=== PATIENT | female | born 1950 | race Caucasian/White ===

== ENCOUNTER 2024-04-01 09:28 | Outpatient (REF) | payer MEDICARE, SELFPAY ==
--- NOTE | ~2024-04-01 | XR_ITS ---
EXAMINATION: XR KNEE 3 VIEWS LEFT HISTORY: M25.562 - Pain in left knee COMPARISON: There are no prior studies available for comparison. FINDINGS: Three views of the left knee are submitted. Osseous mineralization is normal. There is no fracture or dislocation. There is severe osteoarthritis of the medial compartment with joint space narrowing and osteophyte formation. Milder changes are noted involving the lateral patellofemoral compartments there is no joint effusion. XR/XR knee LT 3V IMPRESSION: Osteoarthritis of the left knee as described. Electronically signed by: Reese Cartagena MD 04/04/2024 08:46 AM EST
== END 2024-04-01 09:29 | disposition home or self-care (01) ==
LOC: HO.HOSX 09:28
PROVIDERS: Visit Provider Orthopaedic Surgery
DX: M25.562 Pain in left knee (principal); M17.12 Unilateral primary osteoarthritis, left knee
CPT/HCPCS: 73562; 99212

== ENCOUNTER 2024-04-01 11:06 | Outpatient (AMB) | payer MEDICARE, SELFPAY ==
--- NOTE | 2024-04-01 11:07 | MHC.OFFVIS ---
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 She did undergo right total knee replacement surgery several years ago. She reports minimal discomfort in her right knee. She describes her left knee pain as sharp and severe in nature. She has failed the last 3 months of conservative treatment which has included Tylenol, meloxicam, topical creams and physical therapy exercises. She has had cortisone injections in the past which gave her minimal relief. She has not had a viscosupplementation injection. She wishes to hold off on left total knee replacement surgery for as long as possible. She states that her left knee pain is now interfering with her activities of daily living and her ability to sleep well through night. Allergies No Known Allergies Allergy (Verified 04/01/24 11:24) Medication List - Last Reviewed 04/01/24 by SHRADDHA Dooley albuterol sulfate 90 mcg/actuation inhalation azithromycin 250 mg PO DIRECTED bupropion HCl XL 300 mg PO DAILY meloxicam 15 mg PO DAILY mirabegron ER (Myrbetriq) 50 mg PO DAILY tacrolimus 0.1% topical DAILY PFS Social History (Updated 04/01/24 @ 11:26 by SHRADDHA Dooley) Patient Tobacco Use Status: Never used Tobacco Current occupational status: retired Current occupation: rt handed Physical Exam Vital Signs: BMI result Body Mass Index 25.4 Const Other: Well-nourished well-developed very friendly female awake alert and oriented x3 in no acute distress Extrem Other: Bilateral lower extremity examination shows good capillary refill, no skin lesions noted, normal sensation light touch Left knee examination shows a minimal effusion, palpable crepitus with range of motion, pain with range of motion, range of motion from -3 degrees to 115 degrees, no instability Results Reviewed Results Reviewed: X-rays of the patient's left knee show severe joint space narrowing, subchondral sclerosis, no acute bony abnormalities Assessment & Plan Assessment & Plan (1) Osteoarthritis of left knee: Code(s): M17.12 - Unilateral primary osteoarthritis, left knee Category: Medical Plan Mrs. Patel presents with progressively worsening left knee pain due to osteoarthritis. I had a lengthy discussion with the patient regarding the treatment options. She wishes to hold off on left total knee replacement surgery for as long as possible. I agree with this plan. She has not gotten good relief from cortisone injections in the past. Thus, I will see whether or not her insurance company will cover a viscosupplementation injection. I will see her back once the injection is available. If she fails continued non operative treatments we will further discuss the risks and benefits of left total knee replacement surgery. Feel free to call me at any time should questions regarding her orthopedic management arise. I spent 21 minutes in reviewing the patient's records and imaging studies, seeing the patient and documenting in the medical record. Orders: Orders XR knee LT 3V Today M25.562 - Pain in left knee Coding Level of Care Code Est Pt Level 3 (51780) Complex EM visit Add On G2211 Diagnoses Osteoarthritis of left knee M17.12
[2024-04-01 11:23] VITALS: BMI 25.4
--- OUTSIDE RECORDS SUMMARY | 2024-04-01 12:33 | XMS_ITS ---
Author Name [facility] Organization Unknown History of Medication Use Medication Directions Dispensed Refills Start Date End Date Stat bupropion HCl XL 300 mg 24 hr tablet, extended release TAKE 1 TABLET BY MOUTH EVERY DAY 12/09/2022 active amoxicillin 500 mg tablet TAKE 4 TABS 1 HOUR PRIOR TO DENTAL APPOINTMENT 12/09/2022 active oxybutynin chloride ER 15 mg tablet,extended release 24 hr TAKE 1 TABLET BY MOUTH EVERY DAY 12/09/2022 active meloxicam 15 mg tablet TAKE 1 TABLET (15 MG TOTAL) BY MOUTH NEEDED. 12/09/2022 active amoxicillin 500 mg capsule TAKE 4 TABS 1 HOUR PRIOR TO DENTAL APPOINTMENT 12/09/2022 active BinaxNOW COVID-19 Ag Self Test kit USE DIRECTED 12/09/2022 com pleted
--- OUTSIDE RECORDS SUMMARY | 2024-04-01 12:33 | XMS_ITS | Continuity of Care Document ---
Author Organization [facility] Address [address], [place] [address]- Care Team Providers Care Senior Teradata Developer Name Role Phone Oumou SHORE, Liborio Barcenas Primary Care Physician [id number] Date[facility]s): 02/19/24 - 03/20/24 [facility] [address], [address] [place] [address] Attending Physician: Baldo Soliman Admitting Physician: Baldo Soliman Referring Physician: Baldo Soliman Encounter Type: Triage Allergies, Adverse Reactions, Alerts No Known Allergies Immunizations Given and Recorded Vaccine Date Status Refusal Reason tetanus-diphtheria toxoids (Td) 03/26/10 Given Medications 20-30 calf compression stockings 20-30 calf compression stockings, See Instructions, # 2 each, Refills 2, Tot. Refills 2, Maintenance, use as directed, 05/25/15 11:00:12 AM EST, Compound Start Date: 05/25/15 Status: Ordered Quantity: 2.0 Unit: each Repeat number: 3 buPROPion 300 mg/24 hours (XL) oral tablet, extended release 1 tablet = 300 mg, By Mouth, Daily, # 30 tablet, 0 Refills, Maintenance, 08/24/20 12:03:00 PM EDT, ERTablet, Partial fill upon patient request if the prescription is for a schedule II opioid drug. Start Date: 08/24/20 Status: Ordered Quantity: 30.0 Unit: tablet Repeat number: 1 calcium and vitamin D combination 500 mg-200 iu oral tablet 0 Refills Start Date: 12/24/06 Status: Ordered Repeat number: 1 Compression Stockings See Instructions, # 4 each, Maintenance, surgical, knee length 20-30 mm Hg, 08/24/20 12:32:00 PM EDT,Supply Start Date: 08/24/20 Status: Ordered Quantity: 4.0 Unit: each Repeat number: 1 Glucosamine Chondroitin MSM Complex oral tablet 1 tablet, By Mouth, 3 times a day, 0 Refills, Maintenance, 11/18/10 11:26:52 AM EDT Start Date: 11/18/10 Status: Ordered Repeat number: 1 meloxicam 15 mg oral tablet See Instructions, 1 tablet By Mouth PRN, 0 Refills, Maintenance, 11/12/18 10:51:20 AM EDT Start Date: 11/12/18 Status: Ordered Repeat number: 1 multivitamin Multiple Vitamins oral tablet 1, tablet, By Mouth, Daily, 0 Refills Start Date: 12/24/06 Status: Ordered Repeat number: 1 Myrbetriq 50 mg oral tablet, extended release 1 tablet = 50 mg, By Mouth, Daily, # 90 tablet, 3 Refills, Maintenance, 02/19/24 9:53:00 AM EST, [facility], Partial fill upon patient request if the prescription is for a schedule II opioid drug., 159, cm, 08/31/23 16:43:00 EDT, Height, 58.7, kg, 02/14/23 12:03:00 EST, Dry Weight Start Date: 02/19/24 Status: Ordered Quantity: 90.0 Unit: tablet Repeat number: 4 sertraline 50 mg oral tablet See Instructions, week 1: take 1/2 tab daily weeks 2-3: take 1 tab daily week 4 and after: take 2 tabs daily, # 60 tablet, 1 Refills, Maintenance, 03/07/16 4:01:33 PM EST, [id number] Start Date: 03/07/16 Status: Ordered Quantity: 60.0 Unit: tablet Repeat number: 2 Turmeric = 300 mg, By Mouth, Daily, 0 Refills, Maintenance, 11/12/18 10:48:13 AM EDT Start Date: 11/12/18 Status: Ordered Repeat number: 1 Problem List Condition Confirmation Course Effective Dates Status Health St atus Informant Acute lumbar back pain Confirmed Active Ankle Sprain Confirmed 06/21/12 Active Anxiety Confirmed Active Arthralgia of the ankle and/or foot Confirmed Active Asymptomatic Varicose Veins Confirmed 01/03/11 Active Depression Confirmed Active External hemorrhoids Confirmed Active Hammer toe Confirmed Active Insomnia Confirmed Active Insomnia Confirmed Active Sprains and Strains of Knee and Leg Confirmed 01/03/11 Active Social History Social History Type Response Smoking Status Never smoker entered on: 11/15/15 Sex Sex Representation Female (finding) Laboratory * Event Display: Non BH Lab Results Authored Date: Patient Care team information Care Team Personnel Name: Oumou SHORE, Liborio Barcenas Position: Reference Physician Member Role: PCP Address: [address] [place] [address] [address] Telecom: Care Team Related Persons Name: CONOR HERNANDEZ Insurance Providers Guarantor name: JUAN HERNANDEZ Health Plan Information #: 1 Payer: NA Member Number: NA Policy Number: NA Group Number: NA
--- OUTSIDE RECORDS SUMMARY | 2024-04-01 12:33 | XMS_ITS | Data Portability ---
Author Organization [place] [facility] [place] Address [address] [facility] [address] [place] [address] Assessment Encounter Date Assessment Date Assessment LastModified by Organization Details LastModified Time 12/05/2022 12/05/2022 72-year-old female status post R-TKA 11/28/19. She appears to be doing well clinically they will continue with stretching exercises. There are no longer need to take antibiotic prophylaxis prior to dental work. If her dentist wishes to take over management they can do so. Follow-up visit 5 years for recall. Should patient have any orthopedic needs should they arise she should contact our office and should be referred to the appropriate specialist. Regarding her left knee intermittent pain we did discuss treatment options however she would like to hold at this time. If she does change her mind she will call our office and we will schedule an appointment accordingly. She agrees to the above-noted plan Indirect care and treatment in conjunction with Dr. Sales Additional treatment plan discussed with the patient (only initiated if in boldface font) otherwise not applicable. Treatment may include the following; - Provider focused nonsteroidal anti-inflammator y regimen (discussed were the pros, cons, benefits and risks as well as any black box warnings) in patients over 60 years old they should be very cautious in taking these medications due to potential decreased kidney function and or elevated blood pressure. - Analgesic pain medication for pain suppression (discussed were the pros, cons, benefits and risks as well as any black box warnings) - The use of topical pain relieving medication were discussed - The use of ice to decrease inflammation and pain - The use of assistive ambulatory devices for ambulation and fall prevention - Formal specific guided physical therapy program I reviewed my findings at length with the patient today. ??We discussed the nature and etiology of this problem along with current treatment options. We discussed the expected course and outcomes and what to expect. We also discussed risks and benefits. ?? All of their questions were answered today, and there was exhibited understanding and comprehension of all that was discussed. Time Spent: 10 minutes were spent reviewing previous imaging and charting. ??10 minutes were spent obtaining patient history. ??5 minutes were spent on physical exam. ??5??minutes were spent explaining diagnosis and assessment. Today's documentation was made using voice recognition software. This note may contain grammatical errors secondary to the software. Not available 12/07/2022 08:41:22 Plan of Treatment Reminders Order Date Submit Date Provider Last Modified By Organization Details Last Modified Time Details Appointments None record ed. Lab None record ed. Referral None record ed. Procedures None record ed. Surgeries None record ed. Imaging XR, knee, 4 or more view 023 12/06/19 23 [email or web address] [id number] [facility], [address], [place], [address], 3 10:56:36 XR, knee, 4 or more view 023 12/06/19 23 [email or web address] [facility], [address], [place], [address], 3 10:56:36 Medication Orders None record ed. Patient TargetsNo targets recorded. Patient Instructions Encounter Date Encounter Id Patient Instructions Last Modified By Organization Details Last Modified Time 12/05/2022 [id number] X-ray of the rig ht knee reveals well-seated well-positioned total knee arthroplasty without sign of loosening. Left knee AP, [place], lateral and sunrise view reveals tricompartmental severe degenerative change. Not available 12/07/2022 08:40:15 Reason for Referral None Reported. Medical Equipment None Reported. Medications Name Sig Start Date Stop Date Status Note LastModified by Organization Details LastModified Time amoxicillin 500 mg capsule TAKE 4 TABS 1 HOUR PRIOR TO DENTAL APPOINTME NT active Not Available Not Available No t Available oxybutynin chloride ER 15 mg tablet,exte nded release 24 hr TAKE 1 TABLET BY MOUTH EVERY DAY active Not Available Not Available No t Available meloxicam 15 mg tablet TAKE 1 TABLET (15 MG TOTAL) BY MOUTH NEEDED. active Not Available Not Available No t Available amoxicillin 500 mg tablet TAKE 4 TABS 1 HOUR PRIOR TO DENTAL APPOINTME NT 2022 active Not Available Not Available Not Avai lable bupropion HCl XL 300 mg 24 hr tablet, extended release TAKE 1 TABLET BY MOUTH EVERY DAY active Not Available Not Available No t Available BinaxNOW COVID-19 Ag Self Test kit USE DIRECTED 12/05 completed Not Available Not Available Not Available Vitals None Recorded Social History None recorded. Functional Status None recorded. Mental Status None recorded. Family History Nothing Reported. Medical History No medical history recorded. Gynecological HistoryNo gynecological history recorded. Obstetrics History GPAL:G 0 P 0 0 0 0 Past Encounters Encounter ID Performer Location Encounter Start Date Encounter Closed Date Diagnosis/Indication Diagnosis SNOMED-CT Code Diagnosis ICD10 Code Diagnosis Note [id number] MD LUPILLO [facility] [address] [facility] [address] [place] [address] 12/05/2022 13:04:58 12/05/2022 14:04:05 History of right total knee replacement [id number] 254265 Z96.651 Pain of le ft knee joint [id number] 66016 M25.562 Health Concerns Section Related Observation LastModified by Organization Detai ls LastModified Time None Recorded Concern Status LastModified by Organization Details LastModified Time None Recorded Advance Directives Directive None Recorded Payers Encounter Date Sequence Insurance Name Policy Number Policy Aaron Covered Member ID Aaron Member ID Guarantor Name 12/05/2022 1 [facility]: [place]IC[place] P[place] BLUE (MEDICARE REPLACEMENT PPO) [id number] Lucinda Patel [id number] Lucinda Patel Notes Date Note Type Note Provider Name and Address Organization Details Recorded Time 12/05/2022 text/html She does complai n of intermittent left knee pain however it is tolerable to her at this time. 72-year-old female status post R-TKA 11/28/19. Here for scheduled follow-up. Patient states she is doing well do stretching exercises takes antibiotics prior to dental work. No other complaints at this time. TAHIR BEAR PA-C [address] [facility] [address], [place], [address], [place] [facility], P 12/07/2022 08:41:40 OBGyn Episode No OBEpisode recorded.
== END 2024-04-01 11:41 | disposition home or self-care (01) ==
PROVIDERS: PCP Internal Medicine; Visit Provider Orthopaedic Surgery
DX: M17.12 Unilateral primary osteoarthritis, left knee (principal)
CPT/HCPCS: 99213; G2211

== ENCOUNTER 2024-07-31 11:32 | Outpatient (AMB) | payer MEDICARE, SELFPAY ==
--- NOTE | 2024-07-31 11:33 | A.OFFVIS_ITS ---
Vital Signs 07/31/24 11:36 Height 5 ft 0.5 in Weight 132 lb BMI 25.4 Intake Visit Reasons: Left knee pain Intake Note: Lucinda is a 73 year old female who presents with complaints of progressively worsening left knee pain. She did undergo right total knee replacement surgery approximately 3 years ago. She reports minimal discomfort in her right knee. She describes her left knee pain as sharp and severe in nature. She has failed the last 3 months of conservative treatment which has included Tylenol, meloxicam, topical creams and physical therapy exercises. She has had cortisone injections in the past which gave her minimal relief. She states that her left knee pain is now interfering with her activities of daily living and her ability to sleep well through night. Allergies No Known Allergies Allergy (Verified 07/31/24 11:36) Medication List - Last Reconciled 07/31/24 by Michelet Connors MD albuterol sulfate 90 mcg/actuation inhalation azithromycin 250 mg PO DIRECTED bupropion HCl XL 300 mg PO DAILY meloxicam 15 mg PO DAILY mirabegron ER (Myrbetriq) 50 mg PO DAILY tacrolimus 0.1% topical DAILY PFSH Social History Patient Tobacco Use Status: Never used Tobacco Current occupational status: retired Current occupation: rt handed Physical Exam Vital Signs: BMI result Body Mass Index 25.4 Const Other: Well-nourished well-developed very friendly female awake alert and oriented x3 in no acute distress Extrem Other: Bilateral lower extremity examination shows good capillary refill, no skin lesions noted, normal sensation light touch Left knee examination shows a minimal effusion, palpable crepitus with range of motion, pain with range of motion, range of motion from -3 degrees to 115 degrees, no instability Results Reviewed Results Reviewed: X-rays of the patient's left knee taken previously show end-stage degenerative joint disease with grade 4 [id number] arthritis, osteophyte formation, subchondral sclerosis, no acute bony abnormalities Assessment & Plan Assessment & Plan (1) Left knee pain: Code(s): M25.562 - Pain in left knee Category: Medical (2) Osteoarthritis of left knee: Code(s): M17.12 - Unilateral primary osteoarthritis, left knee Category: Medical Plan Ms. Patel presents with progressively worsening left knee pain due to end- stage degenerative joint disease. I had a lengthy discussion with the patient regarding the treatment options. At this point she appears to be failing continued non operative treatments. The risks and benefits of left total knee replacement surgery were discussed at length with the patient. She is interested in proceeding with surgery later this year. She will contact my office to pick a surgery date. I will see her back 1 week prior to her surgery to answer any final questions that she might have. Feel free to call me at any time should questions regarding her orthopedic management arise. I spent 22 minutes in reviewing the patient's records and imaging studies, seeing the patient and documenting in the medical record. Coding Level of Care Code Est Pt Level 3 (48783) Complex EM visit Add On G2211 Diagnoses Left knee pain M25.562 Osteoarthritis of left knee M17.12
[2024-07-31 11:36] VITALS: BMI 25.4
--- OUTSIDE RECORDS SUMMARY | 2024-07-31 13:05 | XMS_ITS | Clinical Summary ---
Author Organization [facility] Address [address] [place] [address] Care Team Providers Care Slab Puller Name Role Phone Liborio Coello MD Primary Care Provider [phone] Allergies Active Allergy Reactions Criticality Noted Date Comments Bee Pollen Swelling,Rash Low 04/11/2018 Rash>significant bruising - pt advised to carry epipen for future Sertraline Other (See Comments) Low 04/11/2018 No energy, sleepy Medications Medication Sig Dispensed Refills Start Date End Date Status Probiotic Product (ALIGN) capsule Take 1 capsule by mouth daily. 0 Active CINNAMON PO Take 1,000 mg by mouth daily as needed. 0 Active raloxifene (EVISTA) tablet 60 mg Take 60 mg by mouth daily. 0 Active buPROPion (WELLBUTRIN SR) 150 MG 12 hr tablet Take 150 mg by mouth 2 (two) times a day. 0 10/13/2019 Active DULoxetine HCl 30 MG CSDR Take 30 mg by mouth daily. 0 10/09/2019 Active LUTEIN PO Take 1 caplet by mouth daily. 0 Active Multiple Vitamin (MULTI-VITAMIN) tablet Take 1 tablet by mouth daily. 0 Active oxybutynin (DITROPAN XL) 15 MG 24 hr tablet Take 15 mg by mouth daily. 0 Active Misc Natural Products (OSTEO BI-FLEX JOINT SHIELD PO) Take 2 tablets by mouth daily. 0 Active Calcium Citrate-Vitamin D (CALCIUM CITRATE + D3 PO) Take 1 tablet by mouth every evening. 0 Active cholecalciferol (VITAMIN D3) 10 MCG (400 UNIT) CAPS capsule Take 1 capsule by mouth every evening. 0 Active oxyCODONE (ROXICODONE) 5 MG immediate release tablet Take 1 tablet (5 mg total) by mouth every 4 (four) hours as needed. 40 tablet 0 11/28/2019 Active aspirin EC 81 MG EC tablet Take 1 tablet (81 mg total) by mouth 2 (two) times a day after meals. 84 tablet 0 11/28/2019 Active senna-docusate (PERICOLACE) 8.6-50 MG Take 1 tablet by mouth 2 (two) times a day. 20 tablet 0 11/28/2019 Active methocarbamol (ROBAXIN) 750 MG tablet Take 1 tablet (750 mg total) by mouth every 6 (six) hours as needed. 40 tablet 0 11/28/2019 Active amoxicillin (AMOXIL) 500 MG tablet Take 4 tabs 1 hour prior to dental appointment 20 tablet 3 12/11/2019 Active darifenacin (ENABLEX) 7.5 MG 24 hr tablet 0 01/22/2020 Active meloxicam (MOBIC) 15 MG tablet Take 1 tablet (15 mg total) by mouth daily. 30 tablet 3 12/14/2020 Active Active Problems Problem Noted Date Diagnosed Date Arthritis of right knee 11/27/2019 Arthritis of knee, right 07/05/2018 Arthritis of knee, left 07/05/2018 Family History Medical History Relation Name Comments Hypertension Father Cancer Mother Diabetes Mother Relation Name Status Comments Father Mother Social History Tobacco Use Types Packs/Day Years Used Date Smoking Tobacco: Never Smokeless Tobacco: Never Alcohol Use Standard Drinks/Week Comments Yes 3 (1 standard drink = 0.6 oz pur e alcohol) Sex and Gender Information Value Date Recorded Sex Assigned at Female 11/11/2019 11:17 AM EDT Gender Identity Female 11/11/2019 11:17 AM EDT Sexual Orientation Straight 11/27/2019 7: 07 AM EDT Job Start Date Occupation Industry Not on file Not on file Not on file Last Filed Vital Signs Vital Sign Reading Time Taken Comments Blood Pressure 112/75 11/28/2019 8:11 AM EDT Pulse 65 11/28/2019 8:11 AM EDT Temperature 36.7 ??C (98 ??F) 11/28/2019 8:11 AM EDT Respiratory Rate 16 11/28/2019 8:11 AM EDT Oxygen Saturation 98% 11/28/2019 8:11 AM EDT Inhaled Oxygen Concentration - - Weight 68 kg (150 lb) 11/27/2019 6:55 AM EDT Height 154.9 cm (5' 1 ) 11/27/2019 6:55 AM EDT Body Mass Index 28.34 11/27/2019 6:55 AM EDT Plan of Treatment Health Maintenance Due Date Last Done Comments Depression Screening 1962 Preventative Health Evaluation 12/05/1969 Colon Cancer Screening (Colonoscopy) 12/05/1996 Breast Cancer Screening (Mammogram) 12/05/2001 Shingrix-Zoster Vaccine (1 o f 2) 12/05/2001 Fall Risk Assessment 12/05/2016 Osteoporosis Screening (DEXA Scan) 12/05/2016 COVID-19 Vaccine (3 - 2023-2 5 season) 2023 05/18/2020, 04/27/2020 Influenza Vaccine (#1) 2023 , 01/10/2019, 12/25/2017 RSV Adult > 60+ Yrs or (1 - 1-dose 75+ series) 12/05/2026 DTap / Tdap / Td (2 - Td or Tdap) 10/05/2027 10/04/2017 Pneumococcal Vaccine Completed 01/10/2019, 12/13/2017 Hepatitis C Screening Completed 09/14/2020 Hepatitis B Vaccines Aged Out No long er eligible based on patient's age to complete this topic RSV Ped < 20 months Aged Out No longe r eligible based on patient's age to complete this topic Medical Devices Implanted Type Area Central Office Associate Device Identifier Shelf Expiration Date Model / Serial / Lot Cement Simplex P Radiopaque Full Dose Bone 10 Pack - [id number] - [id number] Implanted:Qty: 1 on 11/27/2019 by Michelet Connors MD at [facility] Right: Knee [employer] 6191-1-010 / / Description:LOT [id number] Cement Simplex P Radiopaque Full Dose Bone 10 Pack - [id number] - [id number] Implanted:Qty: 1 on 11/27/2019 by Michelet Connors MD at [facility] Right: Knee [employer] 6191-1-010 / / [id number] Component Triathlon 3 Posterior Stabilized Cemented Femoral - [id number] - [id number] Implanted:Qty: 1 on 11/27/2019 by Michelet Connors MD at [facility] Right: Knee [employer] [id number] 04/20/2024 5515-F-302 / / [id number] Peg Triathlon Modular Fix Distal Femur Knee - [id number] - [id number] Implanted:Qty: 1 on 11/27/2019 by Michelet Connors MD at [facility] Right: Knee [employer] [id number] 02/28/2024 5575-X-000 / / [id number] Baseplate Triathlon 4 Primary Cemented Tibial Knee - [id number] - [id number] Implanted:Qty: 1 on 11/27/2019 by Michelet Connors MD at [facility] Right: Knee [employer] [id number] 05/18/2024 5520-B-400 / / [id number] Insert Triathlon 4 11mm Posterior Stabilized Bearing X3 - [id number] - [id number] Implanted:Qty: 1 on 11/27/2019 by Michelet Connors MD at [facility] Right: Knee [employer] [id number] 01/16/2024 5532-G-411 / / [id number] Component Triathlon 8mm 29mm Symmetric X3 Ptlar Totl Knee - [id number] - [id number] Implanted:Qty: 1 on 11/27/2019 by Michelet Connors MD at [facility] Right: Knee [employer] [id number] 05/06/2024 5550-G-298 / / [id number] Advance Directives For more information, please contact: [phone] Latest Code Status on File Code Status Date Activated Date Inactivated Comments Full Code 11/27/2019 10:24 AM 11/28/2019 8:01 PM This c ode status was ascertained in the following way: discussion with patient . Code Status History Code Status Date Activated Date Inactivated Comments Full Code 11/27/2019 6:36 AM 11/27/2019 10:24 AM This c ode status was ascertained in the following way: discussion with patient . Care Teams Slab Puller Relationship Specialty Start Date End Date Liborio Coello MD [address] [place] [id number] PCP - General Internal Medicine 07/02/18
--- OUTSIDE RECORDS SUMMARY | 2024-07-31 13:05 | XMS_ITS | Data Portability ---
Author Organization [place] [facility] [place] Address [address] [facility] [address] [place] [address] Assessment Encounter Date Assessment Date Assessment LastModified [...] findings at length with the patient today. ? ? ?We discussed the nature and etiology of this problem along with current treatment options. We discussed the expected course and outcomes and what to expect. We also discussed risks and benefits. ? ? ? All of their questions were answered today, and there was exhibited understanding and comprehension of all that was discussed. Time Spent: 10 minutes were spent reviewing previous imaging and charting. ? ? ?10 minutes were spent obtaining patient history. ? ? ?5 minutes were spent on physical exam. ? ? ?5? ? ?minutes were spent explaining diagnosis and assessment. Today's [...] 4 or more view 023 12/06/19 23 [email or web address] [facility], [address], [place], [address], 3 10:56:36 XR, knee, 4 or more view 023 12/06/19 23 [email or web address] [facility], [address], [place], [address], 3 10:56:36 Medication Orders None record ed. Patient TargetsNo targets recorded. Patient Instructions Encounter Date Encounter Id Patient Instructions Last Modified By Organization Details Last Modified Time 12/05/2022 [id number] X-ray of the rig ht knee reveals [...] SNOMED-CT Code Diagnosis ICD10 Code Diagnosis Note [id number] SHANNON ALEMAN [address] [address] 12/05/2022 13:04:58 12/05/2022 14:04:05 History of right total knee replacement [id number] 633139 Z96.651 Pain of le ft knee joint [id number] 59489 M25.562 Health Concerns Section Related Observation LastModified by Organization Detai ls LastModified Time None Recorded Concern Status LastModified by Organization Details LastModified Time None Recorded Advance Directives Directive None Recorded Payers Encounter Date Sequence Insurance Name Policy Number Policy Aaron Covered Member ID Aaron Member ID Guarantor Name 12/05/2022 1 [facility]: MEDIC[place] P[place] BLUE (MEDICARE REPLACEMENT PPO) [id number] Lucinda Patel [id number] Lucinda Patel Notes Date Note Type [...] complaints at this time. TAHIR BEAR PA-C [address] [place] [address],[facility] [address], [place], [address], [place] [facility], P 12/07/2022 08:41:40 OBGyn Episode No OBEpisode recorded.
== END 2024-07-31 11:53 | disposition home or self-care (01) ==
LOC: HO.HOS 11:33
PROVIDERS: Visit Provider Orthopaedic Surgery
DX: M25.562 Pain in left knee (principal); M17.12 Unilateral primary osteoarthritis, left knee
CPT/HCPCS: 99213; G2211

== ENCOUNTER → 2024-07-31 11:32 | Outpatient (BNVA) | payer MEDICARE, SELFPAY | PROVIDERS: Visit Provider Orthopaedic Surgery | DX: M25.562 Pain in left knee (principal); M17.12 Unilateral primary osteoarthritis, left knee | CPT/HCPCS: 99212 ==

== ENCOUNTER → 2024-12-01 13:07 | Outpatient (BNV) | payer MEDICARE, SELFPAY | PROVIDERS: PCP Internal Medicine; Visit Provider Internal Medicine Cardiovascular Disease | DX: R94.31 Abnormal electrocardiogram [ECG] [EKG] (principal); Z01.810 Encounter for preprocedural cardiovascular examination | CPT/HCPCS: 93010 ==

== ENCOUNTER → 2024-12-05 13:14 | Outpatient (BNVA) | payer MEDICARE, SELFPAY | DX: Z01.818 Encounter for other preprocedural examination (principal) ==

== ENCOUNTER 2024-12-25 08:13 | Outpatient (AMB) | payer MEDICARE, SELFPAY ==
--- OUTSIDE RECORDS SUMMARY | 2024-01-08 12:07 | XMS_ITS | Encounter Summary ---
Author Organization [facility] Address [address] [place] [address] Care Team Providers Care Overseamer Name Role Phone Liborio Coello MD Primary Care Provider +1- [phone] Encounter Details Date Type Department Care Team (Latest Contact Info) Description 01/08/2024 12:07 PM EDT Hospital Encounter TH HISTORIC ENCOUNTERS EASTERN CONVERSION ONLY Arslan Delgadillo MD Need updated address, phone and fax Constipation, unspecified Social History Tobacco Use Types [...] PM EDT Narrative 01/09/2024 8:05 AM EDT [facility] Diagnostic Imaging Department [address] [place] [address] Patient: JUAN PATEL /Age/Sex: 1950 - 73 - F Unit#: [id number] Location/Status: SPDIGEN/REG CLI Mnemonic/Ordering Site: ABDOFLEREC/SPDI Ordering [...] There is evidence of moderate constipation. Code 49026 Dictating Physician: SHUKRI SURESH MD Electronically Signed by: SHUKRI SURESH MD Dic Date/Time: 01/09/24803 Sign date/Time: 01/09/24804 Procedure Note Shukri Suresh MD - 01/22/2024 [facility] Diagnostic Imaging Department [address] [place], [place] [address] Patient: JUAN PATEL /Age/Sex: 1950 - 73 - F Unit#: [id number] Location/Status: SPDIGEN/REG CLI Mnemonic/Ordering Site: [facility] Ordering Physician: ARSLAN DELGADILLO MD DR Abdomen [...] pattern. There is evidence ofmoderate constipation. Code 74437 Dictating Physician: SHUKRI SURESH MD Electronically Signed by: SHUKRI SURESH MD Dic Date/Time: 01/09/24803 Sign date/Time: 01/09/24804 Arslan Delgadillo MD IMG XR PROCEDURES Final Result documented in this encounter Visit Diagnoses Diagnosis Constipation, unspecified documented in this encounter Care Teams Overseamer Relationship Specialty Start Date End Date Liborio Coello MD [address] [place] [address] PCP - General Internal Medicine 07/02/18 documented as of this encounter
--- NOTE | 2024-12-25 08:20 | A.OFFVIS_ITS ---
Vital Signs 12/25/24 08:29 Height 5 ft 0.5 in Weight 135 lb BMI 25.9 Intake Visit Reasons: Pre-Op: L TKA w/ 12/29/24 Intake Note: Lucinda is a 74 year old female who presents with complaints of progressively worsening left knee pain. The patient did undergo right total knee replacement surgery in 2021. She reports minimal discomfort in her right knee. She describes her left knee pain as sharp and severe in nature. Her left knee pain has gotten worse over the last few years in spite of continued non operative treatments. She has had multiple injections given into her left knee. The most recent injection gave her minimal relief. At this point her left knee pain is interfering with her activities of daily living and her ability to sleep well through the night. She has tried Tylenol and anti-inflammatory medicines which gave her only mild relief. The patient has difficulty walking even short distances because of her left knee pain. Allergies bee pollen (bee stings) Allergy (Intermediate, Verified 12/25/24 08:29) Swelling for several weeks Medication List - Last Reconciled 12/25/24 by Michelet Connors MD Bifidobacterium longum (Align (B.longum)) 10,000,000 cells PO DAILY biotin 10,000 mcg PO DAILY bupropion HCl XL 300 mg PO QAM calcium carbonate (Calcium 500) 1,000 mg PO BEDTIME cholecalciferol (vitamin D3) (Vitamin D3) 10 mcg PO BEDTIME docusate sodium (Colace) 100 mg PO QAM meloxicam 15 mg PO DAILY PRN quwrsikkpnfi-syct-trpux acid 18-400 mg-mcg (Centrum Women) 1 tab PO QAM polyethylene glycol 3350 (Miralax) 17 grams PO 2XW vibegron (Gemtesa) 75 mg PO QAM walker Folding front wheeled walker [facility] Medical History Family history of colon cancer in mother Spinal stenosis Scoliosis Back pain Varicose vein of leg Depression Osteoarthritis Surgical History History of lumpectomy of left breast Hx of varicose vein ligation H/O colonoscopy History of total right knee replacement Social History Are you a primary memory care program director to a significant other at home: Yes (son w/Down's Syndrome) Do you presently have visiting nurse or other home services: No Patient Tobacco Use Status: Never used Tobacco Current occupational status: retired Current occupation: rt handed Physical Exam Const Other: Well-nourished well-developed very friendly female awake alert and oriented x3 in no acute distress Extrem Other: Bilateral lower extremity examination shows good capillary refill, no skin lesions noted, normal sensation light touch Left knee examination shows a minimal effusion, palpable crepitus with range of motion, pain with range of motion, range of motion from -3 degrees to 115 degrees, no instability Results Reviewed Results Reviewed: X-rays of the patient's left knee show end-stage degenerative joint disease with grade 4 rzxf-fs-sbso arthritis, subchondral sclerosis, osteophyte formation, no acute bony abnormalities Assessment & Plan Assessment & Plan (1) Osteoarthritis of left knee: Code(s): M17.12 - Unilateral primary osteoarthritis, left knee Category: Medical Plan Ms. Patel presents with progressively worsening left knee pain due to end- stage degenerative joint disease. I had a lengthy discussion with the patient regarding the treatment options. At this point she has failed continued non operative treatments. The risks and benefits of left total knee replacement surgery were discussed at length with the patient. The patient wishes to proceed with surgery. mountain services manager will be consulted following her surgery for home physical therapy and nursing. The patient will follow-up as instructed. Feel free to call me at any time should questions regarding her orthopedic management arise. I spent 20 minutes in reviewing the patient's records and imaging studies, seeing the patient and documenting in the medical record. Orders: Orders Hemoglobin A1c Today Z01.818 - Encounter for other preprocedural examination Coding Level of Care Code Est Pt Level 3 (13941) Complex EM visit Add On G2211 Diagnoses Osteoarthritis of left knee M17.12
--- OUTSIDE RECORDS SUMMARY | 2024-12-25 08:26 | XMS_ITS | Clinical Summary ---
Author Organization [facility] [address] [facility] Address [address] [place] [address] Phone Care Team Providers Care Entry Level Account Representative Name Role Phone Liborio Coello MD Primary Care Provider [phone] Allergies Active Allergy Reactions Criticality Noted Date [...] 1 tablet by mouth. Active glucos sul 7KEt-jya-nurbc- C-Mn (Glucosamine Chondroitin) 550-30-1 mg capsule Take [...] Patient aware to call or message in [facility] pending symptomatic improvement. Patient would like to [...] sites 04/11/2018 Overview (09/24/2024): Followed by her food inspector. Treated with Evista until 2020. By patient report bone density had improved and treatment was discontinued in 2020. 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 ([facility] V24) 04/11/2018 Ankle sprain 06/21/2012 Varicose vein of leg 01/03/2011 Overview (09/24/2024): Edema is well controlled with compression stockings. Immunizations Immunization Administration Dates Next Due Pfizer SARS-CoV-2 COVID-19, mRNA, LNP-S, preservative free 05/18/2020,04/27/2020 Surgical History Surgery Date Site/Laterality Comments OTHER SURGICAL HISTORY Bilateral PROCEDURE:veiin ablation;COMMENT:X2 BREAST LUMPECTOMY Left PROCEDURE:BREAST LUMPECTOMY KNEE SURGERY Right PROCEDURE:KNEE SURGERY;COMMENT:SCOPE COLONOSCOPY 04/20/2021 FLEXIBLE SIGMOIDOSCOPY PROCEDURE:SIGMOIDOSCOPY TOTAL KNEE ARTHROPLASTY 11/27/2019 Right PROCEDURE:TOTAL KNEE ARTHROPLASTY;COMMENT:Procedure: REPLACEMENT TOTAL KNEE; Surgeon: Michelet Connors MD; Location: [facility] Service: Orthopedics; Laterality: Right; JOINT REPLACEMENT [...] 05/06/2024 11:20 AM EST Plan of Treatment Health Maintenance Due Date Last Done Comments Breast Cancer Screening 1950 Zoster Vaccines (1 of 2) 12/05/1970 Falls Risk Assessment 02/22/2022 Medicare Annual Wellness Visit 02/22/2022 Osteoporosis Screening (Bone Density Screening) 02/22/2022 Social Influencers of Health Screening 02/22/2022 Depression Screening 03/26/2024 COVID-19 Vaccine ( season) 2024 04/14/2023, 02/07/2022, 02/08/2021, Additional history exists Influenza Vaccine (#1) 2024 , 01/19/2023, 01/13/2022, [...] this topic Medical Devices Implanted Type Area Business Development Associate Device Identifier Shelf Expiration Date Model / Serial / Lot Cement Simplex P Radiopaque Full Dose Bone 10 Pack - [id number] Implanted:Qty: 1 on 11/27/2019 by Michelet Connors MD Right: Knee [employer] 6191-010 / / Description:LOT [id number] Cement Simplex P Radiopaque Full Dose Bone 10 Pack - [id number] Implanted:Qty: 1 on 11/27/2019 by Michelet Connors MD Right: Knee [employer] 6191-010 / / [id number] Component Triathlon 3 Posterior Stabilized Cemented Femoral - [id number] Implanted:Qty: 1 on 11/27/2019 by Michelet Connors MD Right: Knee [employer] [id number] 04/20/2024 5515-F-302 / / [id number] Peg Triathlon Modular Fix Distal Femur Knee - [id number] Implanted:Qty: 1 on 11/27/2019 by Michelet Connors MD Right: Knee [employer] [id number] 02/28/2024 5575-X-000 / / [id number] Baseplate Triathlon 4 Primary Cemented Tibial Knee - [id number] Implanted:Qty: 1 on 11/27/2019 by Michelet Connors MD Right: Knee [employer] [id number] 05/18/2024 5520-B-400 / / [id number] Insert Triathlon 4 11mm Posterior Stabilized Bearing X3 - [id number] Implanted:Qty: 1 on 11/27/2019 by Michelet Connors MD Right: Knee [employer] [id number] 01/16/2024 5532-G-411 / / [id number] Component Triathlon 8mm 29mm Symmetric X3 Ptlar Totl Knee - [id number] Implanted:Qty: 1 on 11/27/2019 by Michelet Connors MD Right: Knee [employer] [id number] 05/06/2024 5550-G-298 / / PTRL Procedures Procedure Name Priority Date/Time Associated Diagnosis Comments EXTERNAL COLONOSCOPY REPORT Routine 05/19/2024 10:16 AM EST from Last 3 Months or Most Recently Relevant to Health Maintenance Results * External Colonoscopy Report (05/19/2024 10:16 AM EST) Anatomical Region Laterality Modality Endoscopy Historical Provider GI~PROCEDURE ORDERABLES F inal Result from Last 3 Months or Most Recently Relevant to Health Maintenance Insurance BLUE [employer]OSS - [place] MEDICARE ADVANTAGE Care Teams Entry Level Account Representative Relationship Specialty Start Date End Date Liborio Coello MD [address] [place] [address] PCP - General Internal Medicine 07/02/18
--- OUTSIDE RECORDS SUMMARY | 2024-12-25 08:26 | XMS_ITS | Encounter Summary ---
Author Organization [facility] Address [address] [facility] [address] [place] [address] Phone Care Team Providers Care Connection Worker Name Role Phone Liborio Coello MD Primary Care Provider [phone] Eamon Mayer MD Unavailable Arslan Hamlin MD Unavailable [phone] Michelet Connors MD Unavailable [phone] Karthik Patel DO Unavailable [phone] Reason for Visit * Reason Onset Date Comments Pre-op Visit 10/09/2024 [facility] + + Left total knee replacement Encounter Details Date Type Department Care Team (Late st Contact Info) Description 10/09/2024 Telephone [employer] [address] [place] [address] Liborio Coello MD [address] [place] [address], [address] [place] [address] [email or web address] Pre-op Visit ([facility] + + Left total knee replacement [...] as of this encounter Progress Notes * Nuria Spears - 12/01/2024 3:36 PM EDT [facility] called and pt already had lab work, and EKG for pre-op and they will fax the results. * Cyndy Sarmiento MA - 10/20/2024 1:01 PM EDT Received pre-op form from [facility]. Pt need appointment- surgery date . * Latesha Ramirez - 10/09/2024 9:16 AM EDT [facility] Phrases: Pre-op Appointment Request Type of Anesthesia: Spinal and block Procedure / Surgery Type: Left total knee replacement Location of Procedure: [facility] Is EKG needed:YES/NO: yes Is Lab Work needed:YES/NO: yes Procedure Date: 12/29/2024 Name of Surgeon (First, Last): Dr. Michelet Connors Name of person to contact with Pre-op info, including contact number: Lisa Confirm you have informed the patient that the Pre-op Paperwork must be faxed to the office before the appt.:yes or no or NA: Yes [facility] Call [facility] CSS Agent (Please do not reply to this user, as this inbox is not monitored.) Thank you documented in this encounter Plan of Treatment Upcoming Encounters Date Type Department Care Team ([facility] st Contact Info) Description 07/16/2025 11:00 AM EDT Office Visit [address] [place] [address] Liborio Coello MD [address] [place] [address], [address] [place] [address] documented as of this encounter Visit Diagnoses Not on filedocumented in this encounter Additional Health Concerns Assessment Noted Time PHQ-2 Depression Total Score: 0 07/09/19 25 1:06 AM EDT documented as of this encounter Care Teams Connection Worker Relationship Specialty Start Date End Date Liborio Coello MD [address] [place] [address], [address] [place] [address] PCP - General Family Medicine 04/01/18 Eamon Mayer MD [address] [place] [address] Obstetrics and Gynecology 01/10/19 Arslan Hamlin MD [address] [place] [address] Gastroenterology 01/10/19 Michelet Connors MD [address] [place] [address] [place] [address] Orthopedic Surgery 11/03/19 Karthik Patel DO [address] [place] [address] Dr [address] [place] [address] [email or web address] Cardiology 06/15/20 documented as of this encounter Additional Source Comments The information contained in this document represents components of the legal health record. It is not the complete legal health record.[facility]
--- OUTSIDE RECORDS SUMMARY | 2024-12-25 08:26 | XMS_ITS | Clinical Summary ---
Author Organization [facility] Address [address] [facility] [address] [place] [address] Phone Care Team Providers Care Warehouse Order Puller Name Role Phone Liborio Coello MD Primary Care Provider [phone] Eamon Mayer MD Unavailable Arslan Hamlin MD Unavailable [phone] Michelet Connors MD Unavailable [phone] Karthik Patel DO Unavailable Allergies Active Allergy Reactions Criticality Noted Date [...] NEEDED. 30 tablet 2 08/05/19 25 Active Automated Blood Pressure Kit - M Cuff (Arm circ 22-32 cm/8.6-12.6 in)Indications:Ess ential hypertension Check BP every 2-3 times a week 1 kit 08/15/19 Active GEMTESA 75 mg tablet Take 75 mg by mouth daily. 11/27/19 25 Active docusate sodium (COLACE) 100 MG capsule 04/26/19 Active ciclopirox-salicyl ic acid 0.77-2 % Sham Apply topically. 025 Discontin ued(No longer taking) triamcinolone acetonide 0.1 % cream Apply topically 2 (two) times a day. 025 Discontin ued(No longer taking) tkjfcjbv-axvl-zyg9 -C-breana-bosw (OSTEO BI-FLEX TRIPLE STRENGTH) 750 mg-644 mg- 30 mg-1 mg Tab Take by mouth. Plus turmeric 025 Discontin ued(No longer taking) Active Problems Problem Noted Date Diagnosed Date Degeneration of intervertebr al disc of lumbar region with discogenic back pain 12/04/2024 Assessment & Plan (12/04/2024 3:53 PM EDT): Better with home exercise program, continue the same. Overactive bladder 08/14/2024 Assessment & Plan (12/04/2024 3:51 PM EDT): Doing well with current medication, continue the same. Assessment & Plan (08/14/2024 4:05 PM EDT): If she is not able to tolerate Myrbetriq, I would consider trial of Gemtesa Chronic constipation 07/10/2024 Assessment & Plan (07/10/2024 2:17 PM EDT): Has improved using a stool softener as recommended by her supervisor intermediates, but she continues to have symptoms. They [...] Hepatic hemangioma 11/03/2019 Overview (11/03/2019): Dx approx 1999, followed by Dr Boubacar VALENTIN Recurrent major depressive disorder in partial r emission 04/11/2018 Assessment & Plan (12/04/2024 3:51 PM EDT): Well-controlled, continue current medication. Assessment & Plan (07/10/2024 2:16 PM EDT): [...] son moving back to his apartment in [place] and concerns about her 's alcohol use. [...] second opinion I can refer her to [facility] vascular. Assessment & Plan (11/03/2019 12:07 PM EDT): Ankle edema is due to varicose veins. This should not be a significant complicating factor for surgery. Osteopenia of multiple sites 04/11/2018 Overview (09/14/2020): Followed by her hand gluer and slicer. Treated with Evista until 2020. By patient [...] her diet. She will follow-up with her hand gluer and slicer to discuss when she is due for another bone density. I told her that I can manage this in the future once her hand gluer and slicer retires. Primary osteoarthritis of left knee 04/11/2018 Assessment & Plan (12/04/2024 3:50 PM EDT): Labs and EKG done earlier this week at [facility] were reviewed and showed no significant abnormality. The patient is at low risk for complication related to surgery and there is no contraindication to proceed with her knee arthroplasty. Assessment & Plan (10/31/2022 1:00 PM EDT): Doing reasonably well, only rarely needing medication to control her pain. Continue current activity and use meloxicam as needed. Assessment & Plan (10/11/2021 12:35 PM EDT): Gait abnormality likely has to do with arthritic changes in her knees and her back. Agree with recommendation from her employee service officer to start physical therapy. If this is [...] Patient is planning to follow-up with Dr. Cnonors to discuss a total knee replacement. Assessment & Plan (04/12/2018 5:15 PM EST): Patient's pain is most likely due to osteoarthritis in her knees. We will start her on meloxicam. If she does not see any improvement next week she will call back and we will try her on diclofenac. If this does not improve her pain I would refer to rheumatology. Bee sting allergy 04/11/2018 Primary osteoarthritis involving multiple joints 04/11/2018 Assessment & Plan (05/07/2023 1:06 PM EST): Doing well, continue current medication Resolved Problems Problem Noted Date Diagnosed Date Resolved Date Essential hypertension 08/14/202408/14 Elevated blood pressure read ing in office without diagnosis of hypertension 08/14/20242024 Assessment & Plan (08/14/2024 4:05 PM EDT): [...] so helpful with her overactive bladder symptoms. COVID-19 11/26/2023 07/10/2024 Assessment & Plan (11/26/2023 [...] needed at this point. Abdominal bloating 07/14/2019 Assessment & Plan (07/14/2019 11:49 AM EDT): [...] me know if things are gradually improving. Malaise and fatigue 10/10/2018 12/05/19 25 Assessment & Plan (10/10/2018 10:45 AM EDT): Most likely this is due to venlafaxine so I will change her to duloxetine. Patient would like to have some labs checked to make sure there is nothing else abnormal so we will do that today. Primary osteoarthritis of knee 04/12/2018 10/10/2018 Mild single current episode of major depressive disorder 04/11/2018 10/10/2018 Degenerative lumbar spinal stenosis 04/11/2018 12/04/2024 Assessment & Plan (04/11/2022 4:05 PM EST): [...] Either way this may improve with meloxicam Encounters Date Type Department Care Team Description 12/17/[address] [place] [address] Liborio Coello MD orders (Hearing test) 12/04/2024 3:30 PM EDT Office Visit [address] [place] [address] Liborio Coello MD Primary osteoarthritis of left knee (Primary Dx); Degeneration of intervertebral disc of lumbar region with discogenic back pain; Overactive bladder; Recurrent major depressive disorder in partial remission 12/02/[address] [address] Liborio Coello MD Triage (Covid question) 11/11/[address] [place] [address] Cyndy Sarmiento MA Forms & Paperwork ([facility] PT 10/31/24) 11/05/[address] [place] [address] Cyndy Sarmiento MA Forms & Paperwork ([facility] PT) 10/09/[address] [place] [address] Liborio Coello MD Pre-op Visit ([facility] + + Left total knee replacement [...] Sign Reading Time Taken Comments Blood Pressure 127/75 12/04/2024 3:23 PM EDT Pulse 57 12/04/2024 3:17 PM EDT Temperature 36.7 C (98 F) 12/04/2024 3:17 PM EDT Respiratory Rate - - Oxygen Saturation 100% 12/04/2024 3:17 PM EDT Inhaled Oxygen Concentration - - Weight 60.3 kg (133 lb) 12/04/2024 3:17 PM EDT Height 151.7 cm (4' 11.72 ) 12/04/2024 3:17 PM E DT Body Mass Index 26.22 12/04/2024 3:17 PM EDT Plan of Treatment Upcoming Encounters Date Type Department Care Team (Late st Contact Info) Description 07/16/2025 11:00 AM EDT Office Visit [facility] Medical [facility] Medicine [address] [place] [address] [place] [address] Liborio Coello MD [address] [facility], [address] [place] [address] Health Maintenance Due Date Last Done Comments HEPATITIS A VACCINES (1 of 2 - Risk 2-dose series) 12/05/1970 COLOGUARD 12/05/1996 FIT TEST 12/05/1996 FOBT 12/05/1996 SIGMOIDOSCOPY 12/05/1996 VIRTUAL COLONOSCOPY 12/05/1996 ZOSTER VACCINES (1 of 2) 12/05/2001 RSV VACCINE (1 - Risk 60-74 years 1-dose series) 2011 INFLUENZA VACCINE (#1) 2024 , 01/19/2023, 01/13/2022, Additional history exists MAMMOGRAM 10/31/2024 10/31/2022, 04/26, 01/17/2018 COVID-19 VACCINE ( season) 2024 04/14/2023, 02/07/2022, 02/08/2021, Additional history exists DEPRESSION SCREENING 07/08/2025 07/08/2024 COLONOSCOPY 04/20/2026 04/20/2021, 02/20/2018 COLORECTAL CANCER SCREENING 04/20/2026 Adult Td,Tdap Booster 10/05/2027 10/04/2017, 011 OSTEOPOROSIS SCREENING INITIAL (ONE-TIME) 11/03/2030 Postponed from 12/05/2016 (Not Clinically Appropriate) PNEUMOCOCCAL VACCINES (50+ years) Completed 01/10/2019, 12/13/2017 HEPATITIS C SCREENING Completed 09/14/2020 SMOKING STATUS SCREENING (Once After 26 Yrs) Completed 12/04/2024 HIB VACCINES Aged Out No longer eligi [...] AM EDT Breast cancer screening by mammogram HM COLONOSCOPY FOR RESULT ENTRY ONLY Routine 04/20/2021 HEPATITIS C ANTIBODY, QUALITATIVE Routine 09/14/2020 12:29 PM EDT Need for hepatitis C screening test from Last 3 Months or Most Recently Relevant to Health Maintenance Results * COLONOSCOPY FOR RESULT ENTRY ONLY (04/20/2021) Historical Provider HEALTH MAINTENANCE Edited Result - Final * Hepatitis C antibody, qualitative (09/14/2020 12:29 PM EDT) HCV NON-REACTIV E NON-REACTI VE [facility] Blood 09/14/2020 12:2 9 PM EDT 09/14/2020 12:34 PM EDT Liborio Coello MD LAB BLOOD ORDERABLES Final Result [address] [address] * HM MAMMOGRAPHY FOR RESULT ENTRY ONLY (05/11/2020) us Historical Provider HEALTH MAINTENANCE Edited Result - Final from Last 3 Months or Most Recently Relevant to Health Maintenance [place] [address] [place] [address] MEDICARE PPO BLUE REPLACEMENT Care Teams Warehouse Order Puller Relationship Specialty Start Date End Date Liborio Coello MD [address] [place] [address], [address] [place] [address] PCP - General Family Medicine 04/01/18 Eamon Mayer MD [address] [place] [address] Obstetrics and Gynecology 01/10/19 Arslan Hamlin MD [address] [place] [address] Gastroenterology 01/10/19 Michelet Connors MD [address] [place] [address] Dr [address] [place] [address] Orthopedic Surgery 11/03/19 Karthik Patel DO [address] [place] [address] Dr [address] [place] [address] Cardiology 06/15/20 Additional Source Comments The information contained in this document represents components of the legal health record. It is not the complete legal health record.[facility]
--- OUTSIDE RECORDS SUMMARY | 2024-12-25 08:26 | XMS_ITS | Clinical Summary ---
Author Organization [facility] Address [address] [place] [address] Care Team Providers Care Dispersion Mixer Name Role Phone Liborio Coello MD Primary Care Provider [phone] Allergies Active Allergy Reactions Criticality Noted Date [...] (DEXA Scan) 12/05/2016 COVID-19 Vaccine (3 - 2024-2 6 season) 2024 05/18/2020, 04/27/2020 Influenza Vaccine (#1) 2024 , [...] this topic Medical Devices Implanted Type Area Third Mate Device Identifier Shelf Expiration Date Model / Serial / Lot Cement Simplex P Radiopaque Full Dose Bone 10 Pack - [id number] - [id number] Implanted:Qty: 1 on 11/27/2019 by Michelet Connors MD at [facility] Right: Knee [employer] 6191-1-010 / / Description:LOT [id number] Cement Simplex P Radiopaque Full Dose Bone 10 Pack - [id number] - [id number] Implanted:Qty: 1 on 11/27/2019 by Michelet Connors MD at [facility] Right: Knee [employer] 6191-1-010 / / [id number] Component Triathlon 3 Posterior Stabilized Cemented Femoral - [id number] - [id number] Implanted:Qty: 1 on 11/27/2019 by Michelet Connors MD at [facility] Right: Knee [employer] [id number] 04/20/2024 5515-F-302 / / [id number] Peg Triathlon Modular Fix Distal Femur Knee - 135388 - [id number] Implanted:Qty: 1 on 11/27/2019 by Michelet Connors MD at [facility] Right: Knee [employer] [id number] 02/28/2024 5575-X-000 / / [id number] Baseplate Triathlon 4 Primary Cemented Tibial Knee - [id number] - [id number] Implanted:Qty: 1 on 11/27/2019 by Michelet Connors MD at [facility] Right: Knee [employer] [id number] 05/18/2024 5520-B-400 / / [id number] Insert Triathlon 4 11mm Posterior Stabilized Bearing X3 - [id number] - [id number] Implanted:Qty: 1 on 11/27/2019 by Michelet Connors MD at [facility] Right: Knee [employer] [id number] 01/16/2024 5532-G-411 / / [id number] Component Triathlon 8mm 29mm Symmetric X3 Ptlar Totl Knee - [id number] - [id number] Implanted:Qty: 1 on 11/27/2019 by Michelet Connors MD at [facility] Right: Knee [employer] [id number] 05/06/2024 5550-G-298 / / PTRL Advance Directives For more information, please contact: [phone] Latest Code Status on File Code Status [...] way: discussion with patient . Care Teams Dispersion Mixer Relationship Specialty Start Date End Date Liborio Coello MD [address] [place] [id number] PCP - General Internal Medicine 07/02/18
--- OUTSIDE RECORDS SUMMARY | 2024-12-25 08:26 | XMS_ITS | Data Portability ---
Author Organization [place] [facility] Address [address] [place] [address] Assessment Encounter Date Assessment Date Assessment LastModified [...] findings at length with the patient today. We discussed the nature and etiology of this problem along with current treatment options. We discussed the expected course and outcomes and what to expect. We also discussed risks and benefits. All of their questions were answered today, and there was exhibited understanding and comprehension of all that was discussed. Time Spent: 10 minutes were spent reviewing previous imaging and charting. 10 minutes were spent obtaining patient history. 5 minutes were spent on physical exam. 5minutes were spent explaining diagnosis and assessment. Today's [...] knee, 4 or more view 023 12/06/19 [email or web address] [facility], [address], [place], [address], 3 10:56:36 XR, knee, 4 or more view 023 12/06/19 [email or web address] [facility], [address], [place], [address], 3 10:56:36 Medication Orders None record ed. Patient TargetsNo targets recorded. Patient Instructions Encounter Date Encounter Id Patient Instructions Last Modified By Organization Details Last Modified Time 12/05/2022 [id number] X-ray of the rig ht knee reveals well-seated well-positioned total knee arthroplasty without sign of loosening. Left knee AP, [place], lateral and sunrise view reveals tricompartmental severe degenerative change. Not available 12/07/2022 08:40:15 Reason for Referral None Reported. Problems Name Problem SNOMED Code Status Onset Date Resolution Date Notes Provider Name and Address Organization Details Recorded Time Arthritis of right knee joint 82964691914 48376 Active 2018 Arthritis of knee, right Art hritis of right knee Not Available [facility] 5 00:26:20 Arthritis of left knee joint 10277202168 84651 Active 2018 Arthritis of knee, left Not Available [facility] 5 00:26:21 Problem Notes None recorded. Medical Equipment None Reported. Allergies Allergen ID Allergen Name Allergen Category Reaction Reaction Severity Criticality Documentation Date Start Date Code Code System Note Provider Name and Address Organization Details Recorded Time 017314 sertralin e medicatio n Not available Not available Not available 12/16/20242018 72067 RxNorm React ion: Other (See Comme nts), sever ity: Unkno wn;No energ y, sleep y Not Available [facility] 5 01:30:50 465556 bee pollen environme nt,medica tion Not available Not available Not available 12/16/20242018 42259 7 RxNorm React ion: Swell ing, sever ity: Unkno wn;Re actio n: Rash, sever ity: Unkno wn;Ra sh>si gnifi cant bruis ing - pt advis ed to carry epipe n for futur e Not Available [facility] 5 01:30:51 Medications Name Sig Start Date Stop Date Status Note LastModified by Organization Details LastModified Time amoxicillin 500 mg capsule TAKE 4 TABS 1 HOUR PRIOR TO DENTAL APPOINTME NT active Not Available Not Available No t Available bupropion HCl SR 150 mg tablet,12 hr sustained-r elease Take 150 mg by mouth 2 (two) times a day. 2019 active Not Available Not Available Not Avai lable venlafaxine ER 75 mg capsule,ext ended release 24 hr Take 75 mg by mouth. 11/10 completed Not Available Not Available Not Available oxybutynin chloride ER 15 mg tablet,exte nded release 24 hr Take 15 mg by mouth daily. active Not Available Not Available No t Available meloxicam 15 mg tablet TAKE 1 TABLET (15 MG TOTAL) BY MOUTH NEEDED. active Not Available Not Available No t Available sennosides 8.6 mg-docusate sodium 50 mg tablet Take 1 tablet by mouth 2 (two) times a day. 2019 active Not Available Not Available Not Avai lable lidocaine-p rilocaine 2.5 %-2.5 % topical kit APPLY TO AFFECTED AREA 2 HOURS PRIOR TO APPOINTME NT 11/10 completed Not Available Not Available Not Available aspirin 81 mg tablet,laurent yed release Take 1 tablet (81 mg total) by mouth 2 (two) times a day after meals. 2019 active Not Available Not Available Not Avai lable amoxicillin 500 mg tablet TAKE 4 TABS 1 HOUR PRIOR TO DENTAL APPOINTME NT 2022 active Not Available Not Available Not Avai lable methocarbam ol 750 mg tablet Take 1 tablet (750 mg total) by mouth every 6 (six) hours as needed. 2019 active Not Available Not Available Not Avai lable methylpredn isolone acetate 40 mg/mL suspension for injection 07/05 completed Not Available Not Available Not Available glucosamine sulfate 500 mg capsule Take 500 mg by mouth. 11/10 completed Not Available Not Available Not Available omeprazole 20 mg capsule,del ayed release Take 1 capsule (20 mg total) by mouth daily. 11/28 completed Not Available Not Available Not Available raloxifene 60 mg tablet Take 60 mg by mouth daily. active Not Available Not Available No t Available epinephrine 0.3 mg/0.3 mL injection, auto-inject or Inject 0.3 mg into the muscle. 11/10 completed Not Available Not Available Not Available oxycodone 5 mg tablet Take 1 tablet (5 mg total) by mouth every 4 (four) hours as needed. 2019 active Not Available Not Available Not Avai lable cholecalcif sylvester (vitamin D3) 10 mcg (400 unit) capsule Take 1 capsule by mouth every evening. active Not Available Not Available No t Available bupropion HCl XL 300 mg 24 hr tablet, extended release TAKE 1 TABLET BY MOUTH EVERY DAY active Not Available Not Available No t Available darifenacin ER 7.5 mg tablet,exte nded release 24 hr 2019 active Not Available Not Available Not Avai lable calcium 500 mg (as carbonate)- vit D3 10 mcg (400 unit) chewable tablet Chew 1 tablet by mouth. 11/10 completed Not Available Not Available Not Available lidocaine (PF) 10 mg/mL (1 %) injection solution 07/05 completed Not Available Not Available Not Available duloxetine 30 mg capsule,del ayed release sprinkle Take 30 mg by mouth daily. 2019 active Not Available Not Available Not Avai lable BinaxNOW COVID-19 Ag Self Test kit USE [...] Diagnosis SNOMED-CT Code Diagnosis ICD10 Code Diagnosis IMO Codes Diagnosis Note [id number] SHANNON ALEMAN [facility] [address] [facility] [address] [place] [address] 12/05/2022 13:04:58 12/05/2022 14:04:05 History of right total knee replacement [id number] 992181 Z96.651 Pain of le ft knee joint 1390595167 59128 M25.562 Health Concerns Section Related Observation LastModified by Organization Detai ls LastModified Time None Recorded Concern Status LastModified by Organization Details LastModified Time None Recorded Advance Directives Directive None Recorded Payers Insurance Date Sequence Insurance Name Policy Number Policy Aaron Covered Member ID Aaron Member ID Guarantor Name 12/05/2022 1 [facility] MEDICARE PPO BLUE (MEDICARE REPLACEMENT PPO) [id number] Lucinda Patel [id number] Lucinda Patel Notes Date Note Type Note Provider Name and Address Organization Details Recorded Time 12/05/2022 text/html She does complain of intermittent left knee pain however it is tolerable to her at this time. 72-year-old female status post R-TKA 11/28/19. Here for scheduled follow-up. Patient states she is doing well do stretching exercises takes antibiotics prior to dental work. No other complaints at this time. TAHIR BEAR PA-C [address] [facility] [address], [place], [address], [place] [facility] 12/07/2022 08:41:40 OBGyn Episode No OBEpisode recorded.
[2024-12-25 08:29] VITALS: BMI 25.9
== END 2024-12-25 08:43 | disposition home or self-care (01) ==
LOC: HO.HOS 08:14
PROVIDERS: Visit Provider Orthopaedic Surgery
DX: M17.12 Unilateral primary osteoarthritis, left knee (principal)
CPT/HCPCS: 99024

== ENCOUNTER → 2024-12-25 08:13 | Outpatient (BNVA) | payer MEDICARE, SELFPAY | PROVIDERS: Visit Provider Orthopaedic Surgery | DX: Z01.818 Encounter for other preprocedural examination (principal); M17.12 Unilateral primary osteoarthritis, left knee | CPT/HCPCS: 99212 ==

== ENCOUNTER 2024-12-29 06:15 | Day surgery (SDC) | payer MEDICARE, SELFPAY ==
--- OUTSIDE RECORDS SUMMARY | 2024-01-08 12:07 | XMS_ITS | Encounter Summary ---
Author Organization Address [address] [place] [address] Care Team Providers Care Hay Buckler Name Role Phone Liborio Coello MD Primary Care Provider +1- [phone] Encounter Details Date Type Department Care Team (Latest Contact Info) Description 01/08/2024 12:07 PM EDT Hospital Encounter TH HISTORIC ENCOUNTERS EASTERN CONVERSION ONLY Arslan Delgadillo MD [address] [place] [address] Constipation, unspecified Social History Tobacco Use Types [...] as of this encounter Plan of Treatment Upcoming Encounters Date Type Department Care Team (Late st Contact Info) Description 12/12/2024 2:20 PM EDT Office Visit Gastroenterology - [address] [place] [phone] Pauly Cherry PA [address] [place] [address] documented as of this encounter Procedures Procedure Name Priority Date/Time Associated Diagnosis Comments ABDOMEN FLAT AND ERECT Routine 01/09/2024 8:05 AM EDT Constipation, unspecified documented in this encounter Results * DR ABDOMEN FLAT AND ERECT (01/09/2024 8:05 AM EDT) Anatomical Region Laterality Modality Radiographic Nisha ging 01/08/2024 12:1 5 PM EDT Narrative 01/09/2024 8:05 AM EDT [facility] Diagnostic Imaging Department [address] [place] [address] Patient: JUAN PATEL /Age/Sex: 1950 - 73 - F Unit#: [id number] Location/Status: SPDIGEN/REG CLI Mnemonic/Ordering Site: [facility] Ordering Physician: ARSLAN DELGADILLO [...] There is evidence of moderate constipation. Code 14827 Dictating Physician: SHUKRI SURESH MD Electronically Signed by: SHUKRI SURESH MD Dic Date/Time: 01/09/24803 Sign date/Time: 01/09/24804 Procedure Note Shukri Suresh MD - 01/22/2024 [facility] Diagnostic Imaging Department [address] [place] [address] Patient: JUAN PATEL /Age/Sex: 1950 - 73 - F Unit#: [id number] Location/Status: SPDIGEN/REG CLI Mnemonic/Ordering Site: ABDOFLEREC/SPDI Ordering [...] pattern. There is evidence ofmoderate constipation. Code 33049 Dictating Physician: SHUKRI SURESH MD Electronically Signed by: SHUKRI SURESH MD Dic Date/Time: 01/09/24803 Sign date/Time: 01/09/24804 Arslan Delgadillo MD IMG XR PROCEDURES Final Result documented in this encounter Visit Diagnoses Diagnosis Constipation, unspecified documented in this encounter Care Teams Hay Buckler Relationship Specialty Start Date End Date Liborio Coello MD [address] [place] [address] PCP - General Internal Medicine 07/02/18 documented as of this encounter
--- OUTSIDE RECORDS SUMMARY | 2024-11-20 12:46 | XMS_ITS | Encounter Summary ---
Author Organization [facility] Address [address] [place] [id number] Phone Care Team Providers Care Law Firm Administrator Name Role Phone Liborio Coello MD Primary Care Provider [phone] Eamon Mayer MD Unavailable Arslan Hamlin MD Unavailable [phone] Michelet Connors MD Unavailable [phone] Karthik Patel DO Unavailable [phone] Reason for Visit * Reason Onset Date Comments Pre-op Visit 10/09/2024 [facility] + + Left total knee replacement Encounter Details Date Type Department Care Team (Late st Contact Info) Description 10/09/2024 Telephone [facility] [address] [place] [address] Liborio Coello MD [address] [place] [address], [address] [place] [address] [email or web address] Pre-op Visit ([facility] + + Left total knee replacement ) Social History Tobacco Use Types Packs/Day Years Used Date Smoking Tobacco: Never Smokeless Tobacco: Never Alcohol Use Standard Drinks/Week Comments Yes 1 (1 standard drink = 0.6 oz pur e alcohol) wine Education Answer Date Recorded Are you interested in more education? Not on priscilla e 07/21/2022 Are you concerned about learning? Not on file 07/21/2022 No 07/21/2022 No 07/21/2022 Digital Access Answer Date Recorded No 08/19/2022 No 08/19/2022 Reliable internet access at home? Not on file 08/19/2022 Device with a working camera? Not on file Intimate Partner Violence Answer Date R ecorded Denied Basic Needs Not on file 07/08/2024 In the past 12 months have y ou been in a relationship with a person who hurts, threatens, or tries to control you? No 07/08/2024 Worried food would run out Not on file 07/08 In the past 12 months have y ou been in a relationship with a person who hurts, threatens, or tries to control you? No 07/08/2024 Comments Unknown Sex and Gender Information Value Date Recorded Sex Assigned at Not on file Legal Sex Female 1:41 PM EST Gender Identity Not on file Sexual Orientation Not on file documented as of this encounter Progress Notes * Cyndy Sarmiento MA - 10/20/2024 1:01 PM EDT Received pre-op form from [facility]. Pt need appointment- surgery date . * Latesha Ramirez - 10/09/2024 9:16 AM EDT [facility] Phrases: Pre-op Appointment Request Type of Anesthesia: Spinal and block Procedure / Surgery Type: Left total knee replacement Location of Procedure: [facility] Is EKG needed:YES/NO: yes Is Lab Work needed:YES/NO: yes Procedure Date: 12/29/2024 Name of Surgeon (First, Last): Dr. Michelet Connors Name of person to contact with Pre-op info, including contact number: Lisa Confirm you have informed the patient that the Pre-op Paperwork must be faxed to the office before the appt.:yes or no or NA: Yes [facility] CSS Agent (Please do not reply to this user, as this inbox is not monitored.) Thank you documented in this encounter Plan of Treatment Upcoming Encounters Date Type Department Care Team (Late st Contact Info) Description 12/04/2024 3:30 PM EDT Office Visit [address] [place] [address] Liborio Coello MD [address] [place] [address], [address] [place] [address] [email or web address] 07/16/2025 11:00 AM EDT Office Visit [address] [place] [address] Liborio Coello MD [address] [place] [address], [address] [place] [address] documented as of this encounter Visit Diagnoses Not on filedocumented in this encounter Additional Health Concerns Assessment Noted Time PHQ-2 Depression Total Score: 0 07/09/19 25 1:06 AM EDT documented as of this encounter Care Teams Law Firm Administrator Relationship Specialty Start Date End Date Liborio Coello MD [address] [place] [address], [address] [place] [address] PCP - General Family Medicine 04/01/18 Eamon Mayer MD [address] [place] [address] Obstetrics and Gynecology 01/10/19 Arslan Hamlin MD [address] [place] [address] Gastroenterology 01/10/19 Michelet Connors MD [address] [place] [address] [place] [address] Orthopedic Surgery 11/03/19 Karthik Patel DO [address] [place] [address] Dr [address] [place] [address] Cardiology 06/15/20 documented as of this encounter Additional Source Comments The information contained in this document represents components of the legal health record. It is not the complete legal health record.[facility]
--- OUTSIDE RECORDS SUMMARY | 2024-11-20 12:46 | XMS_ITS ---
Author Name [facility] Organization Unknown History of Medication Use Medication Directions Dispensed Refills Start Date End Date Stat us amoxicillin 500 mg tablet TAKE 4 TABS 1 HOUR PRIOR TO DENTAL APPOINTMENT 06/19/2022 active BinaxNOW COVID-19 Ag Self Test kit USE DIRECTED 12/05/2022 com pleted meloxicam 15 mg tablet TAKE 1 TABLET (15 MG TOTAL) BY MOUTH NEEDED. active oxybutynin chloride ER 15 mg tablet,extended release 24 hr TAKE 1 TABLET BY MOUTH EVERY DAY active Encounters Encounter Type Encounter Reason Primary Diagnosis Location Date Ambulatory [facility] 12/05/2022 Ambulatory [facility] 12/04/2022 Ambulatory [facility] 12/04/2022 Ambulatory [facility] 12/04/2022 Ambulatory [facility] 12/04/2022 Ambulatory [facility] 12/04/2022
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
--- OUTSIDE RECORDS SUMMARY | 2024-11-20 12:46 | XMS_ITS | Clinical Summary ---
Author Organization [facility] Address [address] [place] [address] Care Team Providers Care Forensic Document Examiner Name Role Phone Liborio Coello MD Primary Care Provider [phone] [phone] Allergies Active Allergy Reactions Criticality Noted Date [...] 65 11/28/2019 8:11 AM EDT Temperature 36.7 C (98 F) 11/28/2019 8:11 AM EDT Respiratory Rate 16 [...] season) 2023 05/18/2020, 04/27/2020 Influenza Vaccine (#1) 2024 , 01/10/2019, 12/25/2017 RSV Adult > 60+ [...] this topic Medical Devices Implanted Type Area Vehicle Damage Appraiser Device Identifier Shelf Expiration Date Model / Serial / Lot Cement Simplex P Radiopaque Full Dose Bone 10 Pack - [id number] - [id number] Implanted:Qty: 1 on 11/27/2019 by Michelet Connors MD at [facility] and [facility] Right: Knee [employer] 6191-1-010 / / Description:LOT [id number] Cement Simplex P Radiopaque Full Dose Bone 10 Pack - [id number] - [id number] Implanted:Qty: 1 on 11/27/2019 by Michelet Connors MD at [facility] Right: Knee [employer] 6191-1-010 / / [id number] Component Triathlon 3 Posterior Stabilized Cemented Femoral - [id number] - [id number] Implanted:Qty: 1 on 11/27/2019 by Michelet Connors MD at [facility] and [facility] Right: Knee [employer] [id number] 04/20/2024 5515-F-302 / / [id number] Peg Triathlon Modular Fix Distal Femur Knee - [id number] - [id number] Implanted:Qty: 1 on 11/27/2019 by Michelet Connors MD at [facility] and [facility] Right: Knee [employer] [id number] 02/28/2024 5575-X-000 / / [id number] Baseplate Triathlon 4 Primary Cemented Tibial Knee - [id number] - [id number] Implanted:Qty: 1 on 11/27/2019 by Michelet Connors MD at [facility] and [facility] Right: Knee [employer] [id number] 05/18/2024 5520-B-400 / / [id number] Insert Triathlon 4 11mm Posterior Stabilized Bearing X3 - [id number] - [id number] Implanted:Qty: 1 on 11/27/2019 by Michelet Connors MD at [facility] and [facility] Right: Knee [employer] [id number] 01/16/2024 5532-G-411 / / [id number] Component Triathlon 8mm 29mm Symmetric X3 Ptlar Totl Knee - [id number] - [id number] Implanted:Qty: 1 on 11/27/2019 by iMchelet Connors MD at [facility] and [facility] Right: Knee [employer] [id number] 05/06/2024 5550-G-298 / / PTRL Advance Directives For more information, please contact: [phone] Latest Code Status on File Code Status [...] way: discussion with patient . Care Teams Forensic Document Examiner Relationship Specialty Start Date End Date Liborio Coello MD [address] [place] [id number] PCP - General Internal Medicine 07/02/18
--- OUTSIDE RECORDS SUMMARY | 2024-11-20 12:46 | XMS_ITS | Clinical Summary ---
Author Organization [facility] Address [address] [place] [address] Phone Care Team Providers Care Road Gang Supervisor Name Role Phone Liborio Coello MD Primary Care Provider [phone] Allergies Active Allergy Reactions Criticality Noted Date Comments Bee Pollen Rash,Swelling Low 04/11/2018 Rash>significant bruising - pt advised to carry epipen for future Sertraline Other,Unknown Low 04/11/2018 No energy, sleepy Medications tacrolimus (PROTOPIC) 0.1 % ointment Apply 1 Application topically 2 (two) times a day. APPLY TO AFFECTED AREA 4 Active calcium citrate-vitamin D3 200 mg-6.25 mcg (250 unit) tablet Take 1 tablet by mouth. Active glucos sul 6RGn-zeh-yiqxe- C-Mn (Glucosamine Chondroitin) 550-30-1 mg capsule Take 1 tablet by mouth. 1 Active cholecalciferol (VITAMIN D-3) 10 mcg (400 unit) capsule Take 1 capsule (400 Units total) by mouth 1 (one) time each day in the evening. Active buPROPion XL (WELLBUTRIN XL) 300 mg 24 hr tablet Take 1 tablet (300 mg total) by mouth 1 (one) time each day. Active biotin 5,000 mcg tablet,disinteg rating Take 5,000 mcg by mouth daily. 3 Active Bifidobacterium infantis (Align) 4 mg capsule Take 1 capsule by mouth daily. Active amoxicillin (AMOXIL) 500 mg capsule TAKE 4 TABS 1 HOUR PRIOR TO DENTAL APPOINTMENT 4 Active Myrbetriq 25 mg 24 hr tablet Take 1 tablet (25 mg total) by mouth. 4 Active meloxicam (MOBIC) 15 mg tablet TAKE 1 TABLET (15 MG TOTAL) BY MOUTH NEEDED. Active Active Problems Problem Noted Date Diagnosed Date Acute lumbar back pain 09/24/2024 Anxiety 09/24/2024 External hemorrhoids 09/24/2024 Hammer toe 09/24/2024 Insomnia 09/24/2024 Pain in joint involving ankle and foot Osteoarthritis of both knees 05/06/2024 Colon polyps 05/06/2024 Benign breast lumps 05/06/2024 Irritable bowel syndrome with constipation 05/06 Assessment & Plan (05/06/2024 5:15 PM EST): Improved on last KUB compared to December 2023 KUB. Symptomatically improving. Long discussion regarding IBS and constipation prevention. Continue miralax as needed pending stool consistency. Okay to switch off align to another probiotic, but if probiotic does not contain a fiber component, I recommended the patient start either Metamucil or Benefiber for fiber supplementation. Patient aware to call or message in [employer] pending symptomatic improvement. Patient would like to continue follow ups, but I will extend follow up timeline at this time given her improvement, she is aware she may be seen sooner as needed. 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 Treated with Evista until 2020. By patient report bone density had improved and treatment was discontinued in 2020. 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 ([facility] V24) 04/11/2018 Ankle sprain 06/21/2012 Varicose vein of leg 01/03/2011 Overview (09/24/2024): Edema is well controlled with compression stockings. Immunizations Name Administration Dates Next Due Pfizer SARS-CoV-2 COVID-19, mRNA, LNP-S, preservative free 05/18/2020,04/27/2020 Surgical History Surgery Date Site/Laterality Comments OTHER SURGICAL HISTORY Bilateral PROCEDURE:veiin ablation;COMMENT:X2 BREAST LUMPECTOMY Left PROCEDURE:BREAST LUMPECTOMY KNEE SURGERY Right PROCEDURE:KNEE SURGERY;COMMENT:SCOPE COLONOSCOPY 04/20/2021 FLEXIBLE SIGMOIDOSCOPY PROCEDURE:SIGMOIDOSCOPY TOTAL KNEE ARTHROPLASTY 11/27/2019 Right PROCEDURE:TOTAL KNEE ARTHROPLASTY;COMMENT:Procedure: REPLACEMENT TOTAL KNEE; Surgeon: Michelet Connors MD; Location: [facility] ([facility]); Service: Orthopedics; Laterality: Right; JOINT REPLACEMENT PROCEDURE:JOINT REPLACEMENT FLEXIBLE SIGMOIDOSCOPY 09/30/2018 COLONOSCOPY 02/20/2018 SSx1, serrateed adenoma at rectum, lymphoid polyp at cecum COLONOSCOPY 06/23/2013 COLONOSCOPY 04/29/2008 HPx1 COLONOSCOPY 04/08/2004 COLONOSCOPY 12/12/2000 COLONOSCOPY 04/29/1997 Medical History Medical History Date Comments Osteoporosis DX:Osteoporosis Osteoarthritis DX:Osteoarthriti s Urinary incontinence DX:Urinary incontinence Depression DX:Depression PONV (postoperative nausea and vomiting) DX:PONV (postoperative nausea and vomiting) Family history of deep vein thrombosis DX:Family history of deep vein thrombosis;COMMENT:MOTHER ON COUMADIN Urinary urgency DX:Urinary urgen cy Colon polyp Irritable bowel syndrome Family History Medical History Relation Name Comments Colonic polyp Brother colon polyps v s colon cancer at age 34 Hypertension Father Colon cancer Mother Sabine Campo, Diabetes Mother Sabine Campo, Relation Name Status Comments Brother Father Mother Sabine Campo, Social History Tobacco Use Types Packs/Day Years [...] on file Sexual Orientation Not on file Obstetrics History Last Filed Vital Signs Vital Sign Reading Time Taken Comments Blood Pressure - - Pulse - - Temperature - - Respiratory Rate - - Oxygen Saturation - - Inhaled Oxygen Concentration - - Weight 60.6 kg (133 lb 9.6 oz) 05/06/2024 11:20 AM EST Height 153.7 cm (5' 0.5 ) 05/06/2024 11:20 AM ES T Body Mass Index 25.66 05/06/2024 11:20 AM EST Plan of Treatment Upcoming Encounters Date Type Department Care Team (Late st Contact Info) Description 12/12/2024 2:20 PM EDT Office Visit Gastroenterology - [address] [place] [phone] Pauly Cherry PA [address] [place] [phone] Health Maintenance Due Date Last Done Comments Breast Cancer Screening 1950 Zoster Vaccines (1 of 2) 12/05/1970 Falls Risk Assessment 02/22/2022 Medicare Annual Wellness Visit 02/22/2022 Osteoporosis Screening (Bone Density Screening) 02/22/2022 Social Influencers of Health Screening 02/22/2022 COVID-19 Vaccine ( season) 2023 04/14/2023, 02/07/2022, 02/08/2021, Additional history exists Depression Screening 03/26/2024 Influenza Vaccine (#1) 2024 , 01/19/2023, 01/13/2022, Additional history exists RSV Immunization Adult Patients (1 - 1-dose 75+ series) 12/05/2026 DTaP,Tdap,and Td Vaccines (3 - Td or Tdap) 10/05/2027 10/04/2017, 03/26/2010 Colorectal Cancer Screening: Colonoscopy 05/19/2034 05/19/2024 Pneumococcal Vaccine: 50+ Years Completed 01/10/2019, 12/13/2017 Hepatitis C Screening Completed 09/14/2020 HIB Vaccines Aged Out No longer eligi ble based on patient's age to complete this topic HPV Vaccines Aged Out No longer eligi ble based on patient's age to complete this topic Hepatitis A Vaccines Aged Out No long er eligible based on patient's age to complete this topic Hepatitis B Vaccines Aged Out No long er eligible based on patient's age to complete this topic IPV Vaccines Aged Out No longer eligi ble based on patient's age to complete this topic MMR Vaccines Aged Out No longer eligi ble based on patient's age to complete this topic Meningococcal ACWY Vaccine Aged Out N o longer eligible based on patient's age to complete this topic Meningococcal B Vaccine Aged Out No l onger eligible based on patient's age to complete this topic RSV Immunization Patients Under 20 months Aged Out No longer eligible based on patient's age to complete this topic Varicella Vaccines Aged Out No longer eligible based on patient's age to complete this topic Medical Devices Implanted Type Area Cold Saw Operator Device Identifier Shelf Expiration Date Model / Serial / Lot Cement Simplex P Radiopaque Full Dose Bone 10 Pack - [id number] Implanted:Qty: 1 on 11/27/2019 by Michelet Connors MD Right: Knee [employer] 6191-1-010 / / Description:LOT [id number] Cement Simplex P Radiopaque Full Dose Bone 10 Pack - [id number] Implanted:Qty: 1 on 11/27/2019 by Michelet Connors MD Right: Knee [employer] 6191-1-010 / / [id number] Component Triathlon 3 Posterior Stabilized Cemented Femoral - [id number] Implanted:Qty: 1 on 11/27/2019 by Michelet Connors MD Right: Knee [employer] [id number] 04/20/2024 5515-F-302 / / [id number] Peg Triathlon Modular Fix Distal Femur Knee - [id number] Implanted:Qty: 1 on 11/27/2019 by Michelet Connors MD Right: Knee [employer] [id number] 02/28/2024 5575-X-000 / / [id number] Baseplate Triathlon 4 Primary Cemented Tibial Knee - [id number] Implanted:Qty: 1 on 11/27/2019 by Michelet Connors MD Right: Knee [employer] [id number] 05/18/2024 5520-B-400 / / [id number] Insert Triathlon 4 11mm Posterior Stabilized Bearing X3 - [id number] Implanted:Qty: 1 on 11/27/2019 by Michelet Connors MD Right: Knee [employer] [id number] 01/16/2024 5532-G-411 / / [id number] Component Triathlon 8mm 29mm Symmetric X3 Ptlar Totl Knee - [id number] Implanted:Qty: 1 on 11/27/2019 by Michelet Connors MD Right: Knee [employer] [id number] 05/06/2024 5550-G-298 / / PTRL Procedures Procedure Name Priority Date/Time Associated Diagnosis Comments EXTERNAL COLONOSCOPY REPORT Routine 05/19/2024 10:16 AM EST from Last 3 Months or Most Recently Relevant to Health Maintenance Results * External Colonoscopy Report (05/19/2024 10:16 AM EST) Anatomical Region Laterality Modality Endoscopy us Historical Provider GI~PROCEDURE ORDERABLES F inal Result from Last 3 Months or Most Recently Relevant to Health Maintenance Insurance [employer]UE [employer] - [place] MEDICARE ADVANTAGE Care Teams Road Gang Supervisor Relationship Specialty Start Date End Date Liborio Coello MD [address] [place] [address] PCP - General Internal Medicine 07/02/18
--- NOTE | 2024-12-01 | ECG_ITS ---
Test Reason : preop Blood Pressure : */* mmHG Vent. Rate : 67 BPM Atrial Rate : 67 BPM P-R Int : 154 ms QRS Dur : 78 ms QT Int : 372 ms P-R-T Axes : 60 32 48 degrees QTcB Int : 393 ms Normal sinus rhythm Septal infarct , age undetermined Abnormal ECG No previous ECGs available Referred By: Lynn Gold Electronically Signed By: MG PERKINS MD
[2024-12-01 12:19] VITALS: BP 124/67; PULSE 72; RESP 18; O2SAT 98; BMI 25.5
--- NOTE | 2024-12-01 12:29 | HO.ANESPROP2 ---
Documented by User: Lynn Gold NP 12/25/24 13:28 HPI - Anesthesia Eval Consult details Narrative: 73yo F for Left Knee Replacement Total, 12/29/24 Medically optimized per PCP No recent illness No CP/SOB with a lot of outdoor walking, travel Spinal Stenosis: unsure of level - no treatments/surgery Possible DNR? Pt is going to check and bring forms to ortho preop for scanning into record PMFSH Active Problems Active Problems: All Active Problems Osteoarthritis of left knee (Acute) Left knee pain (Acute) Past Medical History Medical History Family history of colon cancer in mother Spinal stenosis Scoliosis Back pain Varicose vein of leg Depression Osteoarthritis Surgical History Surgical History History of lumpectomy of left breast Hx of varicose vein ligation H/O colonoscopy History of total right knee replacement Social History Social History Are you a primary child care lead teacher to a significant other at home: Yes (son w/Down's Syndrome) Do you presently have visiting nurse or other home services: No Patient Tobacco Use Status: Never used Tobacco Use of substances other than those prescribed or required for medical reasons: No Have you been hit, kicked, punched, or otherwise hurt by someone within the past year? If so, by whom?: No Spiritual Healthcare Practices: no Islam Healthcare Practices: no Cultural Healthcare Practices: no Are you DNR?: Yes Advance Directives on File: No FDLMP: n/a Poor oral hygiene: No (dental implants) Current occupational status: retired Current occupation: rt handed Meds Allergies Allergy/AdvReac Type Severity Reaction Status Date / Time bee pollen (bee stings) Allergy Intermediate Swelling Verified 12/29/24 06:27 for several weeks Home Medications ?Medication ?Instructions ?Recorded ?Confirmed ?Last Taken ?Type bupropion HCl 300 mg 24 hr tablet, 300 mg PO QAM 04/01/24 12/25/24 12/28/24 History extended release meloxicam 15 mg tablet 15 mg PO DAILY PRN knee pain 04/01/24 12/25/24 12/15/24 History Bifidobacterium longum 10 million 10,000,000 cell PO DAILY 12/01/24 12/25/24 12/22/24 History cell capsule (Align (B.longum)) biotin 10,000 mcg disintegrating 10,000 mcg PO DAILY 12/01/24 12/25/24 12/28/24 History tablet calcium carbonate (Calcium 500) 1,000 mg PO BEDTIME 12/01/24 12/25/24 12/22/24 History cholecalciferol (vitamin D3) 10 10 mcg PO BEDTIME 12/01/24 12/25/24 12/22/24 History mcg (400 unit) tablet (Vitamin D3) docusate sodium 100 mg capsule 100 mg PO QAM 12/01/24 12/25/24 12/28/24 History (Colace) multivitamin-ferrous 1 tab PO QAM 12/01/24 12/25/24 12/22/24 History fumarate-folic acid 18 mg-400 mcg tablet (Centrum Women) polyethylene glycol 3350 17 17 g PO 2XW 12/01/24 12/25/24 12/26/24 History gram/dose oral powder (Miralax) vibegron 75 mg tablet (Gemtesa) 75 mg PO QAM 12/01/24 12/25/24 12/29/24 05:30 History Exam Pertinent Lab Results Pertinent Lab Results: Lab Results 12/01/24 12/01/24 12/25/24 Range/Units 12:30 13:13 09:18 WBC 4.3 L (4.8-10.8) X10*3/uL RBC 4.22 (4.20-5.50) X10*6/uL Hgb 13.7 (12.0-16.0) g/dl Hct 41.2 (37.0-47.0) % MCV 97.6 (80.0-98.0) fL MCH 32.5 (27.0-33.0) pg MCHC 33.3 (31.0-35.0) g/dl RDW 12.7 (11.0-16.0) % Plt Count 216 (160-400) X10*3/uL MPV 9.9 (9.4-12.3) fL Absolute Nucleated RBC 0.000 (0.0-0.012) X10*3/uL Nucleated RBC % (auto) 0.0 (0.0-0.2) /100WBC Sodium 143 (135-145) mmol/L Potassium 4.6 (3.3-5.1) mmol/L Chloride 107 (96-108) mmol/L Carbon Dioxide 28 (22-29) mmol/L Anion Gap 13 (12-20) BUN 19 H (9-16) mg/dL Creatinine 0.72 (0.5-1.4) mg/dL Estim Creat Clear Calc 57.3 Estimated GFR > 60 Random Glucose 82 (60-115) mg/dL Estimat Average Glucose mg/dL Hemoglobin A1c % (<6.0) % Calcium 9.6 (8.4-10.2) mg/dL Nasal Screen MRSA (PCR) NEGATIVE (Negative) Nasal S. aureus Screen NEGATIVE (Negative) Nasal MRSA/S.aureus Interp SEE NOTE Blood Type A Positive Antibody Screen NEGATIVE 12/25/24 Range/Units 09:26 WBC 3.5 L (4.8-10.8) X10*3/uL RBC 4.25 (4.20-5.50) X10*6/uL Hgb 13.6 (12.0-16.0) g/dl Hct 42.1 (37.0-47.0) % MCV 99.1 H (80.0-98.0) fL MCH 32.0 (27.0-33.0) pg MCHC 32.3 (31.0-35.0) g/dl RDW 12.5 (11.0-16.0) % Plt Count 199 (160-400) X10*3/uL MPV 10.0 (9.4-12.3) fL Absolute Nucleated RBC 0.000 (0.0-0.012) X10*3/uL Nucleated RBC % (auto) 0.0 (0.0-0.2) /100WBC Sodium 144 (135-145) mmol/L Potassium 4.4 (3.3-5.1) mmol/L Chloride 108 (96-108) mmol/L Carbon Dioxide 30 H (22-29) mmol/L Anion Gap 10 L (12-20) BUN 23 H (9-16) mg/dL Creatinine 0.71 (0.5-1.4) mg/dL Estim Creat Clear Calc 57.3 Estimated GFR > 60 Random Glucose 96 (60-115) mg/dL Estimat Average Glucose 114 mg/dL Hemoglobin A1c % 5.6 (<6.0) % Calcium 9.8 (8.4-10.2) mg/dL Nasal Screen MRSA (PCR) (Negative) Nasal S. aureus Screen (Negative) Nasal MRSA/S.aureus Interp Blood Type Antibody Screen Narrative Narrative: EKG 11/2024 Vent. Rate : 67 BPM Atrial Rate : 67 BPM P-R Int : 154 ms QRS Dur : 78 ms QT Int : 372 ms P-R-T Axes : 60 32 48 degrees QTcB Int : 393 ms Normal sinus rhythm Septal infarct , age undetermined Abnormal ECG No previous ECGs available Airway Mallampati Class: II TM Dist: >3cm Loose/Missing/Broken Teeth: No (Implants on side molars x 3) Heart: RRR Lungs: CTAB Assessment and Plan Assessment Anesthesia Assessment: Anesthesia Plan Discussed and PAT Visit Documented by User: Jazzy Cleveland MD 12/29/24 08:32 [facility] Past Medical History Medical History Family history of colon cancer in mother Spinal stenosis Scoliosis Back pain Varicose vein of leg Depression Osteoarthritis Family History Family history of problems with anesthesia: No Surgical History Surgical History History of lumpectomy of left breast Hx of varicose vein ligation H/O colonoscopy History of total right knee replacement History of Problems with Anesthesia: No Social History Social History Are you a primary child care lead teacher to a significant other at home: Yes (son w/Down's Syndrome) Do you presently have visiting nurse or other home services: No Patient Tobacco Use Status: Never used Tobacco Use of substances other than those prescribed or required for medical reasons: No Have you been hit, kicked, punched, or otherwise hurt by someone within the past year? If so, by whom?: No Spiritual Healthcare Practices: no Islam Healthcare Practices: no Cultural Healthcare Practices: no Are you DNR?: Yes Advance Directives on File: No FDLMP: n/a Poor oral hygiene: No (dental implants) Current occupational status: retired Current occupation: rt handed Meds Allergies Allergy/AdvReac Type Severity Reaction Status Date / Time bee pollen (bee stings) Allergy Intermediate Swelling Verified 12/29/24 06:27 for several weeks Home Medications ?Medication ?Instructions ?Recorded ?Confirmed ?Last Taken ?Type bupropion HCl 300 mg 24 hr tablet, 300 mg PO QAM 04/01/24 12/25/24 12/28/24 History extended release meloxicam 15 mg tablet 15 mg PO DAILY PRN knee pain 04/01/24 12/25/24 12/15/24 History Bifidobacterium longum 10 million 10,000,000 cell PO DAILY 12/01/24 12/25/24 12/22/24 History cell capsule (Align (B.longum)) biotin 10,000 mcg disintegrating 10,000 mcg PO DAILY 12/01/24 12/25/24 12/28/24 History tablet calcium carbonate (Calcium 500) 1,000 mg PO BEDTIME 12/01/24 12/25/24 12/22/24 History cholecalciferol (vitamin D3) 10 10 mcg PO BEDTIME 12/01/24 12/25/24 12/22/24 History mcg (400 unit) tablet (Vitamin D3) docusate sodium 100 mg capsule 100 mg PO QAM 12/01/24 12/25/24 12/28/24 History (Colace) multivitamin-ferrous 1 tab PO QAM 12/01/24 12/25/24 12/22/24 History fumarate-folic acid 18 mg-400 mcg tablet (Centrum Women) polyethylene glycol 3350 17 17 g PO 2XW 12/01/24 12/25/24 12/26/24 History gram/dose oral powder (Miralax) vibegron 75 mg tablet (Gemtesa) 75 mg PO QAM 12/01/24 12/25/24 12/29/24 05:30 History Exam Airway Neck ROM: Limited Assessment and Plan Assessment Anesthesia Assessment: Chart Reviewed Final Anesthetic Review Family History of Problems with Anesthesia: No History of Problems with Anesthesia: No NPO: Yes ASA Class: III Final Preanesthetic Review: No Changes in Pt Med Stat, Meds/Allgs Chart Reviewed, Consent Obtained/Reviewed and Anes Risks/Benef Reviewed Patient Risk: Intermediate Procedure Risk: Intermediate Anesthetic Plan Anesthetic Plan: MAC:, Spinal, Neuraxial Block:, Regional Block and Agree w/ Assess. and Plan Disposition: Standard PACU
[2024-12-01 13:56] LABS: Hematocrit 41.2 % (37.0-47.0); Hemoglobin 13.7 g/dl (12.0-16.0); Mean Corpuscular HGB Conc 33.3 g/dl (31.0-35.0); Mean Corpuscular Hemoglobin 32.5 pg (27.0-33.0); Mean Corpuscular Volume 97.6 fL (80.0-98.0); NRBC Abs Auto 0.000 X10*3/uL (0.0-0.012); NRBC Pct Auto 0.0 /100WBC (0.0-0.2); Platelet Count 216 X10*3/uL (160-400); Red Blood Count 4.22 X10*6/uL (4.20-5.50); White Blood Count 4.3 X10*3/uL (4.8-10.8)
[2024-12-01 14:36] LABS: Anion Gap 13 (12-20); Blood Urea Nitrogen 19 mg/dL (9-16); Calcium 9.6 mg/dL (8.4-10.2); Carbon Dioxide 28 mmol/L (22-29); Chloride 107 mmol/L (96-108); Creatinine Clr Calc Pharmacy 57.3; Estimated Glomerular Filt Rate > 60; Potassium 4.6 mmol/L (3.3-5.1); Sodium 143 mmol/L (135-145)
[2024-12-01 14:53] LABS: MRSA Nasal PCR NEGATIVE (Negative); SA Nasal PCR NEGATIVE (Negative)
[2024-12-25 10:29] LABS: Hematocrit 42.1 % (37.0-47.0); Hemoglobin 13.6 g/dl (12.0-16.0); Mean Corpuscular HGB Conc 32.3 g/dl (31.0-35.0); Mean Corpuscular Hemoglobin 32.0 pg (27.0-33.0); Mean Corpuscular Volume 99.1 fL (80.0-98.0); NRBC Abs Auto 0.000 X10*3/uL (0.0-0.012); NRBC Pct Auto 0.0 /100WBC (0.0-0.2); Platelet Count 199 X10*3/uL (160-400); Red Blood Count 4.25 X10*6/uL (4.20-5.50); White Blood Count 3.5 X10*3/uL (4.8-10.8)
[2024-12-25 10:35] LABS: Hemoglobin A1C 131.5300 umol/L; Total Hemoglobin (HGBA1C) 3495.3242 umol/L
[2024-12-25 11:04] LABS: Anion Gap 10 (12-20); Blood Urea Nitrogen 23 mg/dL (9-16); Calcium 9.8 mg/dL (8.4-10.2); Carbon Dioxide 30 mmol/L (22-29); Chloride 108 mmol/L (96-108); Creatinine Clr Calc Pharmacy 57.3; Estimated Glomerular Filt Rate > 60; Potassium 4.4 mmol/L (3.3-5.1); Sodium 144 mmol/L (135-145)
[2024-12-29] VITALS (13 sets, daily range): BP systolic 94–139; BP diastolic 59–80; PULSE 57–92; RESP 11–19; TEMP 36–36.6; O2SAT 97–100; BMI 23.8
[2024-12-29] MEDS: Lactated Ringers 1,000 ML 100 ML IVCONT ×2 (07:14→12:57)
--- NOTE | 2024-12-29 09:46 | P.F2F_ITS ---
Service Date Service Date: 12/29/24 Encounter Date of encounter: 12/30/24 Reasons for Services Signs and symptoms assessed: s/p LTKA Pt. is considered homebound due to recent surgery. Unable to drive, poor balance, poor gait mechanics. Reason for physical therapy: home safety and mobility, therapeutic exercises, restore joint function, gait/transfer training and ADL training Homebound: Leaving the home is medically contraindicated at this time without the asist of a device and/or another person due th the listed conditions above and below. Reason homebound: unsteady gait / fall risk, leg weakness, pain with ambulation, pain with transfers, poor balance / fall risk and unable to drive Certification: Based on the above findings, I certify that this patient is confined to the home and needs intermittent custodial care, physical therapy and/or speech th erapy, or continues to need occupational therapy. The patient is under my care, and I have initiated the establishment of the plan of care. The patient will be followed by a physician who will periodically review the plan of care. Time Spent With Patient Time: Total time managing care of this patient today ____ minutes.
--- NOTE | 2024-12-29 09:47 | P.DS_ITS ---
DS: Providers Provider Date of Service: 12/30/24 Date of discharge: 12/30/24 Primary care physician: Liborio Coello MD DS: Summary Hospital Course Hospital Course: The patient underwent a successful left total knee arthroplasty, they were transferred to PACU and then to the floor to recover. During their stay, their vitals were stable, afebrile at 98.6. Labs were unremarkable, H/H 10.5/30.6. POD0 they were started on Aspirin 325mg po bid for DVT ppx, they also received Physical Therapy services. Prior to discharge, their dressing was clean dry and intact and the plan was to be discharged home with VNA services. Physical Therapy for ROM 0-120, quad strength, gait training. -Bandage/Incision Site Care: -Ice 20mins at a time -Make sure you use a towel or cloth on your skin as a barrier -DO NOT remove the bandage -Keep Bandage clean, dry and intact -Do not get the bandage wet: -No tub bath, pools or hot tubs -If there are any concerns regarding the bandage please call orthopedics: [phone] -Knee Precautions: -Refrain from putting pillows under the knee -Keep leg straight while resting the knee -Avoid low chairs and deep couches -Use supportive shoes with nonslip soles -Physical Therapy: -Patient is WBAT with the use of a walker -Range of Motion: 0-120 degrees. -Strengthening: Quadriceps and hip muscles -Walking: Gait training and gradually increasing distance with walker -Ankle pumps and incentive spirometry to limit the risk of blood clot -Diet: -Resume regular diet as tolerated. -Drink plenty of fluids and eat a high-fiber foods to avoid constipation -This is a common side effect of pain medication) -Take stool softeners as prescribed -Blood Clot Prevention: -Take the prescribed blood thinner as directed for 6 weeks -Perform ankle pumps and walk frequently with the walker and assistance if needed -Report calf pain, swelling, or shortness of breath immediately Time Attestation Discharge Coordination Time (in mins): 30 Quality: Safe Use of Opioids Does Pt have an Active Cancer Diagnosis on the Problem List?: No Quality: Stroke Does the patient have a stroke diagnosis?: No Physical Exam Vital Signs: Vital Signs: Last Vital Signs Temp 97.9 F 12/29/24 06:51 Pulse 70 12/29/24 06:51 Resp 15 12/29/24 06:51 BP 139/80 12/29/24 06:51 Pulse Ox 99 12/29/24 06:51 O2 Del Method Room Air 12/29/24 06:51 BMI result Body Mass Index 25.5 Const: General: cooperative, healthy appearing and no acute distress Resp: Effort & Inspection: normal respiratory effort and able to speak in complete sentences Extrem: Other: left knee dressing is c/d/i. Able to dorsi/plantar flex. Calf is supple and nontender. Sensation intact. Pedal pulse intact. Psych: Appearance: grossly normal Mental Status: mental status grossly normal Attitude: cooperative DS: Data Data Completed and Pending Pending studies at discharge: Pending at discharge 12/29/24 08:39 Surgical [PTH] Routine Discharge Plan Discharge Patient Disposition: Home Health Service Referrals: Ellie Varner PA-C [Physician Clinical Support Nurse, Orthopedics] - 01/15/25 2:00 pm Discharge Medications: New methocarbamol 750 mg Tablet 750 mg PO TID 7 Days Qty: 21 0RF celecoxib 200 mg Capsule 200 mg PO BID 30 Days Qty: 60 0RF acetaminophen 325 mg Tablet 650 mg PO Q6H PRN (Reason: Pain, Mild 1-3,Fever,Headache) 30 Days Qty: 240 0RF aspirin 325 mg Tablet 325 mg PO BID 42 Days Qty: 84 0RF docusate sodium 100 mg Capsule 100 mg PO BID 30 Days Qty: 60 0RF gabapentin 100 mg Capsule 100 mg PO BEDTIME 7 Days Qty: 7 0RF oxycodone 5 mg Tablet 5 mg PO Q4H PRN (Reason: Pain, Moderate(Pain Scale 4-6)) 7 Days Qty: 42 0RF Rx Instructions: Partial Fill upon patient request. Continued (DME) walker Misc See Rx Instructions .MEDSUPPLY Qty: 1 0RF Rx Instructions: Folding front wheeled walker Gemtesa 75 mg tablet 75 mg PO QAM calcium carbonate [Calcium 500] 500 mg calcium (1,250 mg) Tablet,Chewable 1,000 mg PO BEDTIME polyethylene glycol 3350 [Miralax] 17 gram/dose Powder 17 g PO 2XW cholecalciferol (vitamin D3) [Vitamin D3] 10 mcg (400 unit) Tablet 10 mcg PO BEDTIME Centrum Women 18-400 mg-mcg Tablet 1 tab PO QAM biotin 10,000 mcg Tablet,Disintegrating 10,000 mcg PO DAILY Align (B.longum) 10 million cell Capsule 10,000,000 cell PO DAILY bupropion HCl 300 mg tablet extended release 24 hr 300 mg PO QAM Discontinued docusate sodium [Colace] 100 mg Capsule 100 mg PO QAM meloxicam 15 mg tablet 15 mg PO DAILY PRN (Reason: knee pain) Discharge Orders: Discharge Order (Routine); Ordered 12/30/24 Ordered By: Ellie Varner Diet: Advance to usual diet Activity on Discharge: Use cane or walker Activity Restrictions/Additional Instructions: Physical Therapy for ROM 0-120, quad strength, gait training. -Bandage/Incision Site Care: -Ice 20mins at a time -Make sure you use a towel or cloth on your skin as a barrier -DO NOT remove the bandage -Keep Bandage clean, dry and intact -Do not get the bandage wet: -No tub bath, pools or hot tubs -If there are any concerns regarding the bandage please call orthopedics: [phone] -Knee Precautions: -Refrain from putting pillows under the knee -Keep leg straight while resting the knee -Avoid low chairs and deep couches -Use supportive shoes with nonslip soles -Physical Therapy: -Patient is WBAT with the use of a walker -Range of Motion: 0-120 degrees. -Strengthening: Quadriceps and hip muscles -Walking: Gait training and gradually increasing distance with walker -Ankle pumps and incentive spirometry to limit the risk of blood clot -Diet: -Resume regular diet as tolerated. -Drink plenty of fluids and eat a high-fiber foods to avoid constipation -This is a common side effect of pain medication) -Take stool softeners as prescribed -Blood Clot Prevention: -Take the prescribed blood thinner (Aspirin) as directed for 6 weeks -Perform ankle pumps and walk frequently with the walker and assistance if needed -Report calf pain, swelling, or shortness of breath immediately Print Language: Togolese
--- NOTE | 2024-12-29 10:40 | PM.OP ---
Brief Operative Note Date of Service: 12/29/24 Pre-op diagnosis: Left knee degenerative joint disease Post-op diagnosis: same Procedure: Left total knee arthroplasty Implants: [place] Triathlon cemented posterior stabilized total knee arthroplasty with a femoral component size 4 left, tibial component size 4, polyethylene liner size 4 with 9 mm of thickness, a symmetric patellar component size 27 with 8 mm of thickness Surgeon: Michelet Connors MD Anesthesia: regional and spinal Was an Organisational Psychologist used for this Procedure?: No Organisational Psychologist: Ellie Varner Estimated blood loss (mL): 200 Pathology: other (Bony fragments from the left femur, tibia and patella) Condition: stable Disposition: PACU
--- NOTE | 2024-12-29 10:41 | P.OP_ITS ---
Operative Note Operative Note Date of Service: 12/29/24 Narrative: After the patient was identified as Lucinda Patel and her left knee was initialed by myself the patient was brought to the holding area where a left leg nerve block was performed by the anesthesiologist in routine fashion. The patient was then brought to the operating room where conscious sedation and spinal anesthesia were performed by the anesthesiologist in routine fashion. The patient was given 2 g of IV Ancef preoperatively for infection prophylaxis. The patient's left lower extremity was prepped and draped in sterile fashion. A formal time-out was completed. The patient's left knee was placed onto a small bump to produce 30? of knee flexion during exposure. A #10 scalpel blade was used to make a midline incision extending 1 handbreadth proximal and distal to the patella. A second #10 scalpel blade was used to dissect the subcutaneous tissues down to the extensor mechanism. The subcutaneous flaps were maintained as thick as possible. A medial parapatellar arthrotomy was then performed using a #10 scalpel blade. The arthrotomy was begun just medial to the patellar tendon. The arthrotomy was continued 1 cm medial to the patella and then 5 mm into the medial aspect of the quadriceps tendon. The infrapatellar fat pad was partially excised to help with exposure. The soft tissue retinaculum was raised one-half of the way around the medial aspect of the proximal tibia. The patella was everted and the knee was flexed to 90?. There was no injury to the patellar tendon or its insertion onto the tibial tubercle. A drill bit was introduced into the distal aspect of the femur with a starting point 1 cm anterior to the origin of the posterior cruciate ligament. The intramedullary alignment jayne was put into place. The distal alignment guide was set for a 5 degree valgus cut. The distal cutting block was put into place and we held it with 4 pins. The intramedullary alignment jayne was removed. Soft tissues were retracted in the distal femoral cut was made using a sagittal saw. The distal aspect of the femur measured to be a size 4 left component. Two drill holes were placed into the distal aspect of the femur marking 3? of external rotation. The distal cutting block was impacted into place and we held it with 2 pins. Soft tissues were retracted and the 4 distal femoral cuts were made using a sagittal saw. Final notching and drilling of the distal aspect of the femur were performed in routine fashion. The trial femoral component was impacted into place. The knee was taken through a full range of motion. The patella tracked well. The patella was everted and the knee was flexed to 90?. The trial component was removed and our attention was directed to the proximal tibia. The medial and lateral menisci were removed using a #10 scalpel blade. A small rim of the medial meniscus was left intact to help prevent injury to the medial collateral ligament. A drill bit was then introduced into the proximal tibia with a starting point midway from medial to lateral and one-third of the way posteriorly. The intramedullary alignment jayne was put into place. The proximal tibial cutting guide was placed over the alignment jayne in line with the 2nd toe. The guide was held in place using 3 pins. The intramedullary alignment jayne was removed. Soft tissues were retracted and the proximal tibial cut was made using a sagittal saw. The proximal tibia measured to be a size 4 component. The tibial tray was put into place with a 9 mm liner. The femoral component was impacted into place. The knee was taken through a full range of motion. There was full flexion and full extension. There was no instability with varus or valgus stress testing with the knee in flexion or extension. The patella tracked well with no medially directed force. The rotation of the tibial tray was marked using electrocautery with the knee in extension. The patella was everted and the knee was flexed to 90?. All trial components were removed. The tibial tray was placed onto the proximal tibia in line with the electrocautery prabhakar. The tray was held in place using 3 pins. Final broaching of the proximal tibia was performed in routine fashion. The trial liner and trial femoral component were put into place. The knee was brought into extension and our attention was directed to the patella. The patella measured 25 mm in thickness. The patellar resection guide was set for a 10 mm resection. Soft tissues were retracted and the patella cut was made using a sagittal saw. The remaining patella measured 15 mm in thickness. The undersurface of the patella was florentino ured to be a size 27 symmetric component. Three drill holes were placed into the undersurface of the patella in routine fashion. The trial component was put into place. The knee was taken through a full range of motion. The patella tracked well. The patella was everted and the knee was flexed to 90?. All trial components were removed. The knee was once again brought into extension and placed onto a small bump. The knee joint was irrigated with copious amounts of normal saline solution via pulse lavage while the cement was mixed. The patella was everted and the knee was flexed to 90?. A small amount of cement was placed along the posterior aspects of the tibial and femoral components. Cement was then pressurized into the proximal tibia. The tibial component was impacted into place. Any excess cement was removed. The polyethylene liner was then impacted into place. Cement was then pressurized into the distal aspect of the femur. A small amount of cement was placed into the intramedullary canal to help reduce bleeding. The femoral component was impacted into place. Any excess cement was removed. The knee was then brought into extension. Cement was pressurized into the undersurface of the patella. The patellar component was put into place and was held with a patella clamp. Any excess cement was removed. Once the cement had hardened the patellar clamp was removed. The knee was taken through a full range of motion. There was full flexion and extension. There was no instability with varus or valgus stress testing with the knee in flexion or extension. The patella tracked well with no medially directed force. The knee joint was irrigated with copious amounts of normal saline solution via pulse lavage. Any significant bleeding vessels were coagulated. The patient's left knee was placed onto a small bump. The arthrotomy was closed with #2 Ethibond [id number] interrupted suture as well as #1 Vicryl [id number] interrupted suture. The wound was once again irrigated. The subcutaneous tissues were closed with 0 Vicryl and 2-0 Vicryl interrupted sutures. The skin was closed with skin rhiannon. Dry sterile dressing and Fernando bandages were placed over the patient's left knee. The patient was awake and alert. The patient was transferred to the recovery room in stable condition. Justification for PA Hoof And Shoe Inspector: The complexity of this total knee arthroplasty, involving significant bony deformity and soft tissue releases, necessitates the assistance of a qualified human resources office assistant for optimal surgical exposure, hemostasis and efficient execution of the procedure.
--- NOTE | 2024-12-29 12:56 | PHA.MEDREC ---
Pharmacy Consult ? Medication Reconciliation Pharmacy has completed the medication reconciliation. Reviewed med rec done by nursing, matches recent office visit.
[2024-12-29] MEDS: oxyCODONE HCl ER 10 MG TAB.ER.12H PO ×2 (12:58→20:01)
[2024-12-29] MEDS: buPROPion HCl XL 300 MG TAB.ER.24H PO (13:00)
[2024-12-29] MEDS: oxyCODONE HCl Immed Release 5 MG TABLET PO (15:49)
[2024-12-29] MEDS: 0.9 % Sodium Chloride Flush 3 ML SYRINGE IVFLUSH ×2 (15:50→20:02)
[2024-12-29] MEDS: Cholecalciferol (Vitamin D3) 10 MCG TABLET PO (20:03)
[2024-12-30] MEDS: Lactated Ringers 1,000 ML 100 ML IVCONT ×2 (03:41→08:14)
[2024-12-30 03:44] VITALS: BP 118/68; PULSE 72; RESP 18; TEMP 36.9; O2SAT 95
[2024-12-30] MEDS: oxyCODONE HCl Immed Release 5 MG TABLET PO ×2 (05:37→11:01)
[2024-12-30 05:58] LABS: MANUAL DIFF FLAG NO
[2024-12-30 06:03] LABS: Hematocrit 30.8 % (37.0-47.0); Hemoglobin 10.4 g/dl (12.0-16.0); Imm Gran Abs Auto 0.01 X10*3/uL (0.00-0.03); Imm Gran Pct Auto 0.2 % (0.0-0.4); Lymphocytes Absolute Auto 1.1 X10*3/uL (1.2-4.9); Mean Corpuscular HGB Conc 33.8 g/dl (31.0-35.0); Mean Corpuscular Hemoglobin 32.5 pg (27.0-33.0); Mean Corpuscular Volume 96.3 fL (80.0-98.0); NRBC Abs Auto 0.000 X10*3/uL (0.0-0.012); NRBC Pct Auto 0.0 /100WBC (0.0-0.2); Platelet Count 144 X10*3/uL (160-400); Red Blood Count 3.20 X10*6/uL (4.20-5.50); White Blood Count 6.3 X10*3/uL (4.8-10.8)
[2024-12-30 06:21] LABS: Anion Gap 10 (12-20); Blood Urea Nitrogen 17 mg/dL (9-16); Calcium 8.4 mg/dL (8.4-10.2); Carbon Dioxide 26 mmol/L (22-29); Chloride 107 mmol/L (96-108); Creatinine Clr Calc Pharmacy 60.6; Estimated Glomerular Filt Rate > 60; Potassium 3.6 mmol/L (3.3-5.1); Sodium 139 mmol/L (135-145)
--- NOTE | 2024-12-30 06:43 | P.CONHOSP_ITS ---
History of Present Illness Data of Consult Service Date: 12/30/24 Requesting physician: Michelet Connors Primary Care Provider: Liborio Coello MD [facility] Reason for consult: medical management Patient is a 74-year-old female with a past medical history significant for depression, osteoarthritis, spinal stenosis and scoliosis, now s/p left TKA yesterday. The patient has no complaints currently just some mild left knee pain. She denies any fever, chills, nausea, vomiting, abdominal pain, numbness or tingling. She has been able to urinate without issues. Her nurse reports that she has been ambulating very well. Medical history and medications were reviewed. Review of Systems 2 Constitutional: Constitutional: Denies body ache(s), Denies chills, Denies fatigue, Denies fever(s) and Denies headache(s) Eyes: Eyes: Denies change in vision ENT: Denies headache(s), Denies nasal congestion and Denies sore throat Cardiovascular: Cardiovascular: Denies chest pain, Denies rapid heart rate, Denies leg edema, Denies lightheadedness and Denies dyspnea Respiratory: Respiratory: Denies chest congestion, Denies cough, Denies dyspnea and Denies wheezing Gastrointestinal: Gastrointestinal: Denies abdominal pain, Denies nausea and Denies vomiting Genitourinary: Genitourinary: Denies dysuria and Denies urinary urgency Musculoskeletal: Musculoskeletal: Denies myalgias Integumentary/Breasts: Skin/Breast: Denies rash Neurologic: Denies confusion and Denies headache(s) Psychiatric: Psychiatric: Denies confusion Endocrine: Endocrine: Denies fatigue Hematologic/Lymphatic: Hematologic/Lymphatic: Denies easy bleeding and Denies easy bruising Allergic/Immunologic: Allergic/Immunologic: Denies wheezing [facility] Medical History Family history of colon cancer in mother Spinal stenosis Scoliosis Back pain Varicose vein of leg Depression Osteoarthritis Functional capacity: independent ambulation Surgical History History of lumpectomy of left breast Hx of varicose vein ligation H/O colonoscopy History of total right knee replacement Social History Household Members: Family Housing: House Are you a primary child care cook to a significant other at home: Yes (son w/Down's Syndrome) Do you presently have visiting nurse or other home services: No Patient Tobacco Use Status: Never used Tobacco Current occupational status: retired Current occupation: rt handed Narrative: No smoking, occasional alcohol Meds Allergies Allergy/AdvReac Type Severity Reaction Status Date / Time bee pollen (bee stings) Allergy Intermediate Swelling Verified 12/29/24 06:27 for several weeks Active Medications: Current Medications Acetaminophen (Acetaminophen 325 Mg Tablet) 650 mg PO Q6H PRN PRN Reason: Pain, Mild 1-3,fever,headache Last Admin: 12/29/24 18:23 Dose: 650 mg Aspirin (Aspirin 325 Mg Tablet) 325 mg PO BID [facility] Last Admin: 12/29/24 20:01 Dose: 325 mg Bupropion HCl (Bupropion Hcl Xl 300 Mg Tab.Er.24h) 300 mg PO DAILY [facility] Last Admin: 12/29/24 13:00 Dose: 300 mg Calcium Carbonate (Calcium Carbonate 750 Mg Tab.Chew) 750 mg PO BEDTIME [facility] Last Admin: 12/29/24 20:09 Dose: Not Given Calcium Carbonate (Calcium Carbonate 750 Mg Tab.Chew) 750 mg PO Q4H PRN PRN Reason: Heartburn Celecoxib (Celecoxib 200 Mg Capsule) 200 mg PO BID [facility] Last Admin: 12/29/24 20:01 Dose: 200 mg Docusate Sodium (Docusate Sodium 100 Mg Capsule) 100 mg PO BID [facility] Last Admin: 12/29/24 20:01 Dose: 100 mg Gabapentin (Gabapentin 100 Mg Capsule) 100 mg PO BEDTIME [facility] Last Admin: 12/29/24 20:01 Dose: 100 mg Hydromorphone HCl (Hydromorphone Hcl 0.5 Mg/0.5 Ml Syringe) 0.25 mg IVPUSH Q4H PRN; Protocol PRN Reason: Pain, Severe (Pain Scale 7-10) Lactated Ringer's (Lr) 1,000 mls @ 100 mls/hr IVCONT .Q10H [facility] Last Admin: 12/30/24 03:41 Dose: 100 mls/hr Lactated Ringer's (Lr) 1,000 mls @ 100 mls/hr IVCONT .Q10H [facility] Last Infusion: 12/30/24 03:43 Dose: Infused Melatonin (Melatonin 3 Mg Tablet) 6 mg PO BEDTIME PRN PRN Reason: Insomnia Last Admin: 12/29/24 20:01 Dose: 6 mg Methocarbamol (Methocarbamol 750 Mg Tablet) 750 mg PO TID [facility] Last Admin: 12/29/24 20:02 Dose: 750 mg Naloxone HCl (Naloxone Hcl 0.4 Mg/Ml Vial) 0.04 mg IVPUSH Q5M PRN PRN Reason: Excessive sedation or RR < 8 Non-Formulary Medication (Vibegron [Gemtesa]) 75 mg PO QAM [facility] Oxycodone HCl (Oxycodone Hcl Immed Release 5 Mg Tablet) 5 mg PO Q4H PRN PRN Reason: Pain, Moderate(Pain Scale 4-6) Last Admin: 12/30/24 05:37 Dose: 5 mg Oxycodone HCl (Oxycodone Hcl Er 10 Mg Tab.Er.12h) 10 mg PO BID [facility] Last Admin: 12/29/24 20:01 Dose: 10 mg Polyethylene Glycol (Polyethylene Glycol 3350 17 Gm Powd.Pack) 17 gm PO MoTh [facility] Last Admin: 12/29/24 15:23 Dose: 17 gm Sodium Chloride (0.9 % Sodium Chloride Flush 3 Ml Syringe) 3 ml IVFLUSH QSHIFT [facility] Last Admin: 12/29/24 20:02 Dose: 3 ml Vitamin D (Cholecalciferol (Vitamin D3) 10 Mcg Tablet) 10 mcg PO BEDTIME [facility] Last Admin: 12/29/24 20:03 Dose: 10 mcg Home Medications ?Medication ?Instructions ?Recorded ?Confirmed ?Last Taken ?Type bupropion HCl 300 mg 24 hr tablet, 300 mg PO QAM 04/0112/25/24 12/28/24 History extended release meloxicam 15 mg tablet 15 mg PO DAILY PRN knee pain 04/01/24 12/25/24 12/15/24 History Bifidobacterium longum 10 million 10,000,000 cell PO D AILY 12/01/24 12/25/24 12/22/24 History cell capsule (Align (B.longum)) biotin 10,000 mcg disintegrating 10,000 mcg PO DAILY 0 12/01/24 12/25/24 12/28/24 History tablet calcium carbonate (Calcium 500) 1,000 mg PO BEDTIME 12/25/2412/22/25 History cholecalciferol (vitamin D3) 10 10 mcg PO BEDTIME 11/1712/25/24 12/22/24 History mcg (400 unit) tablet (Vitamin D3) docusate sodium 100 mg capsule 100 mg PO QAM 12/01/24 12/25/24 12/28/24 History (Colace) multivitamin-ferrous 1 tab PO QAM 12/01/2412/22/24 History fumarate-folic acid 18 mg-400 mcg tablet (Centrum Women) polyethylene glycol 3350 17 17 g PO 2XW 12/01/2412/2512/26/24 History gram/dose oral powder (Miralax) vibegron 75 mg tablet (Gemtesa) 75 mg PO QAM 12/01/24 12/25/24 12/29/24 05:30 History Physical Exam 2 Vital Signs and Narrative: Vital Signs: Last Vital Signs Temp 98.4 F 12/30/24 03:44 Pulse 72 12/30/24 03:44 Resp 18 12/30/24 03:44 BP 118/68 12/30/24 03:44 Pulse Ox 95 12/30/24 03:44 O2 Del Method Room Air 12/30/24 03:44 BMI result Body Mass Index 23.8 General: AOx3, no acute distress Resp: CTA bilaterally CVS: S1, S2, RRR GI: +BS, NT, no distention Skin: Warm, dry Neuro: Cranial nerves II-XII grossly intact bilaterally. Motor grossly intact bilaterally. sensation intact BLE. Extremities: No pitting edema Psych: Appropriate affect Const: General: No confusion Orientation/consciousness: No confusion Neuro: General: No confusion Results Labs 12/30/24 05:21 12/30/24 05:21 Labs: Laboratory Results - last 24 hr 12/30/24 05:21 MCV 96.3 MCH 32.5 MCHC 33.8 RDW 12.4 Plt Count 144 L D MPV 10.2 Immature Gran % (Auto) 0.2 Neut % (Auto) 67.8 Lymph % (Auto) 17.5 L Smith % (Auto) 11.6 H Eos % (Auto) 2.4 Baso % (Auto) 0.5 Lymph # (Auto) 1.1 L Smith # (Auto) 0.7 Eos # (Auto) 0.2 Baso # (Auto) 0.0 Abs Immat Gran (auto) 0.01 Absolute Neuts (auto) 4.3 Absolute Nucleated RBC 0.000 Nucleated RBC % (auto) 0.0 Anion Gap 10 L Estim Creat Clear Calc 60.6 Estimated GFR > 60 Fasting Glucose 140 H Calcium 8.4 D Assessment and Plan (1) Status post total left knee replacement: Status: Acute Plan Patient is a 74-year-old female with a past medical history significant for depression, osteoarthritis, spinal stenosis and scoliosis, now s/p left TKA yesterday. Doing well, no medical concerns. s/p L TKA - POD 1 - plan per ortho depression - bupropion OAB - Gemtesa Thank you for allowing me to participate in the pt's care. Signing off. Please contact the medical team if any questions or concerns.
[2024-12-30 07:49] VITALS: BP 128/74; PULSE 94; RESP 18; TEMP 37; O2SAT 95
[2024-12-30] MEDS: buPROPion HCl XL 300 MG TAB.ER.24H PO (08:11)
[2024-12-30] MEDS: oxyCODONE HCl ER 10 MG TAB.ER.12H PO (08:12)
--- NOTE | 2024-12-30 08:31 | HO.POSTANES ---
Post Anesthesia Evaluation Post Anesthesia Evaluation Date of Service: 12/30/24 Vital Signs: Vital Signs Temp Pulse Resp BP Pulse Ox O2 Del Method 12/30/24 07:49 98.6 F 94 18 128/74 95 Room Air 12/30/24 03:44 98.4 F 72 18 118/68 95 Room Air Anesthesia: Spinal Mental Status: Awake Pain Control: Satisfactory Nausea/Vomiting: None Hydration: Adequate Anesthesia-Related Issues: No Anes. Related Issues
--- NOTE | 2024-12-30 09:20 | MHC.CM.PN ---
S/P L TKA 12/29/24 She lives with her spouse. She is independent with all functional mobility, baseline. DME walker, cane , crutches Ortho NN referred to [facility] for home services. DP Home with [facility] via spouse transport. HCP on file. PCP Liborio Coello
[2024-12-30 14:12] VITALS: BP 114/64; PULSE 83; RESP 18; TEMP 36.9; O2SAT 97
== END 2024-12-30 14:37 | disposition home health service (06) ==
LOC: HO.SSS 09:46 → HO.S3 12:04
PROVIDERS: Nurse Practitioner; Physician Assistant; PCP Internal Medicine; Visit Provider Orthopaedic Surgery
PROC: (CPT 27447; principal; 2024-12-29 07:30)
DX: M17.12 Unilateral primary osteoarthritis, left knee (principal); M25.562 Pain in left knee; M48.00 Spinal stenosis, site unspecified; M41.9 Scoliosis, unspecified; F32.A Depression, unspecified; Z79.899 Other long term (current) drug therapy; Z96.651 Presence of right artificial knee joint
CPT/HCPCS: 27447; 36415; 80048; 83036; 85025; 85027; 86850; 86900; 86901; 87640; 87641; 88305; 88311; 93005; 97110; 97116; 97162; 97530; 97535; A6260; C1776; J0131; J0665; J0690; J1100; J2003; J2004; J2151; J2250; J2405; J2704; J3010; J3374; J7120

== ENCOUNTER → 2024-12-29 06:15 | Outpatient (BNV) | payer MEDICARE, SELFPAY | PROVIDERS: PCP Internal Medicine; Visit Provider Physician Assistant | DX: Z96.652 Presence of left artificial knee joint (principal) | CPT/HCPCS: 99222 ==

== ENCOUNTER → 2024-12-29 06:15 | Outpatient (BNV) | payer MEDICARE, SELFPAY | PROVIDERS: PCP Internal Medicine; Visit Provider Physician Assistant | DX: M25.562 Pain in left knee (principal); Z96.652 Presence of left artificial knee joint | CPT/HCPCS: 27447; 99024; G0180 ==

== ENCOUNTER 2025-01-02 11:11 | Outpatient (AMB) | payer MEDICARE, SELFPAY ==
--- NOTE | 2025-01-02 11:32 | MHC.OFFVIS ---
Intake Visit Reasons: PO - L TKA w/ 12/29/24 (Bandage change) Intake Note: Lucinda is a 74 year old female who presents today for a bandage change status post ?L TKA w/ 12/29/24. Allergies bee pollen (bee stings) Allergy (Intermediate, Verified 01/02/25 11:33) Swelling for several weeks HPI HPI PO - L TKA w/ 12/29/24 (Bandage change): Details: Patient is a 74-year-old female who presents to the office today status post left total knee arthroplasty performed by Dr. Connors on 12/29/2024. She reports that she has had some blood staining on her bandage and is looking for bandage change. She is also concerned with the amount of swelling in the left lower extremity. She has a history of varicose veins in his concerned for possibility of blood clot. [facility] Medical History Family history of colon cancer in mother Spinal stenosis Scoliosis Back pain Varicose vein of leg Depression Osteoarthritis Surgical History History of lumpectomy of left breast Hx of varicose vein ligation H/O colonoscopy History of total right knee replacement Social History Household Members: Family Housing: House Are you a primary adult live in caregiver to a significant other at home: Yes (son w/Down's Syndrome) Do you presently have visiting nurse or other home services: No Patient Tobacco Use Status: Never used Tobacco service: No Current occupational status: retired Current occupation: rt handed Review of Systems Const All systems reviewed & are unremarkable except as noted in HPI and below Physical Exam Const General: cooperative, healthy appearing and no acute distress Resp Effort & Inspection: normal respiratory effort and able to speak in complete sentences Extrem Other: Left knee Aquacel dressing with mild staining. Bandage was removed and incision site is clean dry and intact. Lucrecia intact. No surrounding erythema or drainage. No signs of infection. Calf is supple and nontender. Negative Homans. NVI. Psych Appearance: grossly normal Mental Status: mental status grossly normal Attitude: cooperative Assessment & Plan Assessment & Plan (1) Status post total left knee replacement: Code(s): Z96.652 - Presence of left artificial knee joint Category: Surgical Plan Patient is a 74-year-old female who presents to the office today status post left total knee arthroplasty performed by Dr. Connors on 12/29/2024. She reports that she has had some blood staining on her bandage and is looking for bandage change. She is also concerned with the amount of swelling in the left lower extremity. She has a history of varicose veins in his concerned for possibility of blood clot. While in the office today, the mildly saturated bandage was changed and the incision site was cleansed with a ChloraPrep. A new Aquacel dressing was placed over the area. Out of an abundance of caution I have ordered a stat ultrasound of the left lower extremity to rule out DVT. She will follow up at her normally scheduled follow up appointment, sooner if needed. Orders: Orders US venous duplex [facility] Today Z96.652 - Presence of left artificial knee joint Coding Level of Care Code Global (80944) Diagnoses Status post total left knee replacement Z96.652
== END 2025-01-02 11:33 | disposition home or self-care (01) ==
LOC: HO.HOS 11:11
PROVIDERS: PCP Internal Medicine; Visit Provider Physician Assistant
DX: Z96.652 Presence of left artificial knee joint (principal)
CPT/HCPCS: 99024

== ENCOUNTER → 2025-01-02 11:11 | Outpatient (BNVA) | payer MEDICARE, SELFPAY | PROVIDERS: PCP Internal Medicine; Visit Provider Physician Assistant | DX: Z98.890 Other specified postprocedural states (principal); Z96.652 Presence of left artificial knee joint | CPT/HCPCS: 99212 ==

== ENCOUNTER 2025-01-02 12:40 | Outpatient (REF) | payer MEDICARE, SELFPAY ==
--- NOTE | ~2025-01-02 | US_ITS ---
EXAMINATION: US TRIPLEX LOWER EXTREMITY, LEFT CLINICAL INFORMATION: Left lower extremity swelling and pain status post left total knee replacement 12/29/2024. COMPARISON: None available. TECHNIQUE: Color-flow triplex imaging with spectral analysis and compression Doppler were performed on the left lower extremity. FINDINGS: Respiratory variation, normal compression and augmented flow are noted throughout the left lower extremity. The visualized common femoral vein, superficial femoral vein, profunda femoral vein, popliteal vein and midcalf peroneal and posterior tibial venous segments show no evidence of deep venous thrombosis. There is no Michelle's cyst. There is a patent left medial mid calf varicosity measuring 0.4 cm. There is a reactive appearing left groin lymph node. US/US venous duplex LE LT IMPRESSION: No evidence of deep venous thrombosis involving the left lower extremity. Electronically signed by: Cain Bhakta MD 01/02/2025 02:25 PM EDT
== END 2025-01-02 12:41 | disposition home or self-care (01) ==
LOC: HO.US 12:40
PROVIDERS: PCP Internal Medicine; Visit Provider Physician Assistant
DX: Z96.652 Presence of left artificial knee joint (principal); R60.0 Localized edema
CPT/HCPCS: 93971

== ENCOUNTER → 2025-01-02 14:01 | Outpatient (BNV) | payer MEDICARE, SELFPAY | PROVIDERS: PCP Internal Medicine; Visit Provider Radiology Diagnostic Radiology | DX: R22.42 Localized swelling, mass and lump, left lower limb (principal) | CPT/HCPCS: 93971 ==

== ENCOUNTER 2025-01-15 08:25 | Outpatient (REF) | payer MEDICARE, SELFPAY ==
--- OUTSIDE RECORDS SUMMARY | 2024-01-08 12:07 | XMS_ITS | Encounter Summary ---
Author Organization [facility] Address [address] [place] [address] Care Team Providers Care Suture Polisher Name Role Phone Liborio Ceollo MD Primary Care Provider +1- [phone] Encounter Details Date Type Department Care Team [...] PM EDT Narrative 01/09/2024 8:05 AM EDT [facility] Diagnostic Imaging Department [address] [place] [address] Patient: JUAN PATEL /Age/Sex: 1950 - 73 - F Unit#: [id number] Location/Status: SPDIGEN/REG CLI Mnemonic/Ordering Site: ABDOFLEREC/SPDI Ordering [...] There is evidence of moderate constipation. Code 31992 Dictating Physician: SHUKRI SURESH MD Electronically Signed by: SHUKRI SURESH MD Dic Date/Time: 01/09/24803 Sign date/Time: 01/09/24804 Procedure Note Shukri Suresh MD - 01/22/2024 [facility] Diagnostic Imaging Department [address] [place], [place] [address] Patient: JUAN PATEL /Age/Sex: 1950 - 73 - F Unit#: [id number] Location/Status: SPDIGEN/REG CLI Mnemonic/Ordering Site: [facility] Ordering Physician: ARSLAN DELGADILLO MD [...] pattern. There is evidence ofmoderate constipation. Code 46294 Dictating Physician: SHUKRI SURESH MD Electronically Signed by: SHUKRI SURESH MD Dic Date/Time: 01/09/24803 Sign date/Time: 01/09/24804 Arslan Delgadillo MD IMG XR PROCEDURES Final Result documented in this encounter Visit Diagnoses Diagnosis Constipation, unspecified documented in this encounter Care Teams Suture Polisher Relationship Specialty Start Date End Date Liborio Coello MD [address] [place] [address] PCP - General Internal Medicine 07/02/18 documented as of this encounter
--- NOTE | ~2025-01-15 | XR_ITS ---
EXAMINATION: XR KNEE, LEFT CLINICAL INFORMATION: M25.569 - Pain in unspecified knee COMPARISON: X-ray 04/01/2024 TECHNIQUE: AP bilateral knees one view, 2 views of the left knee. FINDINGS: Left knee: Status post total knee arthroplasty, with expected position and alignment. No acute periprosthetic fracture. There is edema in the soft tissues.. Small effusion. Skin rhiannon anteriorly Right knee: Status post total knee arthroplasty with expected position alignment. No acute periprosthetic fracture or perihardware lucencies seen.. No suspicious bony lesion. XR/XR knee LT 3V IMPRESSION: Left knee: Postsurgical changes status post total knee arthroplasty. No acute periprosthetic fractures. Right knee: Total knee arthroplasty. No radiographic evidence of complications on the single view. Electronically signed by: Ramu Brown MD 01/16/2025 07:17 AM EDT
--- OUTSIDE RECORDS SUMMARY | 2025-01-16 08:48 | XMS_ITS | Clinical Summary ---
Author Organization [facility] Address [address] [facility] [address] [place] [address] Phone Care Team Providers Care Automobile Upholsterer Name Role Phone Liborio Coello MD Primary Care Provider [phone]- [phone] Eamon Mayer MD Unavailable [phone] Arslan Hamlin MD Unavailable Michelet Connors MD Unavailable Karthik Patel DO Unavailable [phone] Allergies Active Allergy Reactions Criticality Noted Date [...] a stool softener as recommended by her sergeant of officers, but she continues to have symptoms. They [...] son moving back to his apartment in [place] and concerns about her 's alcohol use. [...] second opinion I can refer her to [facility] vascular. Assessment & Plan (11/03/2019 12:07 PM EDT): Ankle edema is due to varicose veins. This should not be a significant complicating factor for surgery. Osteopenia of multiple sites 04/11/2018 Overview (09/14/2020): Followed by her nanoelectronics engineer. Treated with Evista until 2020. By patient [...] her diet. She will follow-up with her nanoelectronics engineer to discuss when she is due for another bone density. I told her that I can manage this in the future once her nanoelectronics engineer retires. Primary osteoarthritis of left knee 04/11/2018 Assessment & Plan (12/04/2024 3:50 PM EDT): Labs and EKG done earlier this week at [facility] were reviewed and showed no significant abnormality. [...] her back. Agree with recommendation from her marketing services coordinator to start physical therapy. If this is [...] EDT Telemedicine [facility] [address] [place] [address] Tanja Godfrey FNP Sleep disturbance (Primary Dx) 01/06/[address] [place] [address] Liborio Coello MD Medication Question 01/06/2025 Orders Only [address] [place] [address] ProviderOswaldo MD 12/17/[address] [place] [address] Liborio Coello MD orders (Hearing test) 12/04/2024 3:30 PM EDT Office Visit [address] [place] [address] Liborio Coello MD Primary osteoarthritis of left knee (Primary Dx); Degeneration of intervertebral disc of lumbar region with discogenic back pain; Overactive bladder; Recurrent major depressive disorder in partial remission 12/02/[address] [address] Liborio Coello MD Triage (Covid question) 11/11/[address] [place] [address] Cyndy Sarmiento MA Forms & Paperwork (ATI PT 8/8/25) 11/05/2024 Telephone [facility] [address] [place] [address] Cyndy Sarmiento MA Forms & Paperwork (ATI [...] 07/16/2025 11:00 AM EDT Office Visit [facility] [address] [place] [address] Liborio Coello MD [address] [place] [address], [address] [place] [address] [email or web address] – [...] PM EDT) HCV NON-REACTIV E NON-REACTI VE [facility] Blood 09/14/2020 12:2 9 PM EDT 09/14/2020 12:34 PM EDT Liborio Coello MD LAB BLOOD ORDERABLES Final Result [facility] [address] [place] [address] * MAMMOGRAPHY FOR RESULT ENTRY ONLY (05/11/2020) us Historical Provider HEALTH MAINTENANCE Edited Result - Final from Last 3 Months or Most Recently Relevant to Health Maintenance Insurance [facility] MEDICARE PPO BLUE REPLACEMENT [facility] MEDICARE PPO BLUE REPLACEMENT Member Subscriber Plan / Payer (Ef fective 2016-Present) Name:Lucinda Patel Relation to Subscriber:Self Name:Lucinda Patel Payer ID:[id number] (NAIC) Type:Medicare Address: [facility] [id number] [place], [place] Member Subscriber Plan / Payer (Ef fective 2016-Present) Name:Lucinda Patel Relation to Subscriber:Self Name:Lucinda Patel Payer ID:[id number] (NAIC) Type:Medicare Address: [facility] [id number] [place], [place] [address] MEDICARE PPO BLUE REPLACEMENT [place] [place] [address] MEDICARE PPO BLUE REPLACEMENT [place] [address] MEDICARE PPO BLUE REPLACEMENT [place] BLUE REPLACEMENT Care Teams Automobile Upholsterer Relationship Specialty Start Date End Date Liborio Coello MD [address] [place] [address], [address] [place] [address] PCP - General Family Medicine 04/01/18 Eamon Mayer MD [address] [place] [address] Obstetrics and Gynecology 01/10/19 Arslan Hamlin MD [address] [address] Gastroenterology 01/10/19 Michelet Connors MD [address] [place] [address] [address] [place] [address] Orthopedic Surgery 11/03/19 Karthik Patel DO [address] [place] [address] [address] [place] [address] Cardiology 06/15/20 Additional Source Comments The information contained in this document represents components of the legal health record. It is not the complete legal health record.[facility]
--- OUTSIDE RECORDS SUMMARY | 2025-01-16 08:48 | XMS_ITS | Clinical Summary ---
Author Organization [facility] [address] [facility] Address [address] [place] [address] Phone Care Team Providers Care Critical Care Registered Nurse Name Role Phone Liborio Coello MD Primary Care Provider [phone] Allergies Active Allergy Reactions Criticality Noted Date [...] 1 tablet by mouth. Active glucos sul 1TGl-ydd-xruzd- C-Mn (Glucosamine Chondroitin) 550-30-1 mg capsule Take [...] Patient aware to call or message in [employer] pending symptomatic improvement. Patient would like to [...] sites 04/11/2018 Overview (09/24/2024): Followed by her end finder forming department. Treated with Evista until 2020. By patient report bone density had improved and treatment was discontinued in 2020. 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 ([facility] V24) 04/11/2018 Ankle sprain 06/21/2012 [...] TOTAL KNEE; Surgeon: Michelet Connors MD; [facility]: [facility]); Service: Orthopedics; Laterality: Right; JOINT REPLACEMENT PROCEDURE:JOINT [...] this topic Medical Devices Implanted Type Area Receptionist Secretary Device Identifier Shelf Expiration Date Model / Serial / Lot Cement Simplex P Radiopaque Full Dose Bone 10 Pack - [id number] Implanted:Qty: 1 on 11/27/2019 by Michelet Connors MD Right: Knee [employer] 6191-010 / / Description:LOT [id number] Cement Simplex P Radiopaque Full Dose Bone 10 Pack - [id number] Implanted:Qty: 1 on 11/27/2019 by Michelet Connors MD Right: Knee [employer] 6191-010 / / [id number] Component Triathlon 3 Posterior Stabilized Cemented Femoral - [id number] Implanted:Qty: 1 on 11/27/2019 by Michelet Connors MD Right: Knee [employer] [id number] 04/20/2024 5515-F-302 / / [id number] Peg Triathlon Modular Fix Distal Femur Knee - [id number] Implanted:Qty: 1 on 11/27/2019 by Michelet Connors MD Right: Knee [employer] [id number] 02/28/2024 5575-X-000 / / [id number] Baseplate Triathlon 4 Primary Cemented Tibial Knee - [id number] Implanted:Qty: 1 on 11/27/2019 by Michelet Connors MD Right: Knee [employer] [id number] 05/18/2024 5520-B-400 / / [id number] Insert Triathlon 4 11mm Posterior Stabilized Bearing X3 - [id number] Implanted:Qty: 1 on 11/27/2019 by Michelet Connors MD Right: Knee [employer] [id number] 01/16/2024 5532-G-411 / / [id number] Component Triathlon 8mm 29mm Symmetric X3 Ptlar Totl Knee - [id number] Implanted:Qty: 1 on 11/27/2019 by Michelet Connors MD Right: Knee [employer] [id number] 05/06/2024 5550-G-298 / / PTRL Procedures Procedure [...] [place]OSS - [place] Care Teams Critical Care Registered Nurse Relationship Specialty Start Date End Date Liborio Coello MD [address] [place] [address] PCP - General Internal Medicine 07/02/18
--- OUTSIDE RECORDS SUMMARY | 2025-01-16 08:49 | XMS_ITS | Clinical Summary ---
Author Organization [facility] Address [address] [place] [address] Care Team Providers Care Equipment Engineer Name Role Phone Liborio Coello MD Primary Care Provider [phone] Allergies Active Allergy Reactions Criticality Noted Date [...] this topic Medical Devices Implanted Type Area Plate Embosser Device Identifier Shelf Expiration Date Model / Serial / Lot Cement Simplex P Radiopaque Full Dose Bone 10 Pack - [id number] - [id number] Implanted:Qty: 1 on 11/27/2019 by Michelet Connors MD at [facility] Right: Knee [employer] 6191-1-010 / / Description:LOT [id number] Cement Simplex P Radiopaque Full Dose Bone 10 Pack - [id number] - [id number] Implanted:Qty: 1 on 11/27/2019 by Michelet Connors MD at [facility] Right: Knee [employer] 6191-1-010 / / [id number] Component Triathlon 3 Posterior Stabilized Cemented Femoral - [id number] - [id number] Implanted:Qty: 1 on 11/27/2019 by Michelet Connors MD at [facility] Right: Knee [employer] [id number] 04/20/2024 5515-F-302 / / [id number] Peg Triathlon Modular Fix Distal Femur Knee - [id number] - [id number] Implanted:Qty: 1 on 11/27/2019 by Michelet Connors MD at [facility] Right: Knee [employer] [id number] 02/28/2024 5575-X-000 / / [id number] Baseplate Triathlon 4 Primary Cemented Tibial Knee - [id number] - [id number] Implanted:Qty: 1 on 11/27/2019 by Michelet Connors MD at [facility] Right: Knee [employer] [id number] 05/18/2024 5520-B-400 / / [id number] Insert Triathlon 4 11mm Posterior Stabilized Bearing X3 - [id number] - [id number] Implanted:Qty: 1 on 11/27/2019 by Michelet Connors MD at [facility] Right: Knee [employer] [id number] 01/16/2024 5532-G-411 / / [id number] Component Triathlon 8mm 29mm Symmetric X3 Ptlar Totl Knee - [id number] - [id number] Implanted:Qty: 1 on 11/27/2019 by Michelet Connors MD at [facility] Right: Knee [employer] [id number] 05/06/2024 5550-G-298 / / PTRL Advance Directives For more information, please contact: [phone] Latest Code Status on File Code Status [...] way: discussion with patient . Care Teams Equipment Engineer Relationship Specialty Start Date End Date Liborio Coello MD [address] [place] [address] PCP - General Internal Medicine 07/02/18
--- OUTSIDE RECORDS SUMMARY | 2025-01-16 08:49 | XMS_ITS | Encounter Summary ---
Author Organization [facility] Address [address] [place] [address] [place] [address] Phone Care Team Providers Care Coat Padder Name Role Phone Liborio Coello MD Primary Care Provider [phone] Eamon Maeyr MD Unavailable [phone] Arslan Hamlin MD Unavailable [phone] Michelet Connors MD Unavailable Karthik Patel DO Unavailable [phone] Encounter Details Date Type Department Care Team (Late st Contact Info) Description 01/06/2025 Orders Only [facility] Family Medicine [address] [place] [address] Provider, MD Oswaldo [facility] [place] [address] Social History Tobacco Use Types [...] Description 07/16/2025 11:00 AM EDT Office Visit [address] [address] Liborio Coello MD [address] [place] [address], [address] [place] [address] documented as of this encounter Procedures Procedure [...] documented as of this encounter Care Teams Coat Padder Relationship Specialty Start Date End Date Liborio Coello MD [address] [place] [address], [address] [place] [address] PCP - General Family Medicine 04/01/18 Eamon Mayer MD [address] [place] [address] Obstetrics and Gynecology 01/10/19 Arslan Hamlin MD [address] [place] [address] Gastroenterology 01/10/19 Michelet Connors MD [address] [place] [address] Dr [address] [place] [address] Orthopedic Surgery 11/03/19 Karthik Patel DO [address] [place] [address] Dr [address] [place] [address] Cardiology 06/15/20 documented as of this encounter Additional Source Comments The information contained in this document represents components of the legal health record. It is not the complete legal health record.[facility]
== END 2025-01-15 08:26 | disposition home or self-care (01) ==
LOC: HO.HOSX 08:25
PROVIDERS: Visit Provider Physician Assistant
DX: Z47.1 Aftercare following joint replacement surgery (principal); M17.12 Unilateral primary osteoarthritis, left knee; I83.893 Varicose veins of bilateral lower extremities with other complications; Z96.652 Presence of left artificial knee joint
CPT/HCPCS: 73562; 99212

== ENCOUNTER 2025-01-15 14:02 | Outpatient (AMB) | payer MEDICARE, SELFPAY ==
--- OUTSIDE RECORDS SUMMARY | 2024-01-08 12:07 | XMS_ITS | Encounter Summary ---
Author Organization [facility] Address [address] [place] [address] Care Team Providers Care Exceptional Children Teacher Name Role Phone Liborio Coello MD Primary Care Provider +1- [phone] Encounter Details Date Type Department Care Team [...] PM EDT Narrative 01/09/2024 8:05 AM EDT [facility] Diagnostic Imaging Department [address] [place] [address] Patient: JUAN PATEL /Age/Sex: 1950 - 73 - F Unit#: [id number] Location/Status: SPDIGEN/REG CLI Mnemonic/Ordering Site: ABDOFLEREC/SPDI Ordering [...] There is evidence of moderate constipation. Code 77157 Dictating Physician: SHUKRI SURESH MD Electronically Signed by: SHUKRI SURESH MD Dic Date/Time: 01/09/24803 Sign date/Time: 01/09/24804 Procedure Note Shukri Suresh MD - 01/22/2024 [facility] Diagnostic Imaging Department [address] [place], [place] [address] Patient: JUAN PATEL /Age/Sex: 1950 - 73 - F Unit#: [id number] Location/Status: SPDIGEN/REG CLI Mnemonic/Ordering [facility]: [facility] Ordering Physician: ARSLAN DELGADILLO MD DR [...] pattern. There is evidence ofmoderate constipation. Code 82887 Dictating Physician: SHUKRI SURESH MD Electronically Signed by: SHUKRI SURESH MD Dic Date/Time: 01/09/24803 Sign date/Time: 01/09/24804 Arslan Delgadillo MD IMG XR PROCEDURES Final Result documented in this encounter Visit Diagnoses Diagnosis Constipation, unspecified documented in this encounter Care Teams Exceptional Children Teacher Relationship Specialty Start Date End Date Liborio Coello MD [address] [place] [address] PCP - General Internal Medicine 07/02/18 documented as of this encounter
--- NOTE | 2025-01-15 14:27 | A.OFFVIS_ITS ---
Intake Visit Reasons: 2WKPO: L TKA w/ 12/29/24 Intake Note: Lucinda is a 74 year old female who presents today for a post operative appointment of her left total knee arthroplasty done on 12/29/[address] Connors. Patient reports she is doing well. She is having trouble sleeping at night, not with her pain but to find comfort. Patient informed me that she is very sensitive on the medial aspect of the knee. Allergies bee pollen (bee stings) Allergy (Intermediate, Verified 01/15/25 14:38) Swelling for several weeks HPI HPI 2WKPO: L TKA w/ 12/29/24: Details: Ms. Patel is a 74-year-old female who presents to the office today status post left total knee arthroplasty performed by Dr. Connors on 12/29/2024. Patient states that overall she is doing very well. She has a longer taking any narcotic medications. She presents to the office today using a walker. She has been participating in home physical therapy. COUNT INCLUDES THE [facility] Medical History Family history of colon cancer in mother Spinal stenosis Scoliosis Back pain Varicose vein of leg Depression Osteoarthritis Surgical History History of lumpectomy of left breast Hx of varicose vein ligation H/O colonoscopy History of total right knee replacement Social History Household Members: Family Housing: House Are you a primary client care coordinator to a significant other at home: Yes (son w/Down's Syndrome) Do you presently have visiting nurse or other home services: No Patient Tobacco Use Status: Never used Tobacco service: No Current occupational status: retired Current occupation: rt handed Review of Systems Const All systems reviewed & are unremarkable except as noted in HPI and below Physical Exam Const General: cooperative, healthy appearing and no acute distress Resp Effort & Inspection: normal respiratory effort and able to speak in complete sentences Extrem Other: Left knee incision site is clean dry and intact. [place] intact. No surrounding erythema or drainage. No signs of infection. Range of motion 10 to 120 degrees. NVI. Psych Appearance: grossly normal Mental Status: mental status grossly normal Attitude: cooperative Assessment & Plan Assessment & Plan (1) Osteoarthritis of left knee: Code(s): M17.12 - Unilateral primary osteoarthritis, left knee Category: Medical (2) Status post total left knee replacement: Code(s): Z96.652 - Presence of left artificial knee joint Category: Surgical Plan Ms. Patel is a 74-year-old female who presents to the office today status post left total knee arthroplasty performed by Dr. Connors on 12/29/2024. Patient states that overall she is doing very well. She has a longer taking any narcotic medications. She presents to the office today using a walker. She has been participating in home physical therapy. While in the office today rhiannon were removed and Steri-Strips were applied. She was instructed to take aspirin for a total of 6 weeks postoperatively for DVT prophylaxis. She will attend outpatient physical therapy at [facility]. A physical therapy prescription has been provided to the patient while in the office today. Additionally, the patient asked for a referral to vascular as she has experienced vascular concerns in bilateral lower extremities in the past and wishes to have this readdressed. She will follow up with Dr. Connors in 4 weeks, sooner if needed. X-rays of the left knee which were obtained while in the office today and were reviewed by me, Ellie Varner PA-C, revealed intact left knee total arthroplasty with satisfactory alignment. Orders: Orders XR knee LT 3V Today M25.569 - Pain in unspecified knee PT Evaluation and Treatment Today Z96.652 - Presence of left artificial knee joint Referrals Vascular Surgery Referral I83.893 - Varicose veins of bilateral lower extremities with other complications Coding Level of Care Code Global (93464) Diagnoses Osteoarthritis of left knee M17.12 Status post total left knee replacement Z96.652
--- OUTSIDE RECORDS SUMMARY | 2025-01-15 17:53 | XMS_ITS | Clinical Summary ---
Author Organization [facility] [address] [facility] Address [address] [place] [address] Phone Care Team Providers Care Rn Lvn Name Role Phone Liborio Coello MD Primary Care Provider [phone] Allergies Active Allergy Reactions Criticality Noted Date [...] 1 tablet by mouth. Active glucos sul 6BBz-vwp-pfzel- C-Mn (Glucosamine Chondroitin) 550-30-1 mg capsule Take [...] Patient aware to call or message in [facility] pending symptomatic improvement. Patient would like to [...] sites 04/11/2018 Overview (09/24/2024): Followed by her air conditioning manager. Treated with Evista until 2020. By patient report bone density had improved and treatment was discontinued in 2020. 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 ([facility] V24) 04/11/2018 Ankle sprain 06/21/2012 Varicose vein [...] TOTAL KNEE; Surgeon: Michelet Connors MD; Location: [facility] ([facility]); Service: Orthopedics; Laterality: Right; JOINT REPLACEMENT [...] this topic Medical Devices Implanted Type Area Scheduler Device Identifier Shelf Expiration Date Model / Serial / Lot Cement Simplex P Radiopaque Full Dose Bone 10 Pack - [id number] Implanted:Qty: 1 on 11/27/2019 by Michelet Connors MD Right: Knee [employer] 6191-010 / / Description:LOT [id number] Cement Simplex P Radiopaque Full Dose Bone 10 Pack - [id number] Implanted:Qty: 1 on 11/27/2019 by Michelet Connors MD Right: Knee [employer] 6191-010 / / [id number] Component Triathlon 3 Posterior Stabilized Cemented Femoral - [id number] Implanted:Qty: 1 on 11/27/2019 by Michelet Connors MD Right: Knee [employer] [id number] 04/20/2024 5515-F-302 / / [id number] Peg Triathlon Modular Fix Distal Femur Knee - [id number] Implanted:Qty: 1 on 11/27/2019 by Michelet Connors MD Right: Knee [employer] [id number] 02/28/2024 5575-X-000 / / [id number] Baseplate Triathlon 4 Primary Cemented Tibial Knee - [id number] Implanted:Qty: 1 on 11/27/2019 by Michelet Connors MD Right: Knee [employer] [id number] 05/18/2024 5520-B-400 / / [id number] Insert Triathlon 4 11mm Posterior Stabilized Bearing X3 - [id number] Implanted:Qty: 1 on 11/27/2019 by Michelet Connors MD Right: Knee [employer] [id number] 01/16/2024 5532-G-411 / / [id number] Component Triathlon 8mm 29mm Symmetric X3 Ptlar Totl Knee - [id number] Implanted:Qty: 1 on 11/27/2019 by Michelet Connors MD Right: Knee [employer] [id number] 05/06/2024 5550-G-298 / / PTRL Procedures Procedure [...] [place] - [place] Care Teams Rn Lvn Relationship Specialty Start Date End Date Liborio Coello MD [address] [place] [address] PCP - General Internal Medicine 07/02/18
--- OUTSIDE RECORDS SUMMARY | 2025-01-15 17:53 | XMS_ITS | Clinical Summary ---
Author Organization [facility] Address [address] [place] [address] Care Team Providers Care Research Project Manager Name Role Phone Liborio Coello MD Primary Care Provider [phone] Allergies Active Allergy Reactions Criticality Noted Date [...] this topic Medical Devices Implanted Type Area Psychiatric Assistant Device Identifier Shelf Expiration Date Model / Serial / Lot Cement Simplex P Radiopaque Full Dose Bone 10 Pack - [id number] - [id number] Implanted:Qty: 1 on 11/27/2019 by Michelet Connors MD at [facility] Right: Knee [employer] 6191-1-010 / / Description:LOT [id number] Cement Simplex P Radiopaque Full Dose Bone 10 Pack - [id number] - [id number] Implanted:Qty: 1 on 11/27/2019 by Michelet Connors MD at [facility] Right: Knee [employer] 6191-1-010 / / [id number] Component Triathlon 3 Posterior Stabilized Cemented Femoral - [id number] - [id number] Implanted:Qty: 1 on 11/27/2019 by Michelet Connors MD at [facility] Right: Knee [employer] [id number] 04/20/2024 5515-F-302 / / [id number] Peg Triathlon Modular Fix Distal Femur Knee - 318013 - [id number] Implanted:Qty: 1 on 11/27/2019 by Michelet Connors MD at [facility] Right: Knee [employer] [id number] 02/28/2024 5575-X-000 / / [id number] Baseplate Triathlon 4 Primary Cemented Tibial Knee - 260252 - [id number] Implanted:Qty: 1 on 11/27/2019 by Michelet Connors MD at [facility] Right: Knee [employer] [id number] 05/18/2024 5520-B-400 / / [id number] Insert Triathlon 4 11mm Posterior Stabilized Bearing X3 - 327300 - [id number] Implanted:Qty: 1 on 11/27/2019 by Michelet Connors MD at [facility] Right: Knee [employer] [id number] 01/16/2024 5532-G-411 / / [id number] Component Triathlon 8mm 29mm Symmetric X3 Ptlar Totl Knee - 784249 - [id number] Implanted:Qty: 1 on 11/27/2019 by Michelet Connors MD at [facility] Right: Knee [employer] [id number] 05/06/2024 5550-G-298 / / PTRL Advance Directives For more information, please contact: [phone] Latest Code Status on File Code Status [...] way: discussion with patient . Care Teams Research Project Manager Relationship Specialty Start Date End Date Liborio Coello MD [address] [place] [address] PCP - General Internal Medicine 07/02/18
--- OUTSIDE RECORDS SUMMARY | 2025-01-15 17:53 | XMS_ITS | Encounter Summary ---
Author Organization [facility] Address [address] [place] [address] [place] [address] Phone Care Team Providers Care Relocation Manager Name Role Phone Liborio Coello MD Primary Care Provider [phone] Eamon Mayer MD Unavailable Arslan Hamlin MD Unavailable [phone] Michelet Connors MD Unavailable Karthik Patel DO Unavailable [phone] Encounter Details Date Type Department Care Team (Late st Contact Info) Description 01/06/2025 Orders Only [facility] Family Medicine [address] [place] [address] Provider, MD Oswaldo [place] [address] Social History Tobacco Use Types Packs/Day Years [...] Description 07/16/2025 11:00 AM EDT Office Visit [address] [address] Liborio Coello MD [address] [place] [address], [address] [place] [address] documented as of this encounter Procedures Procedure Name Priority Date/Time Associated Diagnosis Comments OUTSIDE US IMAGING REPORT ONLY Routine 01/02/2025 3:03 PM EDT documented in this encounter Results * Outside US Imaging??Report Only (01/02/2025 3:03 PM EDT) us Historical Provider MD GERARD US OP Edited Re sult - Final documented in this encounter Visit Diagnoses Not on filedocumented in this encounter Additional Health Concerns Assessment Noted Time PHQ-2 Depression Total Score: 0 07/09/19 25 1:06 AM EDT documented as of this encounter Care Teams Relocation Manager Relationship Specialty Start Date End Date Liborio Coello MD [address] [place] [address], [address] [place] [address] PCP - General Family Medicine 04/01/18 Eamon Mayer MD [address] [place] [address] Obstetrics and Gynecology 01/10/19 Arslan Hamlin MD [address] [place] [address] Gastroenterology 01/10/19 Michelet Connors MD [address] [place] [address] Dr [address] [place] [address] Orthopedic Surgery 11/03/19 Karthik Patel DO [address] [place] [address] Dr [address] [place] [address] Cardiology 06/15/20 documented as of this encounter Additional Source Comments The information contained in this document represents components of the legal health record. It is not the complete legal health record.[facility]
--- OUTSIDE RECORDS SUMMARY | 2025-01-15 17:53 | XMS_ITS | Data Portability ---
Author Organization [place] [facility] [place] Address [address] [place] [address] Assessment Encounter Date Assessment Date Assessment LastModified [...] more view 023 12/06/19 [email or web address] [facility], [address], [place], [address], 3 10:56:36 XR, knee, 4 or more view 023 12/06/19 [email or web address] [facility], [address], [place], [address], 3 10:56:36 Medication Orders None record ed. Patient TargetsNo targets recorded. Patient Instructions Encounter Date Encounter Id Patient Instructions Last Modified By Organization Details Last Modified Time 12/05/2022 [id number] X-ray of the rig ht knee reveals well-seated well-positioned total knee arthroplasty without sign of loosening. Left knee AP, [place], lateral and sunrise view reveals tricompartmental severe degenerative change. Not available 12/07/2022 08:40:15 Reason for Referral None Reported. Problems Name Problem SNOMED Code Status Onset Date Resolution Date Notes Provider Name and Address Organization Details Recorded Time Arthritis of right knee joint 26073640275 82686 Active 2018 Arthritis of knee, right Art hritis of right knee Not Available [facility] 5 00:26:20 Arthritis of left knee joint 60645642472 45151 Active 2018 Arthritis of knee, left Not Available [facility] 5 00:26:21 Problem Notes None recorded. Medical Equipment None Reported. Allergies Allergen ID Allergen Name Allergen Category Reaction Reaction Severity Criticality Documentation Date Start Date Code Code System Note Provider Name and Address Organization Details Recorded Time 967092 sertralin e medicatio n Not available Not available Not available 12/16/20242018 80309 RxNorm React ion: Other (See Comme nts), sever ity: Unkno wn;No energ y, sleep y Not Available [facility] 5 01:30:50 131054 bee pollen environme nt,medica tion Not available Not available Not available 12/16/20242018 75566 7 RxNorm React ion: Swell ing, sever ity: Unkno wn;Re actio n: Rash, sever ity: Unkno wn;Ra sh>si gnifi cant bruis ing - pt advis ed to carry epipe n for futur e Not Available [facility] 5 01:30:51 Medications Name Sig Start Date [...] ICD10 Code Diagnosis IMO Codes Diagnosis Note [id number] SHANNON ALEMAN [facility] [address] [facility] [address] [place] [address] 12/05/2022 13:04:58 12/05/2022 14:04:05 History of right total knee replacement 2499816457 653777 Z96.651 Pain of le ft knee joint 3014148809 99131 M25.562 Health Concerns Section Related Observation LastModified by Organization Detai ls LastModified Time None Recorded Concern Status LastModified by Organization Details LastModified Time None Recorded Advance Directives Directive None Recorded Payers Insurance Date Sequence Insurance Name Policy Number Policy Aaron Covered Member ID Aaron Member ID Guarantor Name 12/05/2022 1 [facility]: MEDICARE PPO BLUE (MEDICARE REPLACEMENT PPO) [id number] Lucinda Patel [id number] Lucinda Patel Notes Date Note Type [...] at this time. TAHIR BEAR PA-C [address] [facility] [address], [place], [address], [place] [facility], P 12/07/2022 08:41:40 OBGyn Episode No OBEpisode recorded.
--- OUTSIDE RECORDS SUMMARY | 2025-01-15 17:53 | XMS_ITS | Clinical Summary ---
Author Organization [facility] Address [address] [facility] [address] [place] [address] Phone Care Team Providers Care Tie Worker Name Role Phone Liborio Coello MD Primary Care Provider [phone] Eamon Mayer MD Unavailable Arslan Hamlin MD Unavailable Michelet Connors MD Unavailable [phone] Karthik Patel DO Unavailable [phone] Allergies Active Allergy Reactions Criticality Noted Date [...] Take 75 mg by mouth daily. 11/27/19 Active docusate sodium (COLACE) 100 MG capsule Take 100 mg by mouth 2 (two) times a day. 04/26/19 Active acetaminophen (TYLENOL) 500 mg capsule Take 500 mg by mouth. Active aspirin 325 MG EC tablet Take 325 mg by mouth 2 (two) times a day. Active celecoxib (CELEBREX) 200 MG capsule Take 200 mg by mouth 2 (two) times a day. Active methocarbamoL (ROBAXIN) 750 MG tablet Take 750 mg by mouth 4 (four) times a day. Active Active Problems Problem Noted Date Diagnosed [...] a stool softener as recommended by her organ installer, but she continues to have symptoms. They [...] son moving back to his apartment in [place] and concerns about her 's alcohol use. [...] second opinion I can refer her to [facility] vascular. Assessment & Plan (11/03/2019 12:07 PM EDT): Ankle edema is due to varicose veins. This should not be a significant complicating factor for surgery. Osteopenia of multiple sites 04/11/2018 Overview (09/14/2020): Followed by her home energy auditor. Treated with Evista until 2020. By patient [...] her diet. She will follow-up with her home energy auditor to discuss when she is due for another bone density. I told her that I can manage this in the future once her home energy auditor retires. Primary osteoarthritis of left knee 04/11/2018 Assessment & Plan (12/04/2024 3:50 PM EDT): Labs and EKG done earlier this week at [facility] were reviewed and showed no significant [...] her back. Agree with recommendation from her carbonator to start physical therapy. If this is [...] Encounters Date Type Department Care Team Description 01/09/2025 12:40 PM EDT Telemedicine [facility] [address] [place] [address] Tanja Godfrey FNP Sleep disturbance (Primary Dx) 01/06/[address] [place] [address] Liborio Coello MD Medication Question 01/06/2025 Orders Only [address] [place] [address] ProviderOswaldo MD 12/17/[address] [place] [address] Liborio Coello MD orders (Hearing test) 12/04/2024 3:30 PM EDT Office Visit [address] [place] [address] Liborio Coello MD Primary osteoarthritis of left knee (Primary Dx); Degeneration of intervertebral disc of lumbar region with discogenic back pain; Overactive bladder; Recurrent major depressive disorder in partial remission 12/02/[address] [address] Liborio Coello MD Triage (Covid question) 11/11/[address] [place] [address] Cyndy Sarmiento MA Forms & Paperwork ([facility] 8/8/25) 11/05/2024 Telephone [facility] [address] [place] [address] Cyndy Sarmiento MA Forms & Paperwork ([facility] PT) from Last 3 Months Immunizations Immunization Administration [...] Description 07/16/2025 11:00 AM EDT Office Visit [facility] [address] [place] [address] Liborio Coello MD [address] [place] [address], [address] [place] [address] [email or web address] Health Maintenance Due Date Last Done Comments HEPATITIS A VACCINES (1 of 2 - Risk 2-dose series) 12/05/1970 COLOGUARD 12/05/1996 FIT TEST 12/05/1996 FOBT 12/05/1996 SIGMOIDOSCOPY 12/05/1996 VIRTUAL COLONOSCOPY 12/05/1996 RSV VACCINE (1 - Risk 50-74 years 1-dose series) 12/05/2001 ZOSTER VACCINES (1 of 2) 12/05/2001 INFLUENZA VACCINE (#1) 2024 , 01/19/2023, 01/13/2022, [...] REPORT ONLY Routine 01/02/2025 3:03 PM EDT BI MAMMOGRAM SCREENING (BILATERAL) Routine 10/31/2022 11:31 AM EDT Breast cancer screening by mammogram HM COLONOSCOPY FOR RESULT ENTRY ONLY Routine 04/20/2021 HEPATITIS C ANTIBODY, QUALITATIVE Routine 09/14/2020 12:29 PM EDT Need for hepatitis C screening test from Last 3 Months or Most Recently Relevant to Health Maintenance Results * Outside US Imaging??Report Only (01/02/2025 3:03 PM EDT) us Historical Provider IMG US OP Edited Re sult - Final * HM COLONOSCOPY FOR RESULT ENTRY ONLY (04/20/2021) us Historical Provider HEALTH MAINTENANCE Edited Result - Final * Hepatitis C antibody, qualitative (09/14/2020 12:29 PM EDT) HCV NON-REACTIV E NON-REACTI VE [facility] Blood 09/14/2020 12:2 9 PM EDT 09/14/2020 12:34 PM EDT Liborio oCello MD LAB BLOOD ORDERABLES Final Result [facility] [address] [place] [address] * MAMMOGRAPHY FOR RESULT ENTRY ONLY (05/11/2020) us Historical Provider HEALTH MAINTENANCE Edited Result - Final from Last 3 Months or Most Recently Relevant to Health Maintenance Insurance [facility] MEDICARE PPO BLUE REPLACEMENT [facility] MEDICARE PPO BLUE REPLACEMENT Member Subscriber Plan / Payer (Ef fective 2016-Present) Name:Lucinda Patel Relation to Subscriber:Self Name:Lucinda Patel Payer ID:[id number] (NAIC) Type:Medicare Address: [facility] [id number] [place], [place] Member Subscriber Plan / Payer (Ef fective 2016-Present) Name:Lucinda Patel Relation to Subscriber:Self Name:Lucinda Patel Payer ID:[id number] (NAIC) Type:Medicare Address: [facility] [id number] [place], [place] [address] MEDICARE PPO BLUE [address] [address] MEDICARE PPO BLUE REPLACEMENT [place] [address] MEDICARE PPO BLUE REPLACEMENT [place] BLUE REPLACEMENT Care Teams Tie Worker Relationship Specialty Start Date End Date Liborio Coello MD [address] [place] [address], [address] [place] [address] PCP - General Family Medicine 04/01/18 Eamon Mayer MD [address] [place] [address] Obstetrics and Gynecology 01/10/19 Arslan Hamlin MD [address] [address] Gastroenterology 01/10/19 Michelet Connors MD [address] [place] [address] [address] [place] [address] Orthopedic Surgery 11/03/19 Karthik Patel DO [address] [place] [address] Dr [address] [place] [address] Cardiology 06/15/20 Additional Source Comments The information contained in this document represents components of the legal health record. It is not the complete legal health record.[facility]
== END 2025-01-15 15:19 | disposition home or self-care (01) ==
LOC: HO.HOS 14:03
PROVIDERS: Visit Provider Physician Assistant
DX: M17.12 Unilateral primary osteoarthritis, left knee (principal); Z96.652 Presence of left artificial knee joint
CPT/HCPCS: 99024

== ENCOUNTER → 2025-01-15 14:19 | Outpatient (BNV) | payer MEDICARE, SELFPAY | PROVIDERS: Visit Provider Radiology Diagnostic Ultrasound | DX: M25.562 Pain in left knee (principal) | CPT/HCPCS: 73562 ==

== ENCOUNTER 2025-01-24 17:01 | Emergency (ER) | payer MEDICARE, SELFPAY ==
--- OUTSIDE RECORDS SUMMARY | 2024-01-08 12:07 | XMS_ITS | Encounter Summary ---
Author Organization [facility] Address [address] [place] [address] Care Team Providers Care Shift Superintendent Name Role Phone Liborio Coello MD Primary Care Provider +1- [phone] Encounter Details Date Type Department Care Team [...] PM EDT Narrative 01/09/2024 8:[address] [facility] Diagnostic Imaging Department [address] [place], [place] [address] Patient: JUAN PATEL /Age/Sex: 1950 - 73 - F Unit#: [id number] Location/Status: SPDIGEN/REG CLI Mnemonic/Ordering Site: ABDOFLEREC/SPDI Ordering [...] There is evidence of moderate constipation. Code 72986 Dictating Physician: SHUKRI SURESH MD Electronically Signed by: SHUKRI SURESH MD Dic Date/Time: 01/09/24803 Sign date/Time: 01/09/24804 Procedure Note Shukri Suresh MD - 01/22/2024 [facility] Diagnostic Imaging Department [address] [place] [address] Patient: JUAN PATEL /Age/Sex: 1950 - 73 - F Unit#: [id number] Location/Status: SPDIGEN/REG CLI Mnemonic/[facility] Ordering Physician: ARSLAN DELGADILLO MD DR [...] pattern. There is evidence ofmoderate constipation. Code 81025 Dictating Physician: SHUKRI SURESH MD Electronically Signed by: SHUKRI SURESH MD Dic Date/Time: 01/09/24803 Sign date/Time: 01/09/24804 Arslan Delgadillo MD IMG XR PROCEDURES Final Result documented in this encounter Visit Diagnoses Diagnosis Constipation, unspecified documented in this encounter Care Teams Shift Superintendent Relationship Specialty Start Date End Date Liborio Coello MD [address] [place] [address] PCP - General Internal Medicine 07/02/18 documented as of this encounter
--- NOTE | ~2025-01-24 | US_ITS ---
CLINICAL HISTORY: LLE edema s p knee replacement. r o dvt Venous duplex ultrasound left lower extremity Comparison: US/SR - US LOWER EXTREMITY VEINS LIMITED LEFT - 01/02/25 13:22 EDT Findings: The visualized deep veins are fully compressible with normal Doppler color flow and spectral tracings. Compressible varicosities noted in the medial mid calf. No thrombus seen within varicosities. No popliteal cyst. IMPRESSION: 1. Negative for left lower extremity deep vein thrombosis. This document has been electronically signed by: Dustin Burleson MD on 01/24/2025 20:31:14
[2025-01-24 17:22] VITALS: BP 142/82; PULSE 82; RESP 18; TEMP 36.7; O2SAT 97; BMI 25.5
--- NOTE | 2025-01-24 17:22 | ED.LOWEXIN ---
HPI - Extremity Injury (Lower) General Chief Complaint: Extremity Injury, Lower Stated Complaint: ultrasound left leg Time Seen by Provider: 01/24/25 20:19 Source: patient Limitations: no limitations History of Present Illness ED Provider: Roxanne Melissa PA-C HPI Narrative: 74-year-old female with a known osteoarthritis, now status post left knee replacement 4 weeks ago, presents with swelling of the left lower extremity. Patient states she has been attending physical therapy, over the past few days, she has transitioned from a walker to a cane. She has developed subtle swelling of the left lower extremity from the knee to the ankle. Denies focal calf pain. Denies new knee pain, redness, swelling or warmth, no inability to flex or extend, no fever. The patient did not injured the knee, there has been no trauma. Related Data Home Medications ?Medication ?Instructions ?Recorded ?Confirmed bupropion HCl 300 mg 24 hr tablet, 300 mg PO QAM 04/01/24 12/25/24 extended release Bifidobacterium longum 10 million 10,000,000 cell PO DAILY 12/01/24 12/25/24 cell capsule (Align (B.longum)) biotin 10,000 mcg disintegrating 10,000 mcg PO DAILY 12/01/24 12/25/24 tablet calcium carbonate (Calcium 500) 1,000 mg PO BEDTIME 12/01/24 12/25/24 cholecalciferol (vitamin D3) 10 10 mcg PO BEDTIME 12/01/24 12/25/24 mcg (400 unit) tablet (Vitamin D3) multivitamin-ferrous 1 tab PO QAM 12/01/24 12/25/24 fumarate-folic acid 18 mg-400 mcg tablet (Centrum Women) polyethylene glycol 3350 17 17 g PO 2XW 12/01/24 12/25/24 gram/dose oral powder (Miralax) vibegron 75 mg tablet (Gemtesa) 75 mg PO QAM 12/01/24 12/25/24 Previous Rx's ?Medication ?Instructions ?Recorded walker #1 ea 11/03/24 acetaminophen 325 mg tablet 650 mg (2 x 325 mg) PO Q6H PRN 12/30/24 Pain, Mild 1-3,Fever,Headache 30 days #240 tabs aspirin 325 mg tablet 325 mg PO BID 42 days #84 tabs 12/30/24 celecoxib 200 mg capsule 200 mg PO BID 30 days #60 caps 12/30/24 docusate sodium 100 mg capsule 100 mg PO BID 30 days #60 caps 12/30/24 gabapentin 100 mg capsule 100 mg PO BEDTIME 7 days #7 caps 12/30/24 methocarbamol 750 mg tablet 750 mg PO TID 7 days #21 tabs 12/30/24 oxycodone 5 mg tablet 5 mg PO Q4H PRN Pain, 12/30/24 Moderate(Pain Scale 4-6) 7 days #42 tabs Allergies Allergy/AdvReac Type Severity Reaction Status Date / Time bee pollen (bee stings) Allergy Intermediate Swelling Verified 01/24/25 17:25 for several weeks Review of Systems Review of Systems: Yes all other systems are reviewed and are negative Constitutional: Constitutional: Denies fatigue and Denies fever(s) Cardiovascular: Cardiovascular: Reports chest pain, Reports leg edema and Denies dyspnea Respiratory: Respiratory: Denies dyspnea Musculoskeletal: Musculoskeletal: Reports arthralgias and Reports joint swelling Integumentary/Breasts: Skin/Breast: Denies erythema, Denies skin swelling, Denies sores and Denies wounds Endocrine: Endocrine: Denies fatigue [facility] Past Medical History Attestation statement: The following information was validated with the patient. Medical History Family history of colon cancer in mother Spinal stenosis Scoliosis Back pain Varicose vein of leg Depression Osteoarthritis Surgical History History of lumpectomy of left breast Hx of varicose vein ligation H/O colonoscopy History of total right knee replacement Social History Social History Household Members: Family Housing: House Are you a primary healthcare manager to a significant other at home: Yes (son w/Down's Syndrome) Do you presently have visiting nurse or other home services: No Patient Tobacco Use Status: Never used Tobacco Smoked in Last 30 Days: No Advance Directives: No Advance Directives Information Provided: Yes Do you have a plan to hurt others: No Plan service: No Current occupational status: retired Current occupation: rt handed Physical Exam Vital Signs: Vital Signs: Last Vital Signs Temp 97.9 F 01/24/25 20:58 Pulse 75 01/24/25 20:58 Resp 16 01/24/25 20:58 BP 147/86 H 01/24/25 20:58 Pulse Ox 98 01/24/25 20:58 O2 Del Method Room Air 01/24/25 20:58 BMI result Body Mass Index 25.5 Const: Other: Alert well-appearing Orientation/consciousness: patient oriented x3 Resp: Effort & Inspection: normal respiratory effort Cardio: Other: Trace pedal edema bilaterally, left greater than right, otherwise normal peripheral perfusion Skin: Other: Warm dry no rash Neuro: General: patient oriented x3, gait normal, no focal motor deficits and CN's II-XI intact bilaterally Extrem: Other: Full flexion and extension of the left knee, no overlying redness, warmth, swelling or pain to palpation, this incision site is clean and dry, Psych: Other: Cooperative Course Course Course Narrative: This is a Rapid Medical Exam performed in triage by Reta Louis PA-C. Full HPI, ROS and PE to be performed by primary ED provider. 74 yo F w/PMHx Depression, presenting to the ED c/o LLE swelling x 2 days. States has knee replacement 4wks ago by Dr. Connors. Denies SOB, hx clots. Takes baby ASA PE: ambulating with cane. +LLE with nonpitting edema. only surgical scar noted to knee, healing appropriately Plan: US Medical Decision Making Medical Decision Making MDM Narrative: 74-year-old female with a known osteoarthritis, now status post left knee replacement 4 weeks ago, presents with swelling of the left lower extremity. Patient states she has been attending physical therapy, over the past few days, she has transitioned from a walker to a cane. She has developed subtle swelling of the left lower extremity from the knee to the ankle. Denies focal calf pain. Denies new knee pain, redness, swelling or warmth, no inability to flex or extend, no fever. The patient did not injured the knee, there has been no trauma. Problem: Recent surgery History: Per patient I have considered the following differential diagnoses: DVT, Michelle cyst, cellulitis, septic effusion, overuse injury Plan: Ultrasound ordered from triage, there was no DVT there was no Michelle cyst. The patient has no cellulitic changes of the incision site, her exam was not consistent with a septic joint, I suspect her increased activity has caused downstream swelling. We will send with home care instructions. I have independently reviewed the following tests: Ultrasound left lower extremity:Findings: The visualized deep veins are fully compressible with normal Doppler color flow and spectral tracings. Compressible varicosities noted in the medial mid calf. No thrombus seen within varicosities. No popliteal cyst. IMPRESSION: 1. Negative for left lower extremity deep vein thrombosis. Differential Diagnosis Differential Diagnoses: The differential diagnosis associated with the presentation includes See medical decision-making Admission/Observation Consideration of admission/observation: Escalation of care including admission/observation considered Not applicable Radiology Impression Discussion of test interpretation with radiology: I have reviewed the radiologist's reading. Discharge Plan Discharge Clinical Impression: Left leg swelling, Dependent edema Patient Disposition: Home, Self-Care Instructions: Leg Edema (ED) Additional Instructions: The ultrasound was negative for DVT or Michelle cyst. Given the increase in your physical activity, transitioning from the walker to a cane, could have caused some additional swelling secondary to increased use of the left leg with a weight-bearing activity. You could also have dependent edema, you do have some degree of swelling at the ankle of the right lower extremity. The use of compression stockings can help with circulation, elevating your feet while resting is also beneficial. Continue to follow up with primary care and your orthopedist. Prescriptions: No Action (DME) walker Misc See Rx Instructions .MEDSUPPLY Qty: 1 0RF Rx Instructions: Folding front wheeled walker Gemtesa 75 mg tablet 75 mg PO QAM calcium carbonate [Calcium 500] 500 mg calcium (1,250 mg) Tablet,Chewable 1,000 mg PO BEDTIME polyethylene glycol 3350 [Miralax] 17 gram/dose Powder 17 g PO 2XW cholecalciferol (vitamin D3) [Vitamin D3] 10 mcg (400 unit) Tablet 10 mcg PO BEDTIME Centrum Women 18-400 mg-mcg Tablet 1 tab PO QAM biotin 10,000 mcg Tablet,Disintegrating 10,000 mcg PO DAILY Align (B.longum) 10 million cell Capsule 10,000,000 cell PO DAILY methocarbamol 750 mg Tablet 750 mg PO TID 7 Days Qty: 21 0RF celecoxib 200 mg Capsule 200 mg PO BID 30 Days Qty: 60 0RF acetaminophen 325 mg Tablet 650 mg PO Q6H PRN (Reason: Pain, Mild 1-3,Fever,Headache) 30 Days Qty: 240 0RF aspirin 325 mg Tablet 325 mg PO BID 42 Days Qty: 84 0RF docusate sodium 100 mg Capsule 100 mg PO BID 30 Days Qty: 60 0RF gabapentin 100 mg Capsule 100 mg PO BEDTIME 7 Days Qty: 7 0RF oxycodone 5 mg Tablet 5 mg PO Q4H PRN (Reason: Pain, Moderate(Pain Scale 4-6)) 7 Days Qty: 42 0RF Rx Instructions: Partial Fill upon patient request. bupropion HCl 300 mg tablet extended release 24 hr 300 mg PO QAM Interventions: ED Discharge Assessment Last Done: 01/24/25 20:58 Discharge Date/Time: 01/24/25 21:00 Print Language: Tongan
--- OUTSIDE RECORDS SUMMARY | 2025-01-24 20:50 | XMS_ITS | Encounter Summary ---
Author Organization [facility] Address [address] [facility] [address] [place] [address] Phone Care Team Providers Care Channel Man Name Role Phone Liborio Coello MD Primary Care Provider [phone] Eamon Mayer MD Unavailable [phone] Arslan Hamlin MD Unavailable [phone] Michelet Connors MD Unavailable Karthik Patel DO Unavailable [phone] Encounter Details Date Type Department Care Team (Late st Contact Info) Description 01/06/2025 Orders Only [facility] Family Medicine [address] [place] [address] Provider, MD Oswaldo [facility] [place] [address] Social History Tobacco Use Types [...] Description 07/16/2025 11:00 AM EDT Office Visit [address] [address] Liborio Coello MD [address] [place] [address], [address] [place] [address] [email or web address] documented as of this encounter Procedures Procedure [...] documented as of this encounter Care Teams Channel Man Relationship Specialty Start Date End Date Liborio Coello MD [address] [place] [address], [address] [place] [address] [email or web address] PCP - General Family Medicine 04/01/18 Eamon Mayer MD [address] [place] [address] Obstetrics and Gynecology 01/10/19 Arslan Hamlin MD [address] [place] [address] Gastroenterology 01/10/19 Michelet Connors MD [address] [place] [address] [address] [place] [address] Orthopedic Surgery 11/03/19 Karthik Patel DO [address] [place] [address] [address] [place] [address] Cardiology 06/15/20 documented as of this encounter Additional Source Comments The information contained in this document represents components of the legal health record. It is not the complete legal health record.[facility]
--- OUTSIDE RECORDS SUMMARY | 2025-01-24 20:50 | XMS_ITS | Data Portability ---
Author Organization [place] [facility] Muna Fisher [place] Address [address] [place] [address] Assessment Encounter Date Assessment Date Assessment LastModified [...] more view 023 12/06/19 [email or web address] [facility], [address], [place], [address], 3 10:56:36 XR, knee, 4 or more view 023 12/06/19 [email or web address] [facility], [address], [place], [address], 3 10:56:36 Medication Orders None record ed. Patient TargetsNo targets recorded. Patient Instructions Encounter Date Encounter Id Patient Instructions Last Modified By Organization Details Last Modified Time 12/05/2022 [id number] X-ray of the rig ht knee reveals well-seated well-positioned total knee arthroplasty without sign of loosening. Left knee AP, Calzada, lateral and sunrise view reveals tricompartmental severe degenerative change. Not available 12/07/2022 08:40:15 Reason for Referral None Reported. Problems Name Problem SNOMED Code Status Onset Date Resolution Date Notes Provider Name and Address Organization Details Recorded Time Arthritis of right knee joint 11161580674 20673 Active 2018 Arthritis of knee, right Art hritis of right knee Not Available [facility] 5 00:26:20 Arthritis of left knee joint 08894825103 54362 Active 2018 Arthritis of knee, left Not Available [facility] 5 00:26:21 Problem Notes None recorded. Medical Equipment None Reported. Allergies Allergen ID Allergen Name Allergen Category Reaction Reaction Severity Criticality Documentation Date Start Date Code Code System Note Provider Name and Address Organization Details Recorded Time 553948 sertralin e medicatio n Not available Not available Not available 12/16/20242018 51545 RxNorm React ion: Other (See Comme nts), sever ity: Unkno wn;No energ y, sleep y Not Available [facility] 5 01:30:50 376429 bee pollen environme nt,medica tion Not available Not available Not available 12/16/20242018 43678 7 RxNorm React ion: Swell ing, sever ity: Unkno wn;Re actio n: Rash, sever ity: Unkno wn;Ra sh>si gnifi cant bruis ing - pt advis ed to carry epipe n for futur e Not Available [facility] 5 01:30:51 Medications Name Sig Start Date [...] ICD10 Code Diagnosis IMO Codes Diagnosis Note [id number] SHANNON ALEMAN [facility] [address] [facility] [address] [place] [address] 12/05/2022 13:04:58 12/05/2022 14:04:05 History of right total knee replacement 8959860150 628078 Z96.651 Pain of le ft knee joint 5214404699 89729 M25.562 Health Concerns Section Related Observation LastModified by Organization Detai ls LastModified Time None Recorded Concern Status LastModified by Organization Details LastModified Time None Recorded Advance Directives Directive None Recorded Payers Insurance Date Sequence Insurance Name Policy Number Policy Aaron Covered Member ID Aaron Member ID Guarantor Name 12/05/2022 1 [facility]: MEDICARE PPO BLUE (MEDICARE REPLACEMENT PPO) [id number] Lucinda Patel [id number] Lucinda Patel Notes Date Note Type [...] at this time. TAHIR BEAR PA-C [address] [facility] [address], [place], [address], [place] [facility] [place], P 12/07/2022 08:41:40 OBGyn Episode No OBEpisode recorded.
--- OUTSIDE RECORDS SUMMARY | 2025-01-24 20:50 | XMS_ITS | Clinical Summary ---
Author Organization [facility] [address] [facility] Address [address] [place] [address] Phone Care Team Providers Care Sales Marketing Director Name Role Phone Liborio Coello MD Primary Care Provider [phone] Allergies Active Allergy Reactions Criticality Noted Date [...] 1 tablet by mouth. Active glucos sul 1YWq-mjk-mexwk- C-Mn (Glucosamine Chondroitin) 550-30-1 mg capsule Take [...] Patient aware to call or message in [employer] pending symptomatic improvement. Patient would like to [...] sites 04/11/2018 Overview (09/24/2024): Followed by her body designer. Treated with Evista until 2020. By patient report bone density had improved and treatment was discontinued in 2020. 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 ([facility] V24) 04/11/2018 Ankle sprain 06/21/2012 Varicose [...] TOTAL KNEE; Surgeon: Michelet Connors MD; Location: [facility] Service: Orthopedics; Laterality: Right; JOINT REPLACEMENT [...] this topic Medical Devices Implanted Type Area Lab Aid Device Identifier Shelf Expiration Date Model / Serial / Lot Cement Simplex P Radiopaque Full Dose Bone 10 Pack - [id number] Implanted:Qty: 1 on 11/27/2019 by Michelet Connors MD Right: Knee [employer] 6191-010 / / Description:LOT [id number] Cement Simplex P Radiopaque Full Dose Bone 10 Pack - [id number] Implanted:Qty: 1 on 11/27/2019 by Michelet Connors MD Right: Knee [employer] 6191-010 / / [id number] Component Triathlon 3 Posterior Stabilized Cemented Femoral - [id number] Implanted:Qty: 1 on 11/27/2019 by Michelet Connors MD Right: Knee [employer] [id number] 04/20/2024 5515-F-302 / / [id number] Peg Triathlon Modular Fix Distal Femur Knee - [id number] Implanted:Qty: 1 on 11/27/2019 by Michelet Connors MD Right: Knee [employer] [id number] 02/28/2024 5575-X-000 / / [id number] Baseplate Triathlon 4 Primary Cemented Tibial Knee - [id number] Implanted:Qty: 1 on 11/27/2019 by Michelet Connors MD Right: Knee [employer] [id number] 05/18/2024 5520-B-400 / / [id number] Insert Triathlon 4 11mm Posterior Stabilized Bearing X3 - [id number] Implanted:Qty: 1 on 11/27/2019 by Michelet Connors MD Right: Knee [employer] [id number] 01/16/2024 5532-G-411 / / [id number] Component Triathlon 8mm 29mm Symmetric X3 Ptlar Totl Knee - [id number] Implanted:Qty: 1 on 11/27/2019 by Michelet Connors MD Right: Knee [employer] [id number] 05/06/2024 5550-G-298 / / PTRL Procedures Procedure [...] [place]OSS - [place]AGE Care Teams Sales Marketing Director Relationship Specialty Start Date End Date Liborio Coello MD [address] [place] [address] PCP - General Internal Medicine 07/02/18
--- OUTSIDE RECORDS SUMMARY | 2025-01-24 20:50 | XMS_ITS | Clinical Summary ---
Author Organization [facility] Address [address] [place] [address] Care Team Providers Care Wildlife Biologist Name Role Phone Liborio Coello MD Primary Care Provider [phone] Allergies Active Allergy Reactions Criticality Noted Date [...] this topic Medical Devices Implanted Type Area Operations Examiner Device Identifier Shelf Expiration Date Model / Serial / Lot Cement Simplex P Radiopaque Full Dose Bone 10 Pack - 144963 - [id number] Implanted:Qty: 1 on 11/27/2019 by Michelet Connors MD at [facility] Right: Knee [employer] 6191-1-010 / / Description:LOT [id number] Cement Simplex P Radiopaque Full Dose Bone 10 Pack - 742216 - [id number] Implanted:Qty: 1 on 11/27/2019 by Michelet Connors MD at [facility] Right: Knee [employer] 6191-1-010 / / [id number] Component Triathlon 3 Posterior Stabilized Cemented Femoral - 048233 - [id number] Implanted:Qty: 1 on 11/27/2019 by Michelet Connors MD at [facility] Right: Knee [employer] [id number] 04/20/2024 5515-F-302 / / [id number] Peg Triathlon Modular Fix Distal Femur Knee - 165952 - [id number] Implanted:Qty: 1 on 11/27/2019 by Michelet Connors MD at [facility] and [facility] Right: Knee [employer] [id number] 02/28/2024 5575-X-000 / / [id number] Baseplate Triathlon 4 Primary Cemented Tibial Knee - 911255 - [id number] Implanted:Qty: 1 on 11/27/2019 by Michelet Connors MD at [facility] and [facility] Right: Knee [employer] [id number] 05/18/2024 5520-B-400 / / [id number] Insert Triathlon 4 11mm Posterior Stabilized Bearing X3 - 344881 - [id number] Implanted:Qty: 1 on 11/27/2019 by Michelet Connors MD at [facility] and [facility] Right: Knee [employer] [id number] 01/16/2024 5532-G-411 / / [id number] Component Triathlon 8mm 29mm Symmetric X3 Ptlar Totl Knee - 159712 - [id number] Implanted:Qty: 1 on 11/27/2019 by Michelet Connors MD at [facility] and [facility] Right: Knee [employer] [id number] 05/06/2024 5550-G-298 / / PTRL Advance Directives For more information, please contact: [phone] Latest Code Status on File Code Status [...] way: discussion with patient . Care Teams Wildlife Biologist Relationship Specialty Start Date End Date Liborio Coello MD [address] [place] [address] PCP - General Internal Medicine 07/02/18
--- OUTSIDE RECORDS SUMMARY | 2025-01-24 20:50 | XMS_ITS | Clinical Summary ---
Author Organization [facility] Address [address] [facility] [address] [place] [address] Phone Care Team Providers Care Overlock Sleeve Setter Name Role Phone Liborio Coello MD Primary Care Provider [phone] Eamon Mayer MD Unavailable Arslan Hamlin MD Unavailable [phone] Michelet Connors MD Unavailable Karthik Patel DO Unavailable [phone] Allergies Active Allergy Reactions Criticality Noted Date [...] a stool softener as recommended by her railroad signal and switch operator, but she continues to have symptoms. They [...] son moving back to his apartment in [place] and concerns about her 's alcohol use. [...] second opinion I can refer her to [facility] vascular. Assessment & Plan (11/03/2019 12:07 PM EDT): Ankle edema is due to varicose veins. This should not be a significant complicating factor for surgery. 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 Treated with Evista until 2020. By patient [...] her diet. She will follow-up with her corncob pipe supervisor to discuss when she is due for another bone density. I told her that I can manage this in the future once her corncob pipe supervisor retires. Primary osteoarthritis of left knee 04/11/2018 Assessment & Plan (12/04/2024 3:50 PM EDT): Labs and EKG done earlier this week at [facility] were reviewed and showed no significant abnormality. [...] her back. Agree with recommendation from her aquatics manager to start physical therapy. If this is [...] EDT Telemedicine [facility] [address] [place] [address] Tanja Godfrey FNP Sleep disturbance (Primary Dx) 01/06/[address] [place] [address] Liborio Coello MD Medication Question 01/06/2025 Orders Only [address] [place] [address] ProviderOswaldo MD 12/17/[address] [place] [address] Liborio Coello MD orders (Hearing test) 12/04/2024 3:30 PM EDT Office Visit [address] [place] [address] Liborio Coello MD Primary osteoarthritis of left knee (Primary Dx); Degeneration of intervertebral disc of lumbar region with discogenic back pain; Overactive bladder; Recurrent major depressive disorder in partial remission 12/02/[address] [address] Liborio Coello MD Triage (Covid question) 11/11/[address] [place] [address] Cyndy Sarmiento MA Forms & Paperwork ([facility] PT 8/8/25) 11/05/2024 Telephone [facility] [address] [place] [address] Cyndy Sarmiento MA Forms & Paperwork (ATI [...] 07/16/2025 11:00 AM EDT Office Visit [facility] [address] [place] [address] Liborio Coello MD [address] [place] [address], [address] [place] [address] [email or web address] Health Maintenance Due Date Last Done Comments [...] PM EDT) HCV NON-REACTIV E NON-REACTI VE [facility] Blood 09/14/2020 12:2 9 PM EDT 09/14/2020 12:34 PM EDT Liborio Coello MD LAB BLOOD ORDERABLES Final Result [facility] [address] [place] [address] * MAMMOGRAPHY FOR RESULT ENTRY ONLY (05/11/2020) us Historical Provider HEALTH MAINTENANCE Edited Result - Final from Last 3 Months or Most Recently Relevant to Health Maintenance Insurance [facility] MEDICARE PPO BLUE REPLACEMENT [facility] MEDICARE PPO BLUE REPLACEMENT Member Subscriber Plan / Payer (Ef fective 2016-Present) Name:Lucinda Patel Relation to Subscriber:Self Name:Lucinda Patel Payer ID:[id number] (NAIC) Type:Medicare Address: [facility] [id number] [place], [place] Member Subscriber Plan / Payer (Ef fective 2016-Present) Name:Lucinda Patel Relation to Subscriber:Self Name:Lucinda Patel Payer ID:[id number] (NAIC) Type:Medicare Address: [facility] [id number] [place], [place] [address] MEDICARE PPO BLUE [address] [place] [address] MEDICARE PPO BLUE REPLACEMENT [place] [address] MEDICARE PPO BLUE REPLACEMENT [place] BLUE REPLACEMENT Care Teams Overlock Sleeve Setter Relationship Specialty Start Date End Date Liborio Coello MD [address] [place] [address], [address] [place] [address] PCP - General Family Medicine 04/01/18 Eamon Mayer MD [address] [place] [address] Obstetrics and Gynecology 01/10/19 Arslan Hamiln MD [address] [address] Gastroenterology 01/10/19 Michelet Connors MD [address] [place] [address] Dr [address] [place] [address] Orthopedic Surgery 11/03/19 Karthik Patel DO [address] [place] [address] Dr [address] [place] [address] Cardiology 06/15/20 Additional Source Comments The information contained in this document represents components of the legal health record. It is not the complete legal health record.[facility]
[2025-01-24 20:58] VITALS: BP 147/86; PULSE 75; RESP 16; TEMP 36.6; O2SAT 98
== END 2025-01-24 21:00 | disposition home or self-care (01) ==
PROVIDERS: Emergency Provider Emergency Medicine; PCP Internal Medicine
DX: R60.0 Localized edema (principal); Z98.890 Other specified postprocedural states; Z96.652 Presence of left artificial knee joint
CPT/HCPCS: 93971; 99284

== ENCOUNTER → 2025-01-24 17:22 | Outpatient (BNV) | payer MEDICARE, SELFPAY | PROVIDERS: Emergency Provider Emergency Medicine; PCP Internal Medicine; Visit Provider Radiology Diagnostic Radiology | DX: R60.0 Localized edema (principal); Z96.652 Presence of left artificial knee joint | CPT/HCPCS: 93971 ==

== ENCOUNTER 2025-02-09 14:39 | Outpatient (AMB) | payer MEDICARE, SELFPAY ==
--- OUTSIDE RECORDS SUMMARY | 2024-01-08 11:07 | XMS_ITS | Encounter Summary ---
Author Organization [facility] Address [address] [place] [address] Care Team Providers Care Terrazzo Grinder Name Role Phone Liborio Coello MD Primary Care Provider +1- [phone] Encounter Details Date Type Department Care Team (Late st Contact Info) Description 01/08/2024 12:07 PM EDT Hospital Encounter TH HISTORIC ENCOUNTERS EASTERN CONVERSION ONLY Arslan Delgadillo MD Need updated information Constipation, unspecified Social History Tobacco Use Types Packs/Day Years Used Date Smoking Tobacco: Never Smokeless Tobacco: Never Alcohol Use Standard Drinks/Week Comments Yes 1 (1 standard drink = 0.6 oz pur e alcohol) Comments Unknown Sex and Gender Information Value Date Recorded Sex Assigned at Not on file Legal Sex Female 3:59 PM EST Gender Identity Not on file Sexual Orientation Not on file documented as of this encounter Plan of Treatment Not on file documented as of this encounter Procedures Procedure Name Priority Date/Time Associated Diagnosis Comments DR ABDOMEN FLAT AND ERECT Routine 01/09/2024 8:05 AM EDT Constipation, unspecified documented in this encounter Results * DR ABDOMEN FLAT AND ERECT (01/09/2024 8:05 AM EDT) Anatomical Region Laterality Modality Radiographic Nisha ging 01/08/2024 12:1 5 PM EDT Narrative 01/09/2024 8:05 AM EDT [facility] Diagnostic Imaging Department [address] [place], [place] [address] Patient: JUAN PATEL /Age/Sex: 1950 - 73 - F Unit#: [id number] Location/Status: SPDIGEN/REG CLI Mnemonic/Ordering Site: ABDOFLEREC/SPDI Ordering Physician: ARSLAN DELGADILLO MD DR Abdomen Flat and Erect - 01/08/24 - 1232 Report Status:Signed HISTORY: The patient is a 73-year-old female with constipation. FINDINGS: Supine and erect views of the abdomen demonstrate degenerative changes and dextroscoliosis of the lumbar spine and levoscoliosis of the thoracolumbar spine. The bowel gas pattern is nonobstructive. There is a moderate amount of fecal material throughout the colon from the cecum to the rectum consistent with moderate constipation. No mass or radiopaque calculus is seen. IMPRESSION: Nonobstructive bowel gas pattern. There is evidence of moderate constipation. Code 66583 Dictating Physician: SHUKRI SURESH MD Electronically Signed by: SHUKRI SURESH MD Dic Date/Time: 01/09/24803 Sign date/Time: 01/09/24804 Procedure Note Shukri Suresh MD - 01/22/2024 [facility] Diagnostic Imaging Department [address] [place] [address] Patient: JUAN PATEL /Age/Sex: 1950 - 73 - F Unit#: [id number] Location/Status: SPDIGEN/REG CLI Mnemonic[facility] Ordering Physician: ARSLAN DELGADILLO MD DR Abdomen Flat and Erect - 01/08/24 - 1232 Report Status:Signed HISTORY: The patient is a 73-year-old female with constipation. FINDINGS: Supine and erect views of the abdomen demonstrate degenerative changes and dextroscoliosis of the lumbar spine and levoscoliosis of the thoracolumbar spine. The bowel gas pattern is nonobstructive. There is a moderate amount of fecal material throughout the colon from the cecum tothe rectum consistent with moderate constipation. No mass or radiopaquecalculus is seen. IMPRESSION: Nonobstructive bowel gas pattern. There is evidence ofmoderate constipation. Code 18690 Dictating Physician: SHUKRI SURESH MD Electronically Signed by: SHUKRI SURESH MD Dic Date/Time: 01/09/24803 Sign date/Time: 01/09/24804 Arslan Delgadillo MD IMG XR PROCEDURES Final Result documented in this encounter Visit Diagnoses Diagnosis Constipation, unspecified documented in this encounter Care Teams Terrazzo Grinder Relationship Specialty Start Date End Date Liborio Coello MD [address] [place] [address] PCP - General Internal Medicine 07/02/18 documented as of this encounter
--- NOTE | 2025-02-09 14:46 | MHC.OFFVIS ---
Vital Signs 02/09/25 14:53 Height 5 ft 1.5 in Weight 134 lb BMI 24.9 Intake Visit Reasons: PO- 6WKPO: L TKA w/DR 12/29/24 Intake Note: Lucinda is a 74 year old female who presents with complaints of mild to moderate discomfort and intermittent swelling in her left knee after undergoing left total knee replacement surgery on 12/29/2024. The patient did undergo right total knee replacement surgery several years ago. She reports minimal discomfort in her right knee. She continues with her physical therapy exercises. She is no longer taking narcotics for her discomfort. She continues to take Celebrex, acetaminophen and aspirin. Allergies bee pollen (bee stings) Allergy (Intermediate, Verified 02/09/25 14:55) Swelling for several weeks Medication List - Last Reconciled 02/10/25 by Michelet Connors MD acetaminophen 650 mg (2 x 325 mg) PO Q6H PRN 30 days aspirin 325 mg PO BID 42 days Bifidobacterium longum (Align (B.longum)) 10,000,000 cells PO DAILY biotin 10,000 mcg PO DAILY bupropion HCl XL 300 mg PO QAM calcium carbonate (Calcium 500) 1,000 mg PO BEDTIME celecoxib 200 mg PO BID cholecalciferol (vitamin D3) (Vitamin D3) 10 mcg PO BEDTIME uyyxckfbxxwj-ostc-zyqyy acid 18-400 mg-mcg (Centrum Women) 1 tab PO QAM polyethylene glycol 3350 (Miralax) 17 grams PO 2XW vibegron (Gemtesa) 75 mg PO QAM walker Folding front wheeled walker PFSH Medical History Family history of colon cancer in mother Spinal stenosis Scoliosis Back pain Varicose vein of leg Depression Osteoarthritis Surgical History History of lumpectomy of left breast Hx of varicose vein ligation H/O colonoscopy History of total right knee replacement Social History Household Members: Family Housing: House Are you a primary urgent care physician to a significant other at home: Yes (son w/Down's Syndrome) Do you presently have visiting nurse or other home services: No Patient Tobacco Use Status: Never used Tobacco service: No Current occupational status: retired Current occupation: rt handed Physical Exam Vital Signs: BMI result Body Mass Index 24.9 Const Other: Well-nourished well-developed very friendly female awake alert and oriented x3 in no acute distress Extrem Other: Left knee examination shows that the surgical incision is well healed, no erythema, full active extension and flexion to 115 degrees, her patella tracks well Assessment & Plan Assessment & Plan (1) Left knee pain: Code(s): M25.562 - Pain in left knee Category: Medical Plan Ms. Patel continues to do well after undergoing left total knee replacement surgery on 12/29/2024. I discussed with the patient the fact that her discomfort and swelling should continue to improve over the next few months. She is encouraged to continue with her physical therapy exercises. She does know to take antibiotics before any dental work. She will contact me prior to her follow-up appointment in 6-8 weeks should any questions or concerns arise. Feel free to call me at any time should questions regarding her orthopedic management arise. Coding Level of Care Code Global (25768) Diagnoses Left knee pain M25.562
[2025-02-09 14:53] VITALS: BMI 24.9
--- OUTSIDE RECORDS SUMMARY | 2025-02-10 04:56 | XMS_ITS | Data Portability ---
Author Organization [place] [facility] Muna Fisher [place] [place] Address [address] [place] [address] Assessment Encounter Date Assessment Date Assessment LastModified [...] more view 023 12/06/19 [email or web address] [facility], [address], [place], [address], 3 10:56:36 XR, knee, 4 or more view 023 12/06/19 [email or web address] [facility], [address], [place], [address], 3 10:56:36 Medication Orders None record ed. Patient TargetsNo targets recorded. Patient Instructions Encounter Date Encounter Id Patient Instructions Last Modified By Organization Details Last Modified Time 12/05/2022 [id number] X-ray of the rig ht knee reveals well-seated well-positioned total knee arthroplasty without sign of loosening. Left knee AP, Calzada, lateral and sunrise view reveals tricompartmental severe degenerative change. Not available 12/07/2022 08:40:15 Reason for Referral None Reported. Problems Name Problem SNOMED Code Status Onset Date Resolution Date Notes Provider Name and Address Organization Details Recorded Time Arthritis of right knee joint 72545798139 76336 Active 2018 Arthritis of knee, right Art hritis of right knee Not Available [facility] 5 00:26:20 Arthritis of left knee joint 15654833347 89502 Active 2018 Arthritis of knee, left Not Available [facility] 5 00:26:21 Problem Notes None recorded. Medical Equipment None Reported. Allergies Allergen ID Allergen Name Allergen Category Reaction Reaction Severity Criticality Documentation Date Start Date Code Code System Note Provider Name and Address Organization Details Recorded Time 476988 sertralin e medicatio n Not available Not available Not available 12/16/20242018 04016 RxNorm React ion: Other (See Comme nts), sever ity: Unkno wn;No energ y, sleep y Not Available [facility] 5 01:30:50 001333 bee pollen environme nt,medica tion Not available Not available Not available 12/16/20242018 97140 7 RxNorm React ion: Swell ing, sever ity: Unkno wn;Re actio n: Rash, sever ity: Unkno wn;Ra sh>si gnifi cant bruis ing - pt advis ed to carry epipe n for futur e Not Available [facility] 5 01:30:51 Medications Name Sig Start Date [...] ICD10 Code Diagnosis IMO Codes Diagnosis Note [id number] SHANNON ALEMAN [facility] [address] [facility] [address] [place] [address] 12/05/2022 13:04:58 12/05/2022 14:04:05 History of right total knee replacement 9683641589 067988 Z96.651 Pain of le ft knee joint 2446596446 [address]2376 M25.562 Health Concerns Section Related Observation LastModified by Organization Detai ls LastModified Time None Recorded Concern Status LastModified by Organization Details LastModified Time None Recorded Advance Directives Directive None Recorded Payers Insurance Date Sequence Insurance Name Policy Number Policy Aaron Covered Member ID Aaron Member ID Guarantor Name 12/05/2022 1 [facility] [place] BLUE (MEDICARE REPLACEMENT PPO) [id number] Lucinda Patel [id number] Lucinda Patel Notes Date Note Type [...] at this time. TAHIR BEAR PA-C [address] [facility] [address], [place], [address], [place] [facility] [place], P 12/07/2022 08:41:40 OBGyn Episode No OBEpisode recorded.
--- OUTSIDE RECORDS SUMMARY | 2025-02-10 04:56 | XMS_ITS | Data Portability ---
Author Organization [place] - [facility], [facility] Address [address] [place] [address] Care Team Providers Care Billet Recorder Name Role Phone JACOB HYDE Primary Care Provider Assessment Encounter Date Assessment Date Assessment LastModified by Organization Details LastModified Time 02/06/2025 02/06/2025 74-year-old female with scoliosis probably present for decades. 30 degree curve. No role for aggressive care. Patient reassured this regard. Her low back pain consistent with her lumbar degenerative disc condition which has been confirmed on radiographs today. Responded to physical therapy previously and was going to restart that once her total knee therapy is completed. Would continue with the present medication regimen of Tylenol and Celebrex on a as needed basis. Natural history reviewed and questions answered. Follow-up to be arranged. [email or web address] Not available 02/06/2025 12:14:32 Plan of Treatment Reminders Order Date Submit Date Provider Last Modified By Organization Details Last Modified Time Details Appointments None recorded. Lab None recorded. Referral physical therapist referral - Evaluate & Rx Lumbar Stabilizati on Program 2024 025 [email or web address] Not available 13:21:14 Procedures None recorded. Surgeries None recorded. Imaging XR, spine, scoliosis series - pt in lobby, scoli series ap and lateral 2024 025 [email or web address] [facility], [address], [facility] [address], [place], [address], 5 12:06:50 Medication Orders None recorded. Patient TargetsNo targets recorded. Patient InstructionsNo instructions recorded. Reason for Referral Physical Therapist Referral for Scoliosis deformity of spine Evaluate & RxLumbar Stabilization Program Referring Physician: Reese Chang, Orthopedic Surgery, Encounter Date: 02/06/2025 Medical Equipment None Reported. Allergies Allergen ID Allergen Name Allergen Category Reaction Reaction Severity Criticality Documentation Date Start Date Code Code System Note Provider Name and Address Organization Details Recorded Time 110365 bee pollen environme nt,medica tion rash swelling Not available Not available low 02/06/20252018 08242 7 RxNorm Rash> signi fican t brujose ing - pt advis ed to carry epipe n for futur e Not Available [employer] - prod 10:44:35 [id number] sertralin e medicatio n Not available Not available low 02/06/20252018 65642 RxNorm No energ y, sleep y Not Available [employer] - prod 10:44:35 Medications Name Sig Start Date Stop Date Status Note LastModified by Organization Details LastModified Time celecoxib 200 mg capsule TAKE 1 CAPSULE BY MOUTH TWICE A DAY active Not Available Not Available No t Available azithromyci n 250 mg tablet TAKE 2 TABLETS BY MOUTH TODAY, THEN TAKE 1 TABLET DAILY FOR 4 DAYS DIRECTED 02/06 completed Not Available Not Available Not Available benzonatate 200 mg capsule TAKE 1 CAPSULE BY MOUTH THREE TIMES A DAY FOR 7 DAYS active Not Available Not Available No t Available meloxicam 15 mg tablet TAKE 1 TABLET (15 MG TOTAL) BY MOUTH NEEDED. active Not Available Not Available No t Available ciprofloxac in 500 mg tablet TAKE 1 TABLET BY MOUTH TWICE A DAY WITH FOOD FOR 10 DAYS 02/06 completed Not Available Not Available Not Available triamcinolo ne acetonide 0.1 % topical cream APPLY THIN LAYER TWICE A DAY TO SKIN AROUND AFFECTED FINGERNAI L USE IN CONJUNCTI ON WITH CICLOPIRO X active Not Available Not Available No t Available gentamicin 0.3 % eye drops INSTILL 1-2 DROPS INTO NAIL TWICE A DAY 02/06 completed Not Available Not Available Not Available benzonatate 100 mg capsule TAKE 1 CAPSULE BY MOUTH THREE TIMES A DAY NEEDED FOR COUGH FOR 7 DAYS active Not Available Not Available No t Available cephalexin 500 mg capsule TAKE 1 CAPSULE BY MOUTH 3 TIMES A DAY FOR 10 DAYS 02/06 completed Not Available Not Available Not Available albuterol sulfate HFA 90 mcg/actuati on aerosol inhaler TAKE 1 PUFF 3 TIMES DAILY active Not Available Not Available No t Available ciclopirox 0.77 % topical cream APPLY THIN LAYER TWICE A DAY TO SKIN AROUND AFFECTED FINGERNAI L USE IN CONJUNCTI ON W/ TRIAMCINO LONE active Not Available Not Available No t Available bupropion HCl XL 300 mg 24 hr tablet, extended release TAKE 1 TABLET BY MOUTH EVERY DAY active Not Available Not Available No t Available Myrbetriq 50 mg tablet,exte nded release TAKE 1 TABLET BY MOUTH EVERY DAY active Not Available Not Available No t Available Gemtesa 75 mg tablet TAKE 1 TABLET DAILY active Not Available Not Available No t Available Vitals Date Recorded Body height Body mass index (BMI) Body weight Provider Name and Address Organization Details Last Updated DateTime 02/06/2025 153.67 cm 25.9 kg/m2 23553.97 g Melva steele [place] - [facility] 02/06/2025 11:12:51 Social History None recorded. Functional Status None recorded. Mental Status None recorded. Family History Nothing Reported. Medical History No medical history recorded. Gynecological HistoryNo gynecological history recorded. Obstetrics History GPAL:G 0 P 0 0 0 0 Past Encounters Encounter ID Performer Location Encounter Start Date Encounter Closed Date Diagnosis/Indication Diagnosis SNOMED-CT Code Diagnosis ICD10 Code Diagnosis IMO Codes Diagnosis Note [id number] Reese Chang MD [facility] [address] [place] [address] 02/06/2025 10:37:31 02/06/2025 12:14:52 Scoliosis deformity of spine 190150572 M41.9 99181511 Health Concerns Section Related Observation LastModified by Organization Detai ls LastModified Time None Recorded Concern Status LastModified by Organization Details LastModified Time None Recorded Advance Directives Directive None Recorded Payers Insurance Date Sequence Insurance Name Policy Number Policy Aaron Covered Member ID Aaron Member ID Guarantor Name 02/06/2025 1 [place] (MEDICARE REPLACEMENT PPO) [id number] Lucinda Patel [id number] Lucinda Patel 02/06/2025 1 [place] [employer] Lucinda Patel [id number] Lucinda Patel Notes Date Note Type Note Provider Name and Address Organization Details Recorded Time 02/06/2025 text/html ROS as noted in the HPI HPI: 74-year-old female presents with low back pain chronic for years. Recently underwent a total knee arthroplasty left. Prior to that was in physical therapy which was helpful. No radiating arm pain leg pain numbness or weakness described. Pain 4-6 out of 10. Episodic. Occasionally awakens her at night. No balance issues or fine motor skill deterioration and no bowel or bladder complaints that are new. Also concerned that she was diagnosed with scoliosis based on a chest film over the summer. No treatment for thatPFMSH and ROS has been reviewed, updated and is located in the patient s chart.TREATMENT: Physical therapy. No injections no surgeryMEDICATIONS: Tylenol Celebrex which are helpfulWORK STATUS: RetiredIMAGING: Full-length PA erect spine films confirms a 30 degree thoracic scoliosis apex is right. Lumbar curve apex left at 20 degrees. Diffuse arthrosis particularly in the lower lumbar segments.X-RAY REPORT: X-rays ordered, obtained and reviewed at [facility]. As above Reese Chang MD [address] [facility] [address], [place], [address], [place] - [facility] 02/06/2025 12:14:51 OBGyn Episode No OBEpisode recorded.
--- OUTSIDE RECORDS SUMMARY | 2025-02-10 04:56 | XMS_ITS | Clinical Summary ---
Author Organization [facility] [address] [facility] Address [address] [place] [address] Phone Care Team Providers Care Hydrology Teacher Name Role Phone Liborio Coello MD Primary Care Provider [phone] Allergies Active Allergy Reactions Criticality Noted Date [...] 1 tablet by mouth. Active glucos sul 6PSc-nay-kuxjh- C-Mn (Glucosamine Chondroitin) 550-30-1 mg capsule Take [...] Patient aware to call or message in [employer] pending symptomatic improvement. Patient would like to [...] sites 04/11/2018 Overview (09/24/2024): Followed by her fence installer helper. Treated with Evista until 2020. By patient report bone density had improved and treatment was discontinued in 2020. 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); Service: Orthopedics; Laterality: Right; JOINT REPLACEMENT [...] this topic Medical Devices Implanted Type Area Licensed Physical Therapist Assistant Device Identifier Shelf Expiration Date Model / Serial / Lot Cement Simplex P Radiopaque Full Dose Bone 10 Pack - [id number] Implanted:Qty: 1 on 11/27/2019 by Michelet Connors MD Right: Knee [employer] 6191-010 / / Description:LOT [id number] Cement Simplex P Radiopaque Full Dose Bone 10 Pack - [id number] Implanted:Qty: 1 on 11/27/2019 by Michelet Connors MD Right: Knee [employer] 6191-010 / / [id number] Component Triathlon 3 Posterior Stabilized Cemented Femoral - [id number] Implanted:Qty: 1 on 11/27/2019 by Michelet Connors MD Right: Knee [employer] [id number] 04/20/2024 5515-F-302 / / [id number] Peg Triathlon Modular Fix Distal Femur Knee - [id number] Implanted:Qty: 1 on 11/27/2019 by Michelet Connors MD Right: Knee [employer] [id number] 02/28/2024 5575-X-000 / / [id number] Baseplate Triathlon 4 Primary Cemented Tibial Knee - [id number] Implanted:Qty: 1 on 11/27/2019 by Michelet Connors MD Right: Knee [employer] [id number] 05/18/2024 5520-B-400 / / [id number] Insert Triathlon 4 11mm Posterior Stabilized Bearing X3 - [id number] Implanted:Qty: 1 on 11/27/2019 by Michelet Connors MD Right: Knee [employer] [id number] 01/16/2024 5532-G-411 / / [id number] Component Triathlon 8mm 29mm Symmetric X3 Ptlar Totl Knee - [id number] Implanted:Qty: 1 on 11/27/2019 by Michelet Connors MD Right: Knee [employer] [id number] 05/06/2024 5550-G-298 / / [id number] Procedures Procedure [...] [place] - [place] Care Teams Hydrology Teacher Relationship Specialty Start Date End Date Liborio Coello MD [address] [place] [address] PCP - General Internal Medicine 07/02/18
== END 2025-02-09 15:38 | disposition home or self-care (01) ==
LOC: HO.HOS 14:39
PROVIDERS: PCP Internal Medicine; Visit Provider Orthopaedic Surgery
DX: M25.562 Pain in left knee (principal)
CPT/HCPCS: 99024

== ENCOUNTER → 2025-02-09 14:39 | Outpatient (BNVA) | payer MEDICARE, SELFPAY | PROVIDERS: PCP Internal Medicine; Visit Provider Orthopaedic Surgery | DX: M25.562 Pain in left knee (principal); Z98.890 Other specified postprocedural states | CPT/HCPCS: 99212 ==